=== PATIENT | female | born 1940 | race Caucasian/White ===

== ENCOUNTER 2018-10-26 23:47 | Inpatient (IN) ==
[2018-10-27] MEDS ORDERED: 0.9 % SODIUM CHLORIDE 1,000 ML IV ONE (00:08)
[2018-10-27] MEDS ORDERED: ONDANSETRON 4 MG/2 ML VIAL IV ONE (00:08)
--- NOTE | 2018-10-27 00:21 | Emergency Department Note ---
General Adult HPI - General Chief complaint: Fall Stated complaint: fall, cough, fever Time Seen by Provider: 10/27/18 00:07 Source: patient, EMS Mode of arrival: ambulatory Limitations: no limitations - History of Present Illness HPI Narrative: This 78-year-old female lives alone in her duplex. She fell down sometime this evening a couple of hours ago and was not able to get back up. She tried calling her friend who eventually called 911 for her and they were able to break into her house. She was generally weak but not able to stand on her legs and was brought in. There were no focal deficits. She had a temperature of 102 tympanic. She seemed a little confused as to the last 48 hours but other than that seem to remember things well. Here she seems to be able to answer questions fairly well. She describes some dizziness and li ghtheadedness earlier. She describes having dry lips every night. She has had a wet cough/cold for a few days. She has had a worsening asthma in the past 5 or 6 days. She does not use oxygen at home except at night. REVIEW OF SYSTEMS: Has had fevers, chills and sweats. Some sore throat and runny nose but no nasal congestion. No chest pain Has been coughing. Not short of breath. No wheezing or phlegm. No abdominal pain, nausea, diarrhea. Has had a little constipation. No dysuria but has had some difficulty emptying her bladder. Has some chronic back pain for which she has spinal cord stimulator and epidural infusion pump. Some headaches. No specific weakness although was found to be quite weak of her legs as paramedics try to help her.. Some dizziness No anxiety or depression she says but generalized anxiety disorder is in her old records. - Related Data Home Medications Medication Instructions Recorded Confirmed Albuterol Sulfate [Proair Hfa] 8.5 gm IH Q4H 06/01/15 06/01/15 Aspirin [Lite Coat Aspirin] 325 mg PO DAILY 06/01/15 06/01/15 Bisacodyl [Dulcolax] 10 mg PO HS 06/01/15 06/01/15 Bisoprolol Fumarate [Zebeta] 5 mg PO DAILY 06/01/15 06/01/15 Budesonide [Pulmicort] 0.5 mg IH BID 06/01/15 06/01/15 Diclofenac Sodium [Voltaren] 100 gm TP QIDP PRN 10/05/15 10/05/15 Esomeprazole Magnesium [Nexium] 40 mg PO DAILY 06/01/15 06/01/15 Estrogens, Conjugated [Premarin] 0.5 appful VAG Q48H 06/01/15 06/01/15 Gabapentin [Neurontin] 600 mg PO TID 06/01/15 06/01/15 HYDROcodone/APAP 10/325MG [[place] 1 - 2 tab PO Q4-6HP PRN 06/01/15 06/01/15 10/325Mg] Levothyroxine Sodium [Synthroid] 50 mcg PO DAILY 06/01/15 06/01/15 Menthol/Herbal Drugs [Cough Drops] 1 each MM PRN PRN 06/01/15 06/01/15 Montelukast [Singular] 10 mg PO DAILY 06/01/15 06/01/15 Nitroglycerin [Nitrostat] 0.4 mg SL Q5M PRN 06/01/15 06/01/15 Polyethylene Glycol 3350 [Miralax] 17 gm PO DAILY 06/01/15 06/01/15 Propylene Glycol/Peg 400 [Systane 1 - 2 drops OP PRN PRN 06/01/15 06/01/15 Gel Eye Drops] Psyllium Seed (with Sugar) 1,368 gm PO DAILY 06/01/15 06/01/15 [Metamucil Powder] busPIRone [Buspar] 7.5 mg PO DAILY 06/01/15 06/01/15 guaiFENesin [Mucinex] 600 mg PO PRN PRN 06/01/15 06/01/15 metFORMIN HCL [Glucophage] 500 mg PO DAILY 06/01/15 06/01/15 morphine SULFATE IN 0.9 % NACL 30 mg IV .COMPLEX 06/01/15 06/01/15 [Morphine-Ns 30 mg/30 ml] predniSONE [Prednisone] 1 mg PO Q48 06/01/15 06/01/15 predniSONE [Prednisone] 5 mg PO Q48H 06/01/15 06/01/15 valACYclovir [Valtrex] 1,000 mg PO DAILY 06/01/15 06/01/15 Allergies Allergy/AdvReac Type Severity Reaction Status Date / Time niacin Allergy Severe Rash Verified 06/01/15 15:10 oxycodone [From OxyContin] AdvReac Severe Unknown Verified 06/05/15 07:51 bacitracin AdvReac Unknown Verified 06/05/15 07:51 [From Neosporin ([id number])] Neomycin AdvReac Unknown Verified 06/05/15 07:51 [From Neosporin ([id number])] polymyxin B AdvReac Unknown Verified 06/05/15 07:51 [From Neosporin ([id number])] pravastatin [From Pravachol] AdvReac Unknown Verified 06/05/15 07:51 Sulfa (Sulfonamide AdvReac Unknown Verified 06/05/15 07:51 Antibiotics) sulfamethoxazole AdvReac Unknown Verified 06/05/15 07:51 [From Bactrim] trimethoprim [From Bactrim] AdvReac Unknown Verified 06/05/15 07:51 Past Medical History - Past Medical History [facility] Narrative: Medical History (Last Updated 10/27/18 @ 01:17 by Benji Martinez DO) Diabetes mellitus type 2, uncontrolled (Chronic) Hypertension, essential (Chronic) Chronic, continuous use of opioids (Chronic) Obesity (BMI 30-39.9) (Chronic) Chronic use of steroids (Chronic) Osteoarthritis (Chronic) GERD (gastroesophageal reflux disease) (Chronic) Hypothyroidism, acquired (Chronic) COPD (chronic obstructive pulmonary disease) (Chronic) Asthma, chronic (Chronic) Post herpetic neuralgia (Chronic) Osteoporosis (Chronic) Back Pain (Chronic) DDD (degenerative disc disease) (Chronic) Chronic constipation (Chronic) Anxiety, generalized (Chronic) DNR per patient request/conversation on admit; was lucid and appropriate. Source: old records reviewed Psychiatric history: Reports: anxiety. Denies: depression - Social History smoking status: Never smoker Alcohol use: Reports: None Drug use: Reports: none. Denies: marijuana Physical Exam Limitations: physical limitation General appearance: lethargic (Bedbound), malaise, sleepy Head: atraumatic, normocephalic Eye: Present: PERRL, EOMI (although at times appearance of "lazy eye" slightly), scleral icterus (trace), conjunctival injection (moderate-severe) ENT: mucous membranes dry, nasal congestion, hoarse voice Neck: Present: trachea midline. Absent: lymphadenopathy, thyromegaly Chest: Present: symmetric chest wall rise Respiratory: Present: normal lung sounds bilaterally. Absent: respiratory distress, wheezes, stridor, accessory muscle use, prolonged expiratory phase Cardiovascular: Present: regular rate, normal rhythm. Absent: systolic murmur, diastolic murmur Abdominal: Present: soft. Absent: distention, tenderness, guarding, rebound, rigidity, organomegaly, mass Extremities: Absent: pedal edema, pretibial edema, calf tenderness Back: Absent: CVA tenderness (R), CVA tenderness (L) Neurological: Present: oriented X3, CN II-XII intact, other (Quickly and easily seems to fall asleep.) Psychiatric: Present: flat affect, serious Skin: Present: warm, dry Course Vital Signs Temperature 100.0 F H 10/26/18 23:49 Pulse Rate 71 10/26/18 23:49 Respiratory Rate 20 10/26/18 23:49 Blood Pressure 149/53 10/26/18 23:49 Pulse Oximetry (%) 90 10/26/18 23:49 Temperature 100.0 F H 10/26/18 23:49 Pulse Rate 93 H 10/27/18 02:00 Respiratory Rate 16 10/27/18 02:00 Blood Pressure 150/56 10/27/18 02:00 Pulse Oximetry (%) 93 10/27/18 02:00 Medical Decision Making - [facility] Narrative Medical decision making narrative: 11:54 PM Fall for uncertain exact reason. We will do multitude of test. Has URI symptoms for the past 4 days. Will include influenza and chest x-ray and EKG. - Medical Records Medical records reviewed: Yes I reviewed the patient's medical records. - Lab Data Lab results reviewed: Yes I reviewed the patient's lab results. Result diagrams: 10/27/18 00:15 10/27/18 00:15 Lab Results 10/27/18 10/27/18 10/27/18 Range/Units 00:15 00:15 00:15 WBC 6.4 (4.5-11.0) K/mcL RBC 4.04 (4.00-5.20) M/mcL Hgb 11.6 L (12.0-15.0) g/dL Hct 35.6 L (36.0-48.0) % MCV 88.0 (80.0-100.0) fL MCH 28.6 (26.0-34.0) pg MCHC 32.5 (31.0-36.0) g/dL RDW 14.7 H (11.5-14.5) % Plt Count 135 L (140-440) K/mcL MPV 10.4 (7.4-10.4) fL Gran % 59.6 (38.0-78.0) % Lymph % (Auto) 24.8 (15.5-49.0) % [place] % (Auto) 14.6 H (1.0-12.0) % Eos % (Auto) 0.5 (0.0-7.0) % Baso % (Auto) 0.5 (0.0-2.0) % Gran # 3.8 (1.8-8.0) K/mcL Lymph # (Auto) 1.6 (1.5-4.8) K/mcL [place] # (Auto) 0.9 (0.1-0.9) K/mcL Eos # (Auto) 0 (0.0-0.7) K/mcL Baso # (Auto) 0 (0.0-0.3) K/mcL VBG Lactic Acid (0.5-2.0) mmol/L Sodium 136 (133-145) mmol/L Potassium 4.4 (3.3-5.1) mmol/L Chloride 96 (96-108) mmol/L Carbon Dioxide 29 (22-30) mmol/L Anion Gap 11.0 (8-16) BUN 21 (8-23) mg/dl Creatinine 1.0 (0.6-1.1) mg/dl GFR Calculation 53 Glucose 126 H (70-105) mg/dL Calcium 9.4 (8.6-10.4) mg/dl Total Bilirubin 0.5 (0.0-1.0) mg/dL AST 19 (0-37) U/l ALT 10 (0-40) U/l Alkaline Phosphatase 52 (39-117) U/L Troponin T (0-0.03) ng/ml Total Protein 7.4 (5.9-8.4) gm/dL Albumin 4.5 (3.2-5.2) gm/dL Globulin 2.9 (2.2-3.7) gm/dL Albumin/Globulin Ratio 1.6 (1.0-2.3) Procalcitonin (<0.10) ng/mL Urine Color Yellow Urine Appearance Clear Urine pH 5.5 (5.0-9.0) Ur Specific [place] 1.015 (1.003-1.030) Urine Protein Neg (NEG) mg/dL Urine Glucose (UA) Norm (NEG) mg/dL Urine Ketones Neg (NEG) mg/dL Urine Occult Blood Trace (<0.03) mg/dL Urine Nitrate Pos A (NEG) Urine Bilirubin Neg (NEG) mg/dL Urine Urobilinogen Norm (NEG) mg/dL Ur Leukocyte Esterase 1+ (small) (NEG) /uL Urine RBC 1 (0-1) /hpf Urine WBC 26 H (0-4) /hpf Ur Squamous Epith Cells < 1 (0-4) /hpf Urine Bacteria Few A (0) /hpf Urine Mucus Few (0) /hpf Ur Culture Indicated? Yes Ethyl Alcohol (<0.010) gm/dl 10/27/18 10/27/18 10/27/18 Range/Units 00:15 00:15 00:15 WBC (4.5-11.0) K/mcL RBC (4.00-5.20) M/mcL Hgb (12.0-15.0) g/dL Hct (36.0-48.0) % MCV (80.0-100.0) fL MCH (26.0-34.0) pg MCHC (31.0-36.0) g/dL RDW (11.5-14.5) % Plt Count (140-440) K/mcL MPV (7.4-10.4) fL Gran % (38.0-78.0) % Lymph % (Auto) (15.5-49.0) % [place] % (Auto) (1.0-12.0) % Eos % (Auto) (0.0-7.0) % Baso % (Auto) (0.0-2.0) % Gran # (1.8-8.0) K/mcL Lymph # (Auto) (1.5-4.8) K/mcL [place] # (Auto) (0.1-0.9) K/mcL Eos # (Auto) (0.0-0.7) K/mcL Baso # (Auto) (0.0-0.3) K/mcL VBG Lactic Acid 1.5 (0.5-2.0) mmol/L Sodium (133-145) mmol/L Potassium (3.3-5.1) mmol/L Chloride (96-108) mmol/L Carbon Dioxide (22-30) mmol/L Anion Gap (8-16) BUN (8-23) mg/dl Creatinine (0.6-1.1) mg/dl GFR Calculation Glucose (70-105) mg/dL Calcium (8.6-10.4) mg/dl Total Bilirubin (0.0-1.0) mg/dL AST (0-37) U/l ALT (0-40) U/l Alkaline Phosphatase (39-117) U/L Troponin T (0-0.03) ng/ml Total Protein (5.9-8.4) gm/dL Albumin (3.2-5.2) gm/dL Globulin (2.2-3.7) gm/dL Albumin/Globulin Ratio (1.0-2.3) Procalcitonin 0.52 (<0.10) ng/mL Urine Color Urine Appearance Urine pH (5.0-9.0) Ur Specific [place] (1.003-1.030) Urine Protein (NEG) mg/dL Urine Glucose (UA) (NEG) mg/dL Urine Ketones (NEG) mg/dL Urine Occult Blood (<0.03) mg/dL Urine Nitrate (NEG) Urine Bilirubin (NEG) mg/dL Urine Urobilinogen (NEG) mg/dL Ur Leukocyte Esterase (NEG) /uL Urine RBC (0-1) /hpf Urine WBC (0-4) /hpf Ur Squamous Epith Cells (0-4) /hpf Urine Bacteria (0) /hpf Urine Mucus (0) /hpf Ur Culture Indicated? Ethyl Alcohol < 0.010 (<0.010) gm/dl 10/27/18 Range/Units 00:15 WBC (4.5-11.0) K/mcL RBC (4.00-5.20) M/mcL Hgb (12.0-15.0) g/dL Hct (36.0-48.0) % MCV (80.0-100.0) fL MCH (26.0-34.0) pg MCHC (31.0-36.0) g/dL RDW (11.5-14.5) % Plt Count (140-440) K/mcL MPV (7.4-10.4) fL Gran % (38.0-78.0) % Lymph % (Auto) (15.5-49.0) % [place] % (Auto) (1.0-12.0) % Eos % (Auto) (0.0-7.0) % Baso % (Auto) (0.0-2.0) % Gran # (1.8-8.0) K/mcL Lymph # (Auto) (1.5-4.8) K/mcL [place] # (Auto) (0.1-0.9) K/mcL Eos # (Auto) (0.0-0.7) K/mcL Baso # (Auto) (0.0-0.3) K/mcL VBG Lactic Acid (0.5-2.0) mmol/L Sodium (133-145) mmol/L Potassium (3.3-5.1) mmol/L Chloride (96-108) mmol/L Carbon Dioxide (22-30) mmol/L Anion Gap (8-16) BUN (8-23) mg/dl Creatinine (0.6-1.1) mg/dl GFR Calculation Glucose (70-105) mg/dL Calcium (8.6-10.4) mg/dl Total Bilirubin (0.0-1.0) mg/dL AST (0-37) U/l ALT (0-40) U/l Alkaline Phosphatase (39-117) U/L Troponin T < 0.01 (0-0.03) ng/ml Total Protein (5.9-8.4) gm/dL Albumin (3.2-5.2) gm/dL Globulin (2.2-3.7) gm/dL Albumin/Globulin Ratio (1.0-2.3) Procalcitonin (<0.10) ng/mL Urine Color Urine Appearance Urine pH (5.0-9.0) Ur Specific [place] (1.003-1.030) Urine Protein (NEG) mg/dL Urine Glucose (UA) (NEG) mg/dL Urine Ketones (NEG) mg/dL Urine Occult Blood (<0.03) mg/dL Urine Nitrate (NEG) Urine Bilirubin (NEG) mg/dL Urine Urobilinogen (NEG) mg/dL Ur Leukocyte Esterase (NEG) /uL Urine RBC (0-1) /hpf Urine WBC (0-4) /hpf Ur Squamous Epith Cells (0-4) /hpf Urine Bacteria (0) /hpf Urine Mucus (0) /hpf Ur Culture Indicated? Ethyl Alcohol (<0.010) gm/dl - Radiology Data Radiology results reviewed: Yes I reviewed the patient's radiology results. - EKG Data EKG #1 EKG results narrative: No acute coronary syndrome findings. This ECG will be read by a final finisher forging dies. 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 Of note also is that she was found to have soiled clothing as far as stooling and urine and so there was a significant self-care deficit for hygiene. Her weakness did not allow her to get up after falling and so she is not able to return home and care for herself. Influenza A was positive. Oseltamivir was ordered for twice daily. She is not needing extra oxygen compared to her usual 2 L at night. Her chest x-ray demonstrates a lot of scarring but no specific new infiltrate that I iden tified. Sandhu catheter was placed and 400 cc of urine were immediately drained indicating at least some degree of urinary retention. Urine was positive for nitrates and WBCs. Antibiotic was not initiated at this point. Fever hovered around 101.0 several times. Acetaminophen was given. Even though her lips were markedly dry and cracked and mouth a bit dry, she did not appear to be that badly dehydrated with a BUN of 21 and creatinine of 1.1. 2:12 AM I spoke with Dr. Cary, hospitalist, who kindly accepts this patient for additional observation, treatment, and possible arrangements for her future care due to her self-care deficit. Disposition: Xfer As Outpt/Obs ([facility]) Referrals: Hans Arias MD [Primary Care Provider] -
[2018-10-27 01:10] LABS: Basophils # (Auto) 0 K/mcL (0.0-0.3); Basophils % (Auto) 0.5 % (0.0-2.0); Eosinophils # (Auto) 0 K/mcL (0.0-0.7); Eosinophils % (Auto) 0.5 % (0.0-7.0); Granulocytes % (Auto) 59.6 % (38.0-78.0); Lymphocytes # (Auto) 1.6 K/mcL (1.5-4.8); Lymphocytes % (Auto) 24.8 % (15.5-49.0); Mean Corpuscular HGB Conc 32.5 g/dL (31.0-36.0); Monocytes # (Auto) 0.9 K/mcL (0.1-0.9); Monocytes % (Auto) 14.6 % (1.0-12.0); Platelet Count 135 K/mcL (140-440); RBC 4.04 M/mcL (4.00-5.20); Red Cell Distribution Width 14.7 % (11.5-14.5)
[2018-10-27 01:27] LABS: ALT/SGPT 10 U/l (0-40); Albumin 4.5 gm/dL (3.2-5.2); Albumin/Globulin Ratio 1.6 (1.0-2.3); Alkaline Phosphatase 52 U/L (39-117); Blood Urea Nitrogen 21 mg/dl (8-23)
[2018-10-27 01:28] LABS: Appearance,Urine CLEAR; Bacteria,Urine FEW /hpf (0); Bilirubin,Urine NEG (NEG); Color,Urine YELLOW; Glucose,Urine (UA) NORM (NEG); Leukocyte Esterase,Urine 1+ (SMALL) /uL (NEG); Mucus,Urine FEW /hpf (0); PH,Urine 5.5 (5.0-9.0); Protein,Urine NEG (NEG); Specific Gravity,Urine 1.015 (1.003-1.030); Urine Blood TRACE mg/dL (<0.03); Urine RBC 1 /hpf (0-1); Urine Squamous Epithelial Cell < 1 /hpf (0-4); Urine WBC 26 /hpf (0-4); Urobilinogen,Urine NORM (NEG)
[2018-10-27] MEDS ORDERED: ACETAMINOPHEN 325 MG TABLET PO ONE (01:59)
[2018-10-27] MEDS ORDERED: PROCHLORPERAZINE 10 MG/2 ML VIAL IV ONE (01:59)
[2018-10-27] MEDS ORDERED: NALOXONE HCL 0.4 MG/ML VIAL IV PRN (02:04)
[2018-10-27] MEDS ORDERED: PROMETHAZINE 25 MG/ML VIAL IM PRN (02:04)
--- NOTE | 2018-10-27 04:05 | Cat Scan Report ---
CLINICAL INFORMATION: Confusion COMPARISON: None. TECHNIQUE: 2.5 mm helical slices were obtained in the skull base to vertex. Following reconstruction, axial reformatted images were reviewed at bone and parenchymal windows. The exam was performed using radiation dose optimization techniques including, but not limited to, automated exposure control, adjustment of the mA and/or kV according to patient size and use of iterative reconstruction technique. FINDINGS: The ventricles, sulci, fissures, and cisterns are symmetrically enlarged compatible with moderate age-related atrophy - no extra-axial fluid collection or mass appreciated. Mild patchy chronic ischemic change in the deep periventricular white matter is expected for age. A few remote lacunar infarcts noted in the basal ganglia and deep cerebral white matter. There is no intracerebral hemorrhage, mass effect, or edema. Bone windows show no significant osseous abnormality. There are small air-fluid levels in both maxillary sinuses and moderate mucosal thickening in the ethmoid sinuses. 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 No hemorrhage, edema or other acute intracerebral finding. Mild bilateral maxillary and ethmoid sinusitis. Interpreted and Authenticated by: Joshua Melissa 10/27/18
--- NOTE | 2018-10-27 04:06 | XRay Report ---
CLINICAL INFORMATION: FALL COMPARISON: 10/22/2009 FINDINGS: Film taken a suboptimal inspiratory result accentuates the cardiomediastinal silhouette. The heart is mildly enlarged, but unchanged. Mediastinum and pulmonary vessels are normal. The interstitial markings throughout both lungs are more prominent than expected likely a result of poor inspiration and slight film underpenetration. Right diaphragm mildly elevated as before. No effusions IMPRESSION: Mild stable cardiomegaly. Suboptimal inspiratory result. If there is strong suspicion of acute cardiopulmonary disease, suggest PA and lateral upright chest x-ray Interpreted and Authenticated by: Joshua Melissa 10/27/18
[2018-10-27] MEDS: ACETAMINOPHEN 325 MG TABLET PO PRN ×2 (07:42→16:28)
[2018-10-27] MEDS ORDERED: MAGNESIUM SULFATE 2 GM/50 ML BAG IV PRN (08:46)
[2018-10-27] MEDS ORDERED: ACETAMINOPHEN 650 MG/65 ML BOTTLE IV PRN (08:46)
[2018-10-27] MEDS: OSELTAMIVIR PHOSPHATE 75 MG CAPSULE PO SCH ×2 (09:30→20:22)
--- NOTE | 2018-10-27 11:51 | Internal Med History&Physical ---
Medical - H&P: HPI Patient information: Note initiated : 10/27/18 at 11:47 am Service Date, if different from initiated Date: [] Patient: Anne Rosado a 78 y/o F admitted on 10/27/18 for fall, cough, fever. Chief Complaint: [] Chief complaint: cough, weakness, fever History of present illness: Ms. Rosado is a 78 year old F was fairly independent at baseline and presents to the ER with progressive weakness over the last 3 days to the point patient could barely function. She endorses to fever, loss of appetite and due to profound weakness fell last evening unable to get back up on her feet. In desperation she called 911 and was brought into the ER for evaluation. Initial workup was consistent with influenza A, pyuria on UA patient was started on Tamiflu/crystalloids. Hospitalist service was requested for admission. At the time of evaluation patient is extremely lethargic. Unable to answer any questions or provide a meaningful history. She however denies headache, diarrhea, dysuria but endorses to weakness fatigue and loss of appetite. Review of systems A 10 point review of system was performed and is negative except for ones discussed above Medical - H&P: PMH Medical history: Diabetes mellitus type 2, uncontrolled (Chronic) Hypertension, essential (Chronic) Chronic, continuous use of opioids (Chronic) Obesity (BMI 30-39.9) (Chronic) Chronic use of steroids (Chronic) Osteoarthritis (Chronic) GERD (gastroesophageal reflux disease) (Chronic) Hypothyroidism, acquired (Chronic) COPD (chronic obstructive pulmonary disease) (Chronic) Asthma, chronic (Chronic) Post herpetic neuralgia (Chronic) Osteoporosis (Chronic) Back Pain (Chronic) DDD (degenerative disc disease) (Chronic) Chronic constipation (Chronic) Anxiety, generalized (Chronic) DNR per patient request/conversation on admit; was lucid and appropriate. Psychiatric history: Reports: anxiety. Denies: depression - Social History smoking status: Never smoker Alcohol use: Reports: None Drug use: Reports: none. Denies: marijuana Medical - H&P: Meds Home Medications Medication Instructions Recorded Confirmed Type Albuterol Sulfate [Proair Hfa] 8.5 gm IH Q4H 06/01/15 06/01/15 History Aspirin [Lite Coat Aspirin] 325 mg PO DAILY 06/01/15 06/01/15 History Bisacodyl [Dulcolax] 10 mg PO HS 06/01/15 06/01/15 History Bisoprolol Fumarate [Zebeta] 5 mg PO DAILY 06/01/15 06/01/15 History Budesonide [Pulmicort] 0.5 mg IH BID 06/01/15 06/01/15 History Diclofenac Sodium [Voltaren] 100 gm TP QIDP PRN 06/01/15 06/01/15 History Esomeprazole Magnesium [Nexium] 40 mg PO DAILY 06/01/15 06/01/15 History Estrogens, Conjugated [Premarin] 0.5 appful VAG Q48H 06/01/15 06/01/15 History Gabapentin [Neurontin] 600 mg PO TID 06/01/15 06/01/15 History HYDROcodone/APAP 10/325MG [[place] 1 - 2 tab PO Q4-6HP PRN 06/01/15 06/01/15 History 10/325Mg] Levothyroxine Sodium [Synthroid] 50 mcg PO DAILY 06/01/15 06/01/15 History Menthol/Herbal Drugs [Cough Drops] 1 each MM PRN PRN 06/01/15 06/01/15 History Montelukast [Singular] 10 mg PO DAILY 06/01/15 06/01/15 History Nitroglycerin [Nitrostat] 0.4 mg SL Q5M PRN 06/01/15 06/01/15 History Polyethylene Glycol 3350 [Miralax] 17 gm PO DAILY 06/01/15 06/01/15 History Propylene Glycol/Peg 400 [Systane 1 - 2 drops OP PRN PRN 06/01/15 06/01/15 History Gel Eye Drops] Psyllium Seed (with Sugar) 1,368 gm PO DAILY 06/01/15 06/01/15 History [Metamucil Powder] busPIRone [Buspar] 7.5 mg PO DAILY 06/01/15 06/01/15 History guaiFENesin [Mucinex] 600 mg PO PRN PRN 06/01/15 06/01/15 History metFORMIN HCL [Glucophage] 500 mg PO DAILY 06/01/15 06/01/15 History morphine SULFATE IN 0.9 % NACL 30 mg IV .COMPLEX 06/01/15 06/01/15 History [Morphine-Ns 30 mg/30 ml] predniSONE [Prednisone] 1 mg PO Q48 06/01/15 06/01/15 History predniSONE [Prednisone] 5 mg PO Q48H 06/01/15 06/01/15 History valACYclovir [Valtrex] 1,000 mg PO DAILY 06/01/15 06/01/15 History Allergies Allergy/AdvReac Type Severity Reaction Status Date / Time niacin Allergy Severe Rash Verified 06/01/15 15:10 oxycodone [From OxyContin] AdvReac Severe Unknown Verified 06/05/15 07:51 bacitracin AdvReac Unknown Verified 06/05/15 07:51 [From Neosporin ([id number])] Neomycin AdvReac Unknown Verified 06/05/15 07:51 [From Neosporin ([id number])] polymyxin B AdvReac Unknown Verified 06/05/15 07:51 [From Neosporin ([id number])] pravastatin [From Pravachol] AdvReac Unknown Verified 06/05/15 07:51 Sulfa (Sulfonamide AdvReac Unknown Verified 06/05/15 07:51 Antibiotics) sulfamethoxazole AdvReac Unknown Verified 06/05/15 07:51 [From Bactrim] trimethoprim [From Bactrim] AdvReac Unknown Verified 06/05/15 07:51 Medical - H&P: Exam - Constitutional Vitals: Temp Pulse Resp BP Pulse Ox 99 F 81 22 102/64 90 10/27/18 11:00 10/27/18 08:00 10/27/18 11:00 10/27/18 11:00 10/27/18 11:00 General appearance: moderate distress (lethargic and anxious) Exam: Eye movements symmetrical Oral cavity dry No ear nose discharge head normocephalic neck no lymphadenopathy S1-S2 regular rhythm Diminished breath sounds bases Lower extremity no cyanosis clubbing Abdomen soft Skin no suspicious lesion Site lethargic fatigue but no hallucination and agitation Neuro fatigued and lethargic however symmetrical strength Medical - H&P: Reslt - Labs CBC & Chem 7: 10/27/18 00:15 10/27/18 00:15 Labs: Short CBC 10/27/18 Range/Units 00:15 WBC 6.4 (4.5-11.0) K/mcL Hgb 11.6 L (12.0-15.0) g/dL Hct 35.6 L (36.0-48.0) % Plt Count 135 L (140-440) K/mcL BMP 10/27/18 00:15 Sodium 136 Potassium 4.4 Chloride 96 Carbon Dioxide 29 BUN 21 Creatinine 1.0 Glucose 126 H Calcium 9.4 Cardiac Enzymes 10/27/18 Range/Units 00:15 Troponin T < 0.01 (0-0.03) ng/ml Liver Function 10/27/18 Range/Units 00:15 Total Bilirubin 0.5 (0.0-1.0) mg/dL AST 19 (0-37) U/l ALT 10 (0-40) U/l Alkaline Phosphatase 52 (39-117) U/L Albumin 4.5 (3.2-5.2) gm/dL Urine 10/27/18 Range/Units 00:15 Urine Color Yellow Urine Appearance Clear Urine pH 5.5 (5.0-9.0) Ur Specific [place] 1.015 (1.003-1.030) Urine Protein Neg (NEG) mg/dL Urine Glucose (UA) Norm (NEG) mg/dL Medical - H&P: A/P (1) Influenza A Current visit: Yes Status: Acute * Acute viral syndrome with fever or weakness secondary to influenza A. Continue Tamiflu. Nose hypoxia or chest infiltrates. Continue supportive management including crystalloid/antipyretics/physical therapy * Uncomplicated UTI- no indication for antibiotics at this time * History of COPD on 2 L home oxygen/bronchodilators * DM type II-continue metformin/CC diet * Chronic pain on hydrocodonne * Anxiety disorder on BuSpar * Hypothyroidism on thyroxine * GERD on PPI hypertension on bisoprolol * Full code * Prophylaxis heparin Plan * Continue supportive management on antipyretics and crystalloids * Nutrition support/physical therapy * Pre-existing medical condition management as above * Observation admit Medical - H&P: Qual - VTE Deep Vein Thrombosis/Pulmonary Embolism Present on Admission: No
[2018-10-27] MEDS: HYDROcodone/APAP 5/325MG TABLET PO PRN (22:19)
[2018-10-28] MEDS ORDERED: DEXTROSE 31 GM ORAL.SUSP PO PRN ×2 (00:48→10:28)
[2018-10-28] MEDS ORDERED: DEXTROSE 50% 50 ML VIAL IV PRN ×2 (00:48→10:28)
[2018-10-28] MEDS: HYDROcodone/APAP 5/325MG TABLET PO PRN ×2 (01:46→10:04)
[2018-10-28 05:11] LABS: Mean Corpuscular HGB Conc 32.9 g/dL (31.0-36.0); Platelet Count 104 K/mcL (140-440); RBC 3.76 M/mcL (4.00-5.20); Red Cell Distribution Width 14.8 % (11.5-14.5)
[2018-10-28 05:30] LABS: ALT/SGPT 16 U/l (0-40); Albumin 3.8 gm/dL (3.2-5.2); Albumin/Globulin Ratio 1.3 (1.0-2.3); Alkaline Phosphatase 45 U/L (39-117); Bilirubin,Direct 0.2 mg/dL (0.0-0.3); Blood Urea Nitrogen 13 mg/dl (8-23); Gamma Glutamyl Transpeptidase 89 U/L (5-36); Uric Acid 7.7 mg/dL (2.5-8.0)
[2018-10-28 05:55] LABS: Band Neutrophils % 18 % (0-10); Lymphocytes % 19 % (15-49); Monocytes % (Manual) 9 % (1-12); Platelet Estimate DECREASED (NORMAL); RBC Morphology NORMAL (NORMAL); Segmented Neutrophils % 54 % (38-78)
[2018-10-28] MEDS ORDERED: INSULIN LISPRO 1 UNIT/0.01 ML UNIT SQ SCH (07:30)
[2018-10-28] MEDS ORDERED: predniSONE 20 MG TABLET PO SCH (08:00)
--- NOTE | 2018-10-28 09:47 | Internal Med Progress Note ---
Medical - PN: Subj Patient information: Note initiated : 10/28/18 at 9:44 am Service Date, if different from initiated Date: [] Patient: Anne Rosado a 78 y/o F admitted on 10/27/18 for fall, cough, fever. Chief Complaint: [] Interval history: Ms. Rosado is a 78 year old F was fairly independent at baseline and presents to the ER with progressive weakness over the last 3 days to the point patient could barely function. She endorses to fever, loss of appetite and due to profound weakness fell last evening unable to get back up on her feet. In desperation she called 911 and was brought into the ER for evaluation. Initial workup was consistent with influenza A, pyuria on UA patient was started on Tamiflu/crystalloids. Hospitalist service was requested for admission. At the time of evaluation patient is extremely lethargic. Unable to answer any questions or provide a meaningful history. She however denies headache, diarrhea, dysuria but endorses to weakness fatigue and loss of appetite. 3/3-patient very lethargic and fatigued and short of breath. Continuing bronchodilators/treatments. Start NG tube feeding for nutrition due to high risk aspiration and weakness. Foleys draining clear urine. MAXIMUM TEMPERATURE 102. Gram-negative bacilli in urine. - Constitutional Vitals: Vital Signs Temp Pulse Resp BP Pulse Ox 99.8 F H 88 20 142/62 96 10/28/18 07:29 10/28/18 07:29 10/28/18 07:29 10/28/18 07:29 10/28/18 07:29 Period Temp Pulse Resp BP Sys/Lee Pulse Ox Last 24 Hr 98.5 F-102.0 F 81-94 16-22 102-165/53-68 90-100 Intake and Output 10/27/18 10/28/18 10/28/18 21:59 05:59 13:59 Intake Total 380 Output Total 700 200 Balance -320 -200 Weight 210 lb Intake & Output: Intake & Output 10/27/18 10/28/18 10/28/18 21:59 05:59 13:59 Intake Total 380 Output Total 700 200 Balance -320 -200 Weight 210 lb Intake: Oral 380 Output: Urine Catheter Amount 700 200 Other: Urine Appearance Clear Clear Sediment Sediment Uretheral (Sandhu) Clear Clear Sediment Urine Color Bright Yellow Dark Yellow Uretheral (Sandhu) Bright Yellow Dark Yellow Urine Odor Uretheral (Sandhu) Normal Stool Size Small Stool Color Brown Stool Consistency Soft General appearance: moderate distress (shortness of breath), morbidly obese Exam: Fatigued and lethargic and very weak Labored breathing Frequent coughing No lymphedema Nondistended abdomen Medical - PN: Obj Da - Labs CBC & Chem 7: 10/28/18 04:07 10/28/18 04:07 Labs: Abnormal Lab Results 10/28/18 10/28/18 10/27/18 04:07 04:07 00:15 RBC 3.76 L Hgb 11.0 L Hct 33.4 L RDW 14.8 H Plt Count 104 L [place] % (Auto) Band Neutrophils % 18 H Glucose 113 H 126 H GGT 89 H AST 41 H Lactate Dehydrogenase 270 H Triglycerides 162 H Urine Nitrate Urine WBC Urine Bacteria 10/27/18 10/27/18 00:15 00:15 RBC Hgb 11.6 L Hct 35.6 L RDW 14.7 H Plt Count 135 L [place] % (Auto) 14.6 H Band Neutrophils % Glucose GGT AST Lactate Dehydrogenase Triglycerides Urine Nitrate Pos A Urine WBC 26 H Urine Bacteria Few A Meds: Medications Acetaminophen (Tylenol) 650 mg PO Q6HP PRN PRN Reason: PAIN/FEVER > 101 Last Admin: 10/27/18 16:28 Dose: 650 mg Documented by: Hydrocodone Bitart/Acetaminophen ([place] 5/325mg) 1 tab PO Q4HP PRN PRN Reason: PAIN LEVEL 3-6 Last Admin: 10/27/18 22:19 Dose: 1 tab Documented by: Dextrose (Dextrose 50%) 0 ml IV UD PRN PRN Reason: Hypoglycemia Diagnostic Test (Pha) (Accu-Chek) 1 each FS [facility] Last Admin: 10/28/18 07:42 Dose: 1 each Documented by: Glucose (Insta-Glucose) 15 gm PO PRN PRN PRN Reason: Hypoglycemia Magnesium Sulfate (Magnesium Sulfate) 2 gm in 50 mls @ 50 mls/hr IV UD PRN PRN Reason: Mag < or = 1.7 Acetaminophen (Ofirmev) 650 mg in 65 mls @ 130 mls/hr IV Q6HP PRN PRN Reason: PAIN/FEVER > 101 Insulin Human Lispro (Humalog) 0 unit SQ [facility]; Protocol Last Admin: 10/28/18 07:42 Dose: Not Given Documented by: Naloxone HCl (Narcan) 0.1 mg IV Q2MIN PRN PRN Reason: Opiate Reversal Oseltamivir Phosphate (Tamiflu) 75 mg PO BID [facility] Last Admin: 10/27/18 20:22 Dose: 75 mg Documented by: Promethazine HCl (Phenergan) 12.5 mg IM Q6HP PRN PRN Reason: Nausea And Vomiting Last Admin: 10/28/18 02:00 Dose: 12.5 mg Documented by: Medical - PN: A/P - Time Spent With Patient Total time spent is greater than 50% in coordination of care (as documented) at patient's floor/unit and/or counseling patient: 25 - 35 minutes (1) Influenza A Status: Acute Assessment and plan: * Acute viral syndrome with fever or weakness secondary to influenza A. Continue Tamiflu. Nose hypoxia or chest infiltrates. Continue supportive management including crystalloid/antipyretics/physical therapy * Complicated GNR UTI-in light of mental status change, fever start antibiotics * History of COPD on 2 L home oxygen/bronchodilators * DM type II-continue metformin/CC diet * Chronic pain on hydrocodonne * Anxiety disorder on BuSpar * Hypothyroidism on thyroxine * GERD on PPI hypertension on bisoprolol * Full code * Prophylaxis heparin Plan * Start Rocephin * Bronchodilators/oral steroid * NG tube nutrition * Continue supportive management on antipyretics and crystalloids * Physical therapy * Pre-existing medical condition management as above * Transition to inpatient status Current Visit: Yes Medical - PN: Qual - VTE Deep Vein Thrombosis/Pulmonary Embolism Present on Admission: No
[2018-10-28] MEDS ORDERED: cefTRIAXone 2 GM in DEXTROSE 5% IN WATER 50 ML IV SCH (10:00)
[2018-10-28] MEDS: OSELTAMIVIR PHOSPHATE 75 MG CAPSULE PO SCH ×2 (10:04→20:12)
[2018-10-28] MEDS ORDERED: NALOXONE HCL 0.4 MG/ML VIAL IV PRN (10:28)
[2018-10-28] MEDS ORDERED: MAGNESIUM SULFATE 2 GM/50 ML BAG IV PRN (10:28)
[2018-10-28] MEDS ORDERED: ACETAMINOPHEN 650 MG/65 ML BOTTLE IV PRN (10:28)
[2018-10-28] MEDS ORDERED: HYDROcodone/APAP 5/325MG TABLET PO PRN (10:28)
[2018-10-28] MEDS ORDERED: PROMETHAZINE 25 MG/ML VIAL IM PRN (10:28)
[2018-10-28] MEDS ORDERED: ACETAMINOPHEN 325 MG TABLET PO PRN (10:28)
[2018-10-28] MEDS: IPRATROPIUM/ALBUTEROL 3 ML AMPUL.NEB NEB SCH ×4 (10:55→22:55)
[2018-10-28] MEDS ORDERED: IPRATROPIUM/ALBUTEROL 3 ML AMPUL.NEB NEB SCH (11:00)
[2018-10-28] MEDS: INSULIN LISPRO 1 UNIT/0.01 ML UNIT SQ SCH ×2 (11:28→16:29)
[2018-10-28] MEDS ORDERED: MORPHINE SULFATE IV SCH (12:15)
[2018-10-28] MEDS ORDERED: [UNRECOGNIZED DRUG - OTHER] IV SCH (12:15)
[2018-10-28] MEDS ORDERED: NACL 0.9% IV SCH (12:15)
--- NOTE | 2018-10-28 13:34 | XRay Report ---
CLINICAL INFORMATION: Verification of correct NG placement COMPARISON: None. FINDINGS: NG tube overlies the proximal gastric body. Stool gas pattern is normal. No free air, soft tissue mass or organomegaly. Spinal stimulator, electrodes and lead wires are in expected location overlying the central canal with electrodes at the T9 level IMPRESSION: No acute disease. NG tube in the proximal gastric body Interpreted and Authenticated by: Joshua Melissa 10/28/18
[2018-10-28] MEDS: GABAPENTIN 300 MG CAPSULE PO SCH ×2 (16:17→20:11)
[2018-10-28] MEDS: ATORVASTATIN 20 MG TABLET PO SCH (20:12)
[2018-10-29] MEDS: INSULIN LISPRO 1 UNIT/0.01 ML UNIT SQ SCH ×5 (00:35→21:27)
[2018-10-29] MEDS: IPRATROPIUM/ALBUTEROL 3 ML AMPUL.NEB NEB SCH ×6 (04:01→22:36)
[2018-10-29 05:07] LABS: Mean Cell Volume 88.7 fL (80.0-100.0); Mean Corpuscular HGB Conc 32.9 g/dL (31.0-36.0); Platelet Count 108 K/mcL (140-440); RBC 3.67 M/mcL (4.00-5.20); Red Cell Distribution Width 14.6 % (11.5-14.5)
[2018-10-29 05:56] LABS: ALT/SGPT 15 U/l (0-40); Albumin 3.5 gm/dL (3.2-5.2); Albumin/Globulin Ratio 1.2 (1.0-2.3); Alkaline Phosphatase 44 U/L (39-117); Bilirubin,Direct < 0.2 mg/dL (0.0-0.3); Blood Urea Nitrogen 20 mg/dl (8-23); Gamma Glutamyl Transpeptidase 88 U/L (5-36); Uric Acid 9.2 mg/dL (2.5-8.0)
[2018-10-29 06:29] LABS: Band Neutrophils % 6 % (0-10); Lymphocytes % 10 % (15-49); Monocytes % (Manual) 2 % (1-12); Platelet Estimate DECREASED (NORMAL); RBC Morphology NORMAL (NORMAL); Segmented Neutrophils % 82 % (38-78)
--- NOTE | 2018-10-29 07:51 | XRay Report ---
HISTORY: Fever, cough and recent fall FINDINGS: Patient has developed a small consolidating infiltrate in the right lower lobe. There are air bronchograms. There may be a superimposed small pleural effusion. The diaphragm appears mildly elevated. There are interstitial infiltrates in the left lung with the greatest involvement behind left heart border and left hilum. These infiltrates have become worse since 10/27/18. The Right heart border is obscured but the heart does not appear to be abnormally enlarged. The pulmonary vessels are partially obscured by the interstitial infiltrates. Nasogastric tube has been inserted into the stomach. There are electrodes in the spinal canal at the T8 level. IMPRESSION: Worsening bilateral pulmonary infiltrates with the greatest involvement in the right lower lobe Interpreted and Authenticated by: Pee Bender 10/29/18
[2018-10-29] MEDS ORDERED: predniSONE 20 MG TABLET PO SCH (08:00)
[2018-10-29] MEDS: MONTELUKAST 10 MG TABLET PO SCH (08:10)
[2018-10-29] MEDS: BISOPROLOL 5 MG TABLET PO SCH (08:10)
[2018-10-29] MEDS: GABAPENTIN 300 MG CAPSULE PO SCH ×3 (08:10→20:51)
[2018-10-29] MEDS: OSELTAMIVIR PHOSPHATE 75 MG CAPSULE PO SCH ×2 (08:10→20:51)
[2018-10-29] MEDS: LISINOPRIL 5 MG TABLET PO SCH (08:10)
[2018-10-29] MEDS: predniSONE 1 MG TABLET PO SCH (08:11)
[2018-10-29] MEDS: metFORMIN 500 MG TABLET PO SCH (08:11)
[2018-10-29] MEDS: cefTRIAXone 2 GM in DEXTROSE 5% IN WATER 50 ML IV SCH (08:58)
--- NOTE | 2018-10-29 09:03 | Internal Med Progress Note ---
Medical - PN: Subj Patient information: Note initiated : 10/29/18 at 9:00 am Service Date, if different from initiated Date: [] Patient: Anne Rosado a 78 y/o F admitted on 10/28/18 for fall, cough, fever. Chief Complaint: [] Interval history: Ms. Rosado is a 78 year old F was fairly independent at baseline and presents to the ER with progressive weakness over the last 3 days to the point patient could barely function. She endorses to fever, loss of appetite and due to profound weakness fell last evening unable to get back up on her feet. In desperation she called 911 and was brought into the ER for evaluation. Initial workup was consistent with influenza A, pyuria on UA patient was started on Tamiflu/crystalloids. Hospitalist service was requested for admission. At the time of evaluation patient is extremely lethargic. Unable to answer any questions or provide a meaningful history. She however denies headache, diarrhea, dysuria but endorses to weakness fatigue and loss of appetite. 3/-patient very lethargic and fatigued and short of breath. Continuing bronchodilators/treatments. Start NG tube feeding for nutrition due to high risk aspiration and weakness. Foleys draining clear urine. MAXIMUM TEMPERATURE 102. Gram-negative bacilli in urine. 3/-patient doing remarkably better. Ongoing tube feeds, speech ST eval today. Afebrile. More lucid and alert and sitting on chair. Able to converse. Continue physical therapy. Continue supportive treatment. May discontinue tube feeds if able to swallow - Constitutional Vitals: Vital Signs Temp Pulse Resp BP Pulse Ox 98.7 F 91 H 18 110/58 99 10/29/18 07:46 10/29/18 07:38 10/29/18 07:46 10/29/18 07:46 10/29/18 07:46 Period Temp Pulse Resp BP Sys/Lee Pulse Ox Last 24 Hr 98.4 F-101.0 F 79-105 15-28 99-150/49-62 93-99 Intake and Output 10/28/18 10/29/18 10/29/18 21:59 05:59 13:59 Intake Total 427 691 0332 Output Total 750 600 Balance -290 -405 1720 Intake & Output: Intake & Output 10/28/18 10/29/18 10/29/18 21:59 05:59 13:59 Intake Total 295 325 0079 Output Total 750 600 Balance -290 -405 1720 Intake: Oral 800 Tube Feeding 130 120 920 GI Tube Flush 330 75 Output: Urine Catheter Amount 750 600 Other: Urine Appearance Clear Cloudy Uretheral (Sandhu) Clear Urine Color Dark Yellow Dark Yellow Uretheral (Sandhu) Dark Yellow Dark Yellow Urine Odor Normal Strong Uretheral (Sandhu) Normal General appearance: no acute distress Exam: Alert oriented Nonlabored breathing No anxiety Nondistended abdomen Medical - PN: Obj Da - Labs CBC & Chem 7: 10/29/18 03:49 10/29/18 03:49 Labs: Abnormal Lab Results 10/29/18 10/29/18 10/28/18 03:49 03:49 04:07 WBC 4.4 L RBC 3.67 L Hgb 10.7 L Hct 32.6 L RDW 14.6 H Plt Count 108 L [place] % (Auto) Seg Neutrophils % 82 H Band Neutrophils % Lymphocytes % 10 L Glucose 290 H 113 H Uric Acid 9.2 H GGT 88 H 89 H AST 41 H Lactate Dehydrogenase 270 H Triglycerides 162 H Urine Nitrate Urine WBC Urine Bacteria 10/28/18 10/27/18 10/27/18 04:07 00:15 00:15 WBC RBC 3.76 L Hgb 11.0 L Hct 33.4 L RDW 14.8 H Plt Count 104 L [place] % (Auto) Seg Neutrophils % Band Neutrophils % 18 H Lymphocytes % Glucose 126 H Uric Acid GGT AST Lactate Dehydrogenase Triglycerides Urine Nitrate Pos A Urine WBC 26 H Urine Bacteria Few A 10/27/18 00:15 WBC RBC Hgb 11.6 L Hct 35.6 L RDW 14.7 H Plt Count 135 L [place] % (Auto) 14.6 H Seg Neutrophils % Band Neutrophils % Lymphocytes % Glucose Uric Acid GGT AST Lactate Dehydrogenase Triglycerides Urine Nitrate Urine WBC Urine Bacteria Meds: Medications Acetaminophen (Tylenol) 650 mg PO Q6HP PRN PRN Reason: PAIN/FEVER > 101 Hydrocodone Bitart/Acetaminophen ([place] 5/325mg) 1 tab PO Q4HP PRN PRN Reason: PAIN LEVEL 3-6 Albuterol/Ipratropium (Duoneb) 3 ml NEB Q4HRT [facility] Last Admin: 10/29/18 07:36 Dose: 3 ml Documented by: Atorvastatin Calcium (Lipitor) 40 mg PO HS [facility] Last Admin: 10/28/18 20:12 Dose: 40 mg Documented by: Bisoprolol Fumarate (Zebeta) 5 mg PO DAILY [facility] Last Admin: 10/29/18 08:10 Dose: 5 mg Documented by: Dextrose (Dextrose 50%) 0 ml IV UD PRN PRN Reason: Hypoglycemia Diagnostic Test (Pha) (Accu-Chek) 1 each FS Q6 [facility] Last Admin: 10/29/18 05:58 Dose: 1 each Documented by: Gabapentin (Neurontin) 600 mg PO TID [facility] Last Admin: 10/29/18 08:10 Dose: 600 mg Documented by: Glucose (Insta-Glucose) 15 gm PO PRN PRN PRN Reason: Hypoglycemia Ceftriaxone Sodium 2 gm/ (Dextrose) 50 mls @ 100 mls/hr IV Q24H [facility] Last Admin: 10/29/18 08:58 Dose: 100 mls/hr Documented by: Magnesium Sulfate (Magnesium Sulfate) 2 gm in 50 mls @ 50 mls/hr IV UD PRN PRN Reason: Mag < or = 1.7 Acetaminophen (Ofirmev) 650 mg in 65 mls @ 130 mls/hr IV Q6HP PRN PRN Reason: PAIN/FEVER > 101 Last Admin: 10/28/18 11:31 Dose: 130 mls/hr Documented by: Insulin Human Lispro (Humalog) 0 unit SQ Q6 [facility]; Protocol Last Admin: 10/29/18 06:03 Dose: 8 units Documented by: Lisinopril (Zestril) 5 mg PO DAILY [facility] Last Admin: 10/29/18 08:10 Dose: 5 mg Documented by: Metformin HCl (Glucophage) 1,000 mg PO [facility] Last Admin: 10/29/18 08:11 Dose: 1,000 mg Documented by: Montelukast Sodium (Singular) 10 mg PO DAILY [facility] Last Admin: 10/29/18 08:10 Dose: 10 mg Documented by: Naloxone HCl (Narcan) 0.1 mg IV Q2MIN PRN PRN Reason: Opiate Reversal Oseltamivir Phosphate (Tamiflu) 75 mg PO BID [facility] Last Admin: 10/29/18 08:10 Dose: 75 mg Documented by: Prednisone (Prednisone) 4.5 mg PO [facility] Last Admin: 10/29/18 08:11 Dose: 4.5 mg Documented by: Promethazine HCl (Phenergan) 12.5 mg IM Q6HP PRN PRN Reason: Nausea And Vomiting Medical - PN: A/P - Time Spent With Patient Total time spent is greater than 50% in coordination of care (as documented) at patient's floor/unit and/or counseling patient: 25 - 35 minutes (1) Influenza A Status: Acute Assessment and plan: * Acute viral syndrome with fever or weakness secondary to influenza A. Continue Tamiflu. Nose hypoxia or chest infiltrates. Continue supportive management including crystalloid/antipyretics/physical therapy * Acute General status secondary to acute viral syndrome-clinically improving. * Complicated GNR UTI- continue empiric antibiotic coverage and de-escalate based on sensitivities. * History of COPD on 2 L home oxygen/bronchodilators * DM type II-continue metformin/CC diet * Chronic pain on hydrocodonne * Anxiety disorder on BuSpar * Hypothyroidism on thyroxine * GERD on PPI hypertension on bisoprolol * Full code * Prophylaxis heparin Plan * Continue antibiotic coverage and de-escalate based on sensitivities * ST eval/nutrition support * Bronchodilators/oral steroid * Continue supportive management on antipyretics and crystalloids * Daily Physical therapy * Pre-existing medical condition management as above Current Visit: Yes Medical - PN: Qual - VTE Deep Vein Thrombosis/Pulmonary Embolism Present on Admission: No
[2018-10-29] MEDS ORDERED: ALBUTEROL SULFATE 1 PUFF INHALER IH PRN (14:18)
[2018-10-29] MEDS ORDERED: HYDROcodone/APAP 10/325MG TABLET PO PRN (14:18)
[2018-10-29] MEDS ORDERED: Systane 0.3-0.4% Eye Drops OP PRN (14:18)
[2018-10-29] MEDS ORDERED: ALBUTEROL SULFATE 2.5 MG/3 ML NEBULIZER NEB PRN (14:18)
--- NOTE | 2018-10-29 18:35 | General Surgery Consult Note ---
History of Present Illness Patient information: Note initiated : 10/29/18 at 6:29 pm Service Date, if different from initiated Date: [] Patient: Anne Rosado 78 y/o F admitted on 10/28/18 for fall, cough, fever. Chief Complaint: [] Consult date: 10/29/18 Requesting physician: Nimesh Yi (Skin lesion lump / back) History of present illness: I saw this patient in room 112 with Nursing staff. 78/F admitted via ER with severe generalized weakness, lethargy, fever and UTI. Reportedly, she was active and independent before being admitted. She was noted to have acute viral syndrome and influenza. Her comorbid medical conditions are COPD, DM2, Hypothyroid and GERD. During her assessment for pressure points skin compromise, she was noted to have a large sebaceous cyst on her back. Medications and Allergies Home Medications Medication Instructions Recorded Confirmed Type Albuterol Sulfate [Proair Hfa] 1 - 2 puff IH Q4HP PRN 06/01/15 10/29/18 History Bisacodyl [Dulcolax] 10 mg PO HS 06/01/15 10/29/18 History Bisoprolol Fumarate [Zebeta] 5 mg PO DAILY 06/01/15 10/28/18 History Budesonide [Pulmicort] 0.5 mg IH BID 06/01/15 10/29/18 History Esomeprazole Magnesium [Nexium] 40 mg PO DAILY 06/01/15 10/29/18 History Gabapentin [Neurontin] 600 mg PO TID 06/01/15 10/28/18 History HYDROcodone/APAP 10/325MG [[place] 1 tab PO QIDP PRN 06/01/15 10/29/18 History 10/325Mg] Levothyroxine Sodium [Synthroid] 50 mcg PO DAILY 06/01/15 10/29/18 History Montelukast [Singular] 10 mg PO DAILY 06/01/15 10/28/18 History Polyethylene Glycol 3350 [Miralax] 17 gm PO DAILY 06/01/15 10/29/18 History metFORMIN HCL [Glucophage] 1,000 mg PO DAILY 06/01/15 10/28/18 History morphine SULFATE IN 0.9 % NACL 30 mg IV .COMPLEX 06/01/15 10/28/18 History [Morphine-Ns 30 mg/30 ml] predniSONE [Prednisone] 4.5 mg PO DAILY 06/01/15 10/28/18 History Atorvastatin [Lipitor] 40 mg PO HS 10/28/18 10/28/18 History Lisinopril [Zestril] 5 mg PO DAILY 10/28/18 10/28/18 History Albuterol Sulfate [Ventolin] 2.5 mg NEB TIDP PRN 10/29/18 10/29/18 History Erythromycin Ophth Oint [Ilotycin 1 ribbon OD HS 10/29/18 10/29/18 History Ophth Oint] Fluconazole [Diflucan] 200 mg PO DAILY 10/29/18 10/29/18 History Furosemide [Lasix] 80 mg PO DAILY 10/29/18 10/29/18 History Lactobacillus Acidophilus 0.5 mg PO DAILY 10/29/18 10/29/18 History [Acidophilus Probiotic] Propylene Glycol/Peg 400 [Systane 1 gtt OP PRN PRN 10/29/18 10/29/18 History 0.3-0.4% Eye Drops] Allergies Allergy/AdvReac Type Severity Reaction Status Date / Time niacin Allergy Severe Rash Verified 06/01/15 15:10 bacitracin AdvReac Unknown Unknown Verified 10/28/18 11:22 [From Neosporin ([id number])] Neomycin AdvReac Unknown Unknown Verified 10/28/18 11:22 [From Neosporin ([id number])] oxycodone [From OxyContin] AdvReac Unknown Unknown Verified 10/28/18 11:22 polymyxin B AdvReac Unknown Unknown Verified 10/28/18 11:22 [From Neosporin ([id number])] pravastatin [From Pravachol] AdvReac Unknown Unknown Verified 10/28/18 11:22 Sulfa (Sulfonamide AdvReac Unknown Unknown Verified 10/28/18 11:22 Antibiotics) Exam Temp Pulse Resp BP Pulse Ox 98.4 F 74 18 103/60 98 10/29/18 16:00 10/29/18 15:30 10/29/18 16:00 10/29/18 16:00 10/29/18 16:00 - General physical appearance well developed, well nourished, moderate distress, other (Improved since admission and now more lucid and coherent and cooperative.) - Integumentary Present: other (FOCUSED skin examination: A NON COMPLICATED large sebaceous cyst mid back thoracic area. Punctum. NO eveidence of acute infection. ) Results - Labs 10/29/18 03:49 10/29/18 03:49 Abnormal lab results 10/29/18 10/29/18 Range/Units 03:49 03:49 WBC 4.4 L (4.5-11.0) K/mcL RBC 3.67 L (4.00-5.20) M/mcL Hgb 10.7 L (12.0-15.0) g/dL Hct 32.6 L (36.0-48.0) % RDW 14.6 H (11.5-14.5) % Plt Count 108 L (140-440) K/mcL Seg Neutrophils % 82 H (38-78) % Lymphocytes % 10 L (15-49) % Glucose 290 H (70-105) mg/dL Uric Acid 9.2 H (2.5-8.0) mg/dL GGT 88 H (5-36) U/L Diabetes panel 10/29/18 Range/Units 03:49 Sodium 143 (133-145) mmol/L Potassium 4.3 (3.3-5.1) mmol/L Chloride 105 (96-108) mmol/L Carbon Dioxide 25 (22-30) mmol/L BUN 20 (8-23) mg/dl Creatinine 0.9 (0.6-1.1) mg/dl Glucose 290 H (70-105) mg/dL Calcium 8.7 (8.6-10.4) mg/dl AST 31 (0-37) U/l ALT 15 (0-40) U/l Alkaline Phosphatase 44 (39-117) U/L Total Protein 6.5 (5.9-8.4) gm/dL Albumin 3.5 (3.2-5.2) gm/dL Triglycerides 131 (<150) mg/dl Calcium panel 10/29/18 Range/Units 03:49 Calcium 8.7 (8.6-10.4) mg/dl Phosphorus 3.4 (2.7-4.5) mg/dL Albumin 3.5 (3.2-5.2) gm/dL Pituitary panel 10/29/18 Range/Units 03:49 Sodium 143 (133-145) mmol/L Potassium 4.3 (3.3-5.1) mmol/L Chloride 105 (96-108) mmol/L Carbon Dioxide 25 (22-30) mmol/L BUN 20 (8-23) mg/dl Creatinine 0.9 (0.6-1.1) mg/dl Glucose 290 H (70-105) mg/dL Calcium 8.7 (8.6-10.4) mg/dl Adrenal panel 10/29/18 Range/Units 03:49 Sodium 143 (133-145) mmol/L Potassium 4.3 (3.3-5.1) mmol/L Chloride 105 (96-108) mmol/L Carbon Dioxide 25 (22-30) mmol/L BUN 20 (8-23) mg/dl Creatinine 0.9 (0.6-1.1) mg/dl Glucose 290 H (70-105) mg/dL Calcium 8.7 (8.6-10.4) mg/dl Total Bilirubin 0.2 (0.0-1.0) mg/dL AST 31 (0-37) U/l ALT 15 (0-40) U/l Alkaline Phosphatase 44 (39-117) U/L Total Protein 6.5 (5.9-8.4) gm/dL Albumin 3.5 (3.2-5.2) gm/dL All other labs normal. Assessment and Plan (1) Sebaceous cyst Status: Chronic Priority: Low Comment: This was an incidental finding. Will follow clinically. Agree with treatment of immediate medical condition. WIll see her PRN after fully recovered or sooner if any acute inflammation or infection noted. Discussed with nursing staff.
[2018-10-29] MEDS: BISACODYL 5 MG TABLET PO SCH (20:52)
[2018-10-29] MEDS: ATORVASTATIN 20 MG TABLET PO SCH (20:52)
[2018-10-29] MEDS: ERYTHROMYCIN OPHTH OINT 3.5GM TUBE OD SCH (21:33)
[2018-10-29] MEDS: BUDESONIDE 1 PUFF INHALER INH SCH (21:34)
[2018-10-30] MEDS: IPRATROPIUM/ALBUTEROL 3 ML AMPUL.NEB NEB SCH ×6 (03:01→23:12)
[2018-10-30 06:53] LABS: Mean Cell Volume 89.2 fL (80.0-100.0); Mean Corpuscular HGB Conc 32.1 g/dL (31.0-36.0); Platelet Count 133 K/mcL (140-440); RBC 3.56 M/mcL (4.00-5.20); Red Cell Distribution Width 15.1 % (11.5-14.5)
[2018-10-30 07:02] LABS: ALT/SGPT 14 U/l (0-40); Albumin 3.7 gm/dL (3.2-5.2); Albumin/Globulin Ratio 1.3 (1.0-2.3); Alkaline Phosphatase 44 U/L (39-117); Bilirubin,Direct < 0.2 mg/dL (0.0-0.3); Blood Urea Nitrogen 39 mg/dl (8-23); Gamma Glutamyl Transpeptidase 77 U/L (5-36); Uric Acid 9.5 mg/dL (2.5-8.0)
[2018-10-30 08:10] LABS: Anisocytosis FEW (NONE SEEN); Basophils % (Manual) 1 % (0-2); Lymphocytes % 19 % (15-49); Monocytes % (Manual) 8 % (1-12); Ovalocytes FEW (NONE SEEN); Platelet Estimate DECREASED (NORMAL); RBC Morphology ABNORM (NORMAL); Segmented Neutrophils % 72 % (38-78)
--- NOTE | 2018-10-30 08:12 | XRay Report ---
HISTORY: Fever, cough pulmonary infiltrates and recent fall FINDINGS: Lung volumes are small. There are bilateral infiltrates with the greatest consolidation in the lower lobes. There is been no significant change in the right lung. The left lung volume is smaller today than it was yesterday and there is increasing opacification developing in the region of the lingula. There is relative sparing of the upper lobes. The heart is partially obscured by the elevated diaphragm but does not appear to be enlarged. The nasogastric tube has been removed since yesterday. IMPRESSION: Bilateral infiltrates, becoming worse in the left lung and remaining stable on the right side. This may be a combination of pneumonia and atelectasis. Interpreted and Authenticated by: Pee Bender 10/30/18
[2018-10-30] MEDS: LEVOTHYROXINE 50 MCG TABLET PO SCH (08:29)
[2018-10-30] MEDS: INSULIN LISPRO 1 UNIT/0.01 ML UNIT SQ SCH ×4 (08:29→20:59)
[2018-10-30] MEDS: PANTOPRAZOLE 40 MG TABLET PO SCH (08:29)
[2018-10-30] MEDS: BISOPROLOL 5 MG TABLET PO SCH (08:31)
[2018-10-30] MEDS: predniSONE 1 MG TABLET PO SCH (08:31)
[2018-10-30] MEDS: metFORMIN 500 MG TABLET PO SCH (08:32)
[2018-10-30] MEDS: FLUCONAZOLE 100 MG TABLET PO SCH (08:51)
[2018-10-30] MEDS: cefTRIAXone 2 GM in DEXTROSE 5% IN WATER 50 ML IV SCH (08:52)
[2018-10-30] MEDS ORDERED: ESOMEPRAZOLE MAGNESIUM 40 MG PO SCH (09:00)
--- NOTE | 2018-10-30 09:28 | Internal Med Progress Note ---
Medical - PN: Subj Patient information: Note initiated : 10/30/18 at 9:25 am Service Date, if different from initiated Date: [] Patient: Anne Rosado a 78 y/o F admitted on 10/28/18 for fall, cough, fever. Chief Complaint: [] Interval history: Ms. Rosado is a 78 year old F was fairly independent at baseline and presents to the ER with progressive weakness over the last 3 days to the point patient could barely function. She endorses to fever, loss of appetite and due to profound weakness fell last evening unable to get back up on her feet. In desperation she called 911 and was brought into the ER for evaluation. Initial workup was consistent with influenza A, pyuria on UA patient was started on Tamiflu/crystalloids. Hospitalist service was requested for admission. At the time of evaluation patient is extremely lethargic. Unable to answer any questions or provide a meaningful history. She however denies headache, diarrhea, dysuria but endorses to weakness fatigue and loss of appetite. 3/3-patient very lethargic and fatigued and short of breath. Continuing bronchodilators/treatments. Start NG tube feeding for nutrition due to high risk aspiration and weakness. Foleys draining clear urine. MAXIMUM TEMPERATURE 102. Gram-negative bacilli in urine. 3/4-patient doing remarkably better. Ongoing tube feeds, speech ST eval today. Afebrile. More lucid and alert and sitting on chair. Able to converse. Continue physical therapy. Continue supportive treatment. May discontinue tube feeds if able to swallow 3/5-patient more alert and awake, NG discontinued, tolerating diet, to person assist physical therapy. Anticipate SNF transfer. Continue Tamiflu. Continue supportive management - Constitutional Vitals: Vital Signs Temp Pulse Resp BP Pulse Ox 98.6 F 88 18 104/58 92 10/30/18 08:00 10/30/18 08:00 10/30/18 08:00 10/30/18 08:00 10/30/18 08:00 Period Temp Pulse Resp BP Sys/Lee Pulse Ox Last 24 Hr 98.4 F-99.7 F 73-92 16-20 92-104/42-60 90-98 Intake and Output 10/29/18 10/30/18 10/30/18 21:59 05:59 13:59 Intake Total 1157 0 Output Total 475 Balance 682 0 Weight 209 lb 1.6 oz Intake & Output: Intake & Output 10/29/18 10/30/18 10/30/18 21:59 05:59 13:59 Intake Total 1157 0 Output Total 475 Balance 682 0 Weight 209 lb 1.6 oz Intake: Oral 840 0 Tube Feeding 287 GI Tube Flush 30 Output: Urine Catheter Amount 75 Void Amount 400 Other: Meal Dinner Percent of Meal Consumed 100% Urine Appearance Clear Mucous Threads Urine Color Dark Yellow Urine Odor Strong General appearance: no acute distress Exam: Alert oriented Fatigued nonlabored breathing No anxiety Nondistended abdomen Medical - PN: Obj Da - Labs CBC & Chem 7: 10/30/18 03:50 10/30/18 03:50 Labs: Abnormal Lab Results 10/30/18 10/30/18 10/29/18 03:50 03:50 03:49 WBC RBC 3.56 L Hgb 10.2 L Hct 31.8 L RDW 15.1 H Plt Count 133 L Seg Neutrophils % Band Neutrophils % Lymphocytes % RBC Morphology Abnorm A Polychromasia Few A Anisocytosis Few A Ovalocytes Few A BUN 39 H Creatinine 1.5 H Glucose 113 H 290 H Uric Acid 9.5 H 9.2 H Calcium 8.5 L GGT 77 H 88 H AST Lactate Dehydrogenase Triglycerides 10/29/18 10/28/18 10/28/18 03:49 04:07 04:07 WBC 4.4 L RBC 3.67 L 3.76 L Hgb 10.7 L 11.0 L Hct 32.6 L 33.4 L RDW 14.6 H 14.8 H Plt Count 108 L 104 L Seg Neutrophils % 82 H Band Neutrophils % 18 H Lymphocytes % 10 L RBC Morphology Polychromasia Anisocytosis Ovalocytes BUN Creatinine Glucose 113 H Uric Acid Calcium GGT 89 H AST 41 H Lactate Dehydrogenase 270 H Triglycerides 162 H Meds: Medications Acetaminophen (Tylenol) 650 mg PO Q6HP PRN PRN Reason: PAIN/FEVER > 101 Last Admin: 10/29/18 20:51 Dose: 650 mg Documented by: Hydrocodone Bitart/Acetaminophen ([place] 5/325mg) 1 tab PO Q4HP PRN PRN Reason: PAIN LEVEL 3-6 Hydrocodone Bitart/Acetaminophen ([place] 10/325mg) 1 tab PO QIDP PRN PRN Reason: Pain Albuterol Sulfate (Ventolin) 1 - 2 puff IH Q4HP PRN PRN Reason: Shortness Of Breath Albuterol Sulfate (Ventolin) 2.5 mg NEB TIDP PRN PRN Reason: Shortness Of Breath Last Admin: 10/30/18 05:01 Dose: 2.5 mg Documented by: Albuterol/Ipratropium (Duoneb) 3 ml NEB Q4HRT [facility] Last Admin: 10/30/18 07:44 Dose: 3 ml Documented by: Atorvastatin Calcium (Lipitor) 40 mg PO HS [facility] Last Admin: 10/29/18 20:52 Dose: 40 mg Documented by: Bisacodyl (Dulcolax) 10 mg PO HS [facility] Last Admin: 10/29/18 20:52 Dose: 10 mg Documented by: Bisoprolol Fumarate (Zebeta) 5 mg PO DAILY [facility] Last Admin: 10/30/18 08:31 Dose: 5 mg Documented by: Budesonide (Pulmicort) 2 puff INH BID [facility] Last Admin: 10/29/18 21:34 Dose: Not Given Documented by: Dextrose (Dextrose 50%) 0 ml IV UD PRN PRN Reason: Hypoglycemia Diagnostic Test (Pha) (Accu-Chek) 1 each FS ACHS [facility] Last Admin: 10/30/18 08:29 Dose: 1 each Documented by: Erythromycin (Ilotycin Ophth Oint) 1 ribbon OD [facility] Last Admin: 10/29/18 21:33 Dose: Not Given Documented by: Fluconazole (Diflucan) 200 mg PO DAILY [facility] Last Admin: 10/30/18 08:51 Dose: 200 mg Documented by: Furosemide (Lasix) 80 mg PO DAILY [facility] Gabapentin (Neurontin) 600 mg PO TID [facility] Last Admin: 10/29/18 20:51 Dose: 600 mg Documented by: Glucose (Insta-Glucose) 15 gm PO PRN PRN PRN Reason: Hypoglycemia Ceftriaxone Sodium 2 gm/ (Dextrose) 50 mls @ 100 mls/hr IV Q24H [facility] Last Admin: 10/30/18 08:52 Dose: 100 mls/hr Documented by: Magnesium Sulfate (Magnesium Sulfate) 2 gm in 50 mls @ 50 mls/hr IV UD PRN PRN Reason: Mag < or = 1.7 Acetaminophen (Ofirmev) 650 mg in 65 mls @ 130 mls/hr IV Q6HP PRN PRN Reason: PAIN/FEVER > 101 Last Admin: 10/28/18 11:31 Dose: 130 mls/hr Documented by: Insulin Human Lispro (Humalog) 0 unit SQ [facility]; Protocol Last Admin: 10/30/18 08:29 Dose: Not Given Documented by: Lactobacillus Rhamnosus (Culturelle) 1 cap PO DAILY [facility] Levothyroxine Sodium (Synthroid) 50 mcg PO [facility] Last Admin: 10/30/18 08:29 Dose: 50 mcg Documented by: Lisinopril (Zestril) 5 mg PO DAILY [facility] Last Admin: 10/29/18 08:10 Dose: 5 mg Documented by: Metformin HCl (Glucophage) 1,000 mg PO [facility] Last Admin: 10/30/18 08:32 Dose: 1,000 mg Documented by: Montelukast Sodium (Singular) 10 mg PO DAILY [facility] Last Admin: 10/29/18 08:10 Dose: 10 mg Documented by: Naloxone HCl (Narcan) 0.1 mg IV Q2MIN PRN PRN Reason: Opiate Reversal Oseltamivir Phosphate (Tamiflu) 75 mg PO BID [facility] Last Admin: 10/29/18 20:51 Dose: 75 mg Documented by: Pantoprazole Sodium (Protonix) 40 mg PO [facility] Last Admin: 10/30/18 08:29 Dose: 40 mg Documented by: Systane 0.3-0.4% Eye (Drops) 1 dose OP PRN PRN PRN Reason: Dry Eye(s) Polyethylene Glycol (Miralax) 17 gm PO DAILY [facility] Prednisone (Prednisone) 4.5 mg PO [facility] Last Admin: 10/30/18 08:31 Dose: 4.5 mg Documented by: Promethazine HCl (Phenergan) 12.5 mg IM Q6HP PRN PRN Reason: Nausea And Vomiting Medical - PN: A/P - Time Spent With Patient Total time spent is greater than 50% in coordination of care (as documented) at patient's floor/unit and/or counseling patient: 15 - 24 minutes (1) Influenza A Status: Acute Assessment and plan: * Acute viral syndrome with fever or weakness secondary to influenza A. Continue Tamiflu. * Generalized weakness secondary to acute viral syndrome-clinically improving. Continue PT OT * Complicated Escherichia coli UTI- pansensitive. Transition to oral antibiotics and discharge * History of COPD on 2 L home oxygen/bronchodilators * DM type II-continue metformin/CC diet * Chronic pain on hydrocodonne * Anxiety disorder on BuSpar * Hypothyroidism on thyroxine * GERD on PPI hypertension on bisoprolol * Full code * Prophylaxis heparin Plan * Transition to oral antibiotics and discharge * PT OT/nutrition support * Bronchodilators/oral steroid * Case management to arrange SNF transfer * Pre-existing medical condition management as above Current Visit: Yes Medical - PN: Qual - VTE Deep Vein Thrombosis/Pulmonary Embolism Present on Admission: No
[2018-10-30] MEDS ORDERED: VANCOMYCIN PER PHARMACY IV SCH (09:30)
--- NOTE | 2018-10-30 10:43 | Ultrasound Report ---
History: Acute renal failure FINDINGS: Right kidney measures 5.3 x 5.7 x 10.7 cm left measures 4.3 x 5.3 x 10.3 cm. There is thinning of the renal cortex bilaterally. The parenchyma is mildly echogenic. In the upper pole the right kidney there is a 1.7 x 1.7 cm cyst. The midportion left kidney there is a 1.3 x 1.7 cm cyst. There is no calculus or hydronephrosis. No solid mass is seen in either kidney. Doppler shows limited flow urine through both ureters into the bladder. The bladder contains 339 cc of urine. She had just gotten off of the toilet prior to the ultrasound study, which indicates that she has a very large post void residual. The bladder wall is 3.9 mm in thickness and no mass is seen within the bladder. 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 Diminished urine output bilaterally but without evidence of ureteral obstruction Large postvoid residual in the bladder Interpreted and Authenticated by: Pee Bender 10/30/18
[2018-10-30] MEDS: POLYETHYLENE GLYCOL 3350 17 GM PACKET PO SCH (10:54)
[2018-10-30] MEDS: MONTELUKAST 10 MG TABLET PO SCH (10:55)
[2018-10-30] MEDS: FUROSEMIDE 80 MG TABLET PO SCH (10:55)
[2018-10-30] MEDS: LACTOBACILLUS 1 CAPSULE PO SCH (10:55)
[2018-10-30] MEDS: OSELTAMIVIR PHOSPHATE 75 MG CAPSULE PO SCH ×2 (10:55→21:01)
[2018-10-30] MEDS: GABAPENTIN 300 MG CAPSULE PO SCH ×3 (10:55→21:00)
[2018-10-30] MEDS: VANCOMYCIN 1,500 MG in 0.9 % SODIUM CHLORIDE 500 ML IV SCH (12:17)
[2018-10-30] MEDS: 0.9 % SODIUM CHLORIDE 1,000 ML IV SCH (12:17)
[2018-10-30] MEDS: LISINOPRIL 5 MG TABLET PO SCH (12:21)
[2018-10-30] MEDS: BUDESONIDE 1 PUFF INHALER INH SCH ×2 (13:22→21:01)
[2018-10-30 18:07] LABS: Appearance,Urine CLEAR; Bacteria,Urine 0 /hpf (0); Bilirubin,Urine NEG (NEG); Color,Urine YELLOW; Glucose,Urine (UA) NEGATIVE (NEG); Leukocyte Esterase,Urine 25 /uL (NEG); Mucus,Urine FEW /hpf (0); Protein,Urine NEG (NEG); Specific Gravity,Urine 1.015 (1.000-1.035); Urine Blood NEG mg/dL (<0.03); Urine Hyaline Cast 1 /lpf (0-2); Urine RBC 3 /hpf (0-1); Urine Squamous Epithelial Cell 4 /hpf (0-4); Urine WBC 14 /hpf (0-4); Urobilinogen,Urine NEG (NEG)
[2018-10-30 19:13] LABS: Blood Urea Nitrogen 36 mg/dl (8-23)
[2018-10-30] MEDS: ERYTHROMYCIN OPHTH OINT 3.5GM TUBE OD SCH (21:00)
[2018-10-30] MEDS: ATORVASTATIN 20 MG TABLET PO SCH (21:00)
[2018-10-30] MEDS: BISACODYL 5 MG TABLET PO SCH (21:01)
[2018-10-31] MEDS: IPRATROPIUM/ALBUTEROL 3 ML AMPUL.NEB NEB SCH ×4 (03:19→19:43)
[2018-10-31 06:53] LABS: Mean Cell Volume 88.1 fL (80.0-100.0); Mean Corpuscular HGB Conc 32.9 g/dL (31.0-36.0); Platelet Count 116 K/mcL (140-440); Red Cell Distribution Width 15.2 % (11.5-14.5)
[2018-10-31] MEDS: LEVOTHYROXINE 50 MCG TABLET PO SCH (07:25)
[2018-10-31] MEDS: PANTOPRAZOLE 40 MG TABLET PO SCH (07:25)
[2018-10-31 07:34] LABS: ALT/SGPT 14 U/l (0-40); Albumin 3.3 gm/dL (3.2-5.2); Albumin/Globulin Ratio 1.1 (1.0-2.3); Alkaline Phosphatase 41 U/L (39-117); Bilirubin,Direct < 0.2 mg/dL (0.0-0.3); Blood Urea Nitrogen 29 mg/dl (8-23); Gamma Glutamyl Transpeptidase 70 U/L (5-36); Uric Acid 8.5 mg/dL (2.5-8.0)
[2018-10-31] MEDS ORDERED: FUROSEMIDE 20 MG/2 ML VIAL IV ONE (07:37)
--- NOTE | 2018-10-31 07:41 | Internal Med Progress Note ---
Medical - PN: Subj Patient information: Note initiated : 10/31/18 at 7:39 am Service Date, if different from initiated Date: [] Patient: Anne Rosado a 78 y/o F admitted on 10/28/18 for fall, cough, fever. Chief Complaint: [] Interval history: Ms. Rosado is a 78 year old F was fairly independent at baseline and presents to the ER with progressive weakness over the last 3 days to the point patient could barely function. She endorses to fever, loss of appetite and due to profound weakness fell last evening unable to get back up on her feet. In desperation she called 911 and was brought into the ER for evaluation. Initial workup was consistent with influenza A, pyuria on UA patient was started on Tamiflu/crystalloids. Hospitalist service was requested for admission. At the time of evaluation patient is extremely lethargic. Unable to answer any questions or provide a meaningful history. She however denies headache, diarrhea, dysuria but endorses to weakness fatigue and loss of appetite. 3/3-patient very lethargic and fatigued and short of breath. Continuing bronchodilators/treatments. Start NG tube feeding for nutrition due to high risk aspiration and weakness. Foleys draining clear urine. MAXIMUM TEMPERATURE 102. Gram-negative bacilli in urine. 3/4-patient doing remarkably better. Ongoing tube feeds, speech ST eval today. Afebrile. More lucid and alert and sitting on chair. Able to converse. Continue physical therapy. Continue supportive treatment. May discontinue tube feeds if able to swallow 3/5-patient more alert and awake, NG discontinued, tolerating diet, to person assist physical therapy. Anticipate SNF transfer. Continue Tamiflu. Continue supportive management 3/6- bilateral chest infiltrates on imaging. On broad antibiotic coverage. De- escalate to include gram negatives/nosocomial pathogen. Continue Zosyn and vancomycin. Continue nutrition and physical therapy. Echocardiogram to rule out underlying CHF. Continue pulmonary toilet/aspiration precautions. On diet per ST recommendations - Constitutional Vitals: Vital Signs Temp Pulse Resp BP Pulse Ox 97.7 F 81 20 131/82 93 10/31/18 06:57 10/31/18 06:57 10/31/18 07:23 10/31/18 06:57 10/31/18 06:57 Period Temp Pulse Resp BP Sys/Ele Pulse Ox Last 24 Hr 97.7 F-98.6 F 70-88 16-22 98-131/46-82 91-96 Intake and Output 10/30/18 10/31/18 10/31/18 21:59 05:59 13:59 Intake Total 1600 Output Total 1700 325 Balance -100 -325 Weight 211 lb 4.8 oz Intake & Output: Intake & Output 10/30/18 10/31/18 10/31/18 21:59 05:59 13:59 Intake Total 1600 Output Total 1700 325 Balance -100 -325 Weight 211 lb 4.8 oz Intake: Oral 1600 Output: Urine Catheter Amount 850 Straight 850 Void Amount 850 325 Other: Meal Lunch Percent of Meal Consumed 25% Urine Appearance Straight Clear Urine Color Straight Dark Yellow General appearance: no acute distress Exam: Bilateral crackles Labored breathing Diminished breath sounds Anxious but alert and oriented No lymphedema Medical - PN: Obj Da - Labs CBC & Chem 7: 10/31/18 04:29 10/31/18 04:29 Labs: Abnormal Lab Results 10/31/18 10/31/18 10/30/18 04:29 04:29 Unknown WBC 4.3 L RBC 3.30 L Hgb 9.6 L Hct 29.1 L RDW 15.2 H Plt Count 116 L Seg Neutrophils % Lymphocytes % RBC Morphology Polychromasia Anisocytosis Ovalocytes Chloride BUN 29 H Creatinine Glucose 115 H Uric Acid 8.5 H Calcium 8.5 L GGT 70 H Ur Leukocyte Esterase 25 A Urine RBC 3 H Urine WBC 14 H 10/30/18 10/30/18 10/30/18 18:26 03:50 03:50 WBC RBC 3.56 L Hgb 10.2 L Hct 31.8 L RDW 15.1 H Plt Count 133 L Seg Neutrophils % Lymphocytes % RBC Morphology Abnorm A Polychromasia Few A Anisocytosis Few A Ovalocytes Few A Chloride 95 L BUN 36 H 39 H Creatinine 1.5 H Glucose 271 H 113 H Uric Acid 9.5 H Calcium 8.5 L 8.5 L GGT 77 H Ur Leukocyte Esterase Urine RBC Urine WBC 10/29/18 10/29/18 03:49 03:49 WBC 4.4 L RBC 3.67 L Hgb 10.7 L Hct 32.6 L RDW 14.6 H Plt Count 108 L Seg Neutrophils % 82 H Lymphocytes % 10 L RBC Morphology Polychromasia Anisocytosis Ovalocytes Chloride BUN Creatinine Glucose 290 H Uric Acid 9.2 H Calcium GGT 88 H Ur Leukocyte Esterase Urine RBC Urine WBC Meds: Medications Acetaminophen (Tylenol) 650 mg PO Q6HP PRN PRN Reason: PAIN/FEVER > 101 Last Admin: 10/29/18 20:51 Dose: 650 mg Documented by: Hydrocodone Bitart/Acetaminophen ([place] 5/325mg) 1 tab PO Q4HP PRN PRN Reason: PAIN LEVEL 3-6 Hydrocodone Bitart/Acetaminophen ([place] 10/325mg) 1 tab PO QIDP PRN PRN Reason: Pain Albuterol Sulfate (Ventolin) 1 - 2 puff IH Q4HP PRN PRN Reason: Shortness Of Breath Albuterol Sulfate (Ventolin) 2.5 mg NEB TIDP PRN PRN Reason: Shortness Of Breath Last Admin: 10/30/18 05:01 Dose: 2.5 mg Documented by: Albuterol/Ipratropium (Duoneb) 3 ml NEB Q4HRT [facility] Last Admin: 10/31/18 07:22 Dose: Not Given Documented by: Atorvastatin Calcium (Lipitor) 40 mg PO [facility] Last Admin: 10/30/18 21:00 Dose: 40 mg Documented by: Bisacodyl (Dulcolax) 10 mg PO HS [facility] Last Admin: 10/30/18 21:01 Dose: 10 mg Documented by: Bisoprolol Fumarate (Zebeta) 5 mg PO DAILY [facility] Last Admin: 10/30/18 08:31 Dose: 5 mg Documented by: Budesonide (Pulmicort) 2 puff INH BID [facility] Last Admin: 10/30/18 21:01 Dose: Not Given Documented by: Dextrose (Dextrose 50%) 0 ml IV UD PRN PRN Reason: Hypoglycemia Diagnostic Test (Pha) (Accu-Chek) 1 each FS ACHS [facility] Last Admin: 10/31/18 07:30 Dose: 1 each Documented by: Erythromycin (Ilotycin Ophth Oint) 1 ribbon OD [facility] Last Admin: 10/30/18 21:00 Dose: Not Given Documented by: Fluconazole (Diflucan) 200 mg PO DAILY [facility] Last Admin: 10/30/18 08:51 Dose: 200 mg Documented by: Furosemide (Lasix) 80 mg PO DAILY [facility] Last Admin: 10/30/18 10:55 Dose: 80 mg Documented by: Furosemide (Lasix) 20 mg IV ONCE ONE Stop: 10/31/18 07:38 Gabapentin (Neurontin) 600 mg PO TID [facility] Last Admin: 10/30/18 21:00 Dose: 600 mg Documented by: Glucose (Insta-Glucose) 15 gm PO PRN PRN PRN Reason: Hypoglycemia Ceftriaxone Sodium 2 gm/ (Dextrose) 50 mls @ 100 mls/hr IV Q24H [facility] Last Admin: 10/30/18 08:52 Dose: 100 mls/hr Documented by: Magnesium Sulfate (Magnesium Sulfate) 2 gm in 50 mls @ 50 mls/hr IV UD PRN PRN Reason: Mag < or = 1.7 Acetaminophen (Ofirmev) 650 mg in 65 mls @ 130 mls/hr IV Q6HP PRN PRN Reason: PAIN/FEVER > 101 Last Admin: 10/28/18 11:31 Dose: 130 mls/hr Documented by: Vancomycin HCl 1,500 mg/ (Sodium Chloride) 500 mls @ 333.3 mls/hr IV Q24H [facility] Last Admin: 10/30/18 12:17 Dose: 333.3 mls/hr Documented by: Insulin Human Lispro (Humalog) 0 unit SQ ACHS [facility]; Protocol Last Admin: 10/30/18 20:59 Dose: 4 units Documented by: Lactobacillus Rhamnosus (Culturelle) 1 cap PO DAILY [facility] Last Admin: 10/30/18 10:55 Dose: 1 cap Documented by: Levothyroxine Sodium (Synthroid) 50 mcg PO [facility] Last Admin: 10/31/18 07:25 Dose: 50 mcg Documented by: Lisinopril (Zestril) 5 mg PO DAILY [facility] Last Admin: 10/30/18 12:21 Dose: Not Given Documented by: Metformin HCl (Glucophage) 1,000 mg PO [facility] Last Admin: 10/30/18 08:32 Dose: 1,000 mg Documented by: Montelukast Sodium (Singular) 10 mg PO DAILY [facility] Last Admin: 10/30/18 10:55 Dose: 10 mg Documented by: Naloxone HCl (Narcan) 0.1 mg IV Q2MIN PRN PRN Reason: Opiate Reversal Oseltamivir Phosphate (Tamiflu) 75 mg PO BID [facility] Last Admin: 10/30/18 21:01 Dose: 75 mg Documented by: Pantoprazole Sodium (Protonix) 40 [facility] PO [facility] Last Admin: 10/31/18 07:25 Dose: 40 mg Documented by: Systane 0.3-0.4% Eye (Drops) 1 dose OP PRN PRN PRN Reason: Dry Eye(s) Polyethylene Glycol (Miralax) 17 gm PO DAILY [facility] Last Admin: 10/30/18 10:54 Dose: 17 gm Documented by: Prednisone (Prednisone) 4.5 mg PO [facility] Last Admin: 10/30/18 08:31 Dose: 4.5 mg Documented by: Promethazine HCl (Phenergan) 12.5 mg IM Q6HP PRN PRN Reason: Nausea And Vomiting Vancomycin HCl (Vancomycin Per Pharmacy) 1 order IV [facility] Medical - PN: A/P - Time Spent With Patient Total time spent is greater than 50% in coordination of care (as documented) at patient's floor/unit and/or counseling patient: 25 - 35 minutes (1) Influenza A Status: Acute Assessment and plan: * Bilateral pneumonia nosocomial versus aspiration versus post-influenza pneumonia. Continue empiric coverage for staph/enteric pathogen. Continue ST eval/aspiration precautions. Await echocardiogram to rule out underlying cardiac etiology * Hypoxic respiratory failure secondary to bilateral pneumonia-continue several oxygen * Influenza A with bilateral pneumonia continue Tamiflu. * Generalized weakness secondary to acute viral syndrome-clinically improving. Continue PT OT * Complicated Escherichia coli UTI- pansensitive. On antibiotic coverage * Acute kidney injury clinically improving. Creatinine down from 1.5-1. Negative renal ultrasound * History of COPD on 2 L home oxygen/bronchodilators * DM type II-continue metformin/CC diet * Chronic pain on hydrocodonne * Anxiety disorder on BuSpar * Hypothyroidism on thyroxine * GERD on PPI hypertension on bisoprolol * Full code * Prophylaxis heparin Plan * Broad antibiotic to include nosocomial/staph coverage * PT OT/nutrition support * Bronchodilators/oral steroid * Continue diuresis * Case management to arrange SNF transfer * Pre-existing medical condition management as above Current Visit: Yes Medical - PN: Qual - VTE Deep Vein Thrombosis/Pulmonary Embolism Present on Admission: No
[2018-10-31] MEDS: BUDESONIDE 1 PUFF INHALER INH SCH ×2 (07:52→20:14)
[2018-10-31 08:44] LABS: Band Neutrophils % 3 % (0-10); Eosinophils % (Manual) 1 % (0-7); Lymphocytes % 32 % (15-49); Monocytes % (Manual) 8 % (1-12); Platelet Estimate DECREASED (NORMAL); RBC Morphology NORMAL (NORMAL); Segmented Neutrophils % 56 % (38-78)
[2018-10-31] MEDS: FLUCONAZOLE 100 MG TABLET PO SCH (09:32)
[2018-10-31] MEDS: LACTOBACILLUS 1 CAPSULE PO SCH (09:33)
[2018-10-31] MEDS: predniSONE 1 MG TABLET PO SCH (09:34)
[2018-10-31] MEDS: GABAPENTIN 300 MG CAPSULE PO SCH ×3 (09:35→20:14)
[2018-10-31] MEDS: MONTELUKAST 10 MG TABLET PO SCH (09:36)
[2018-10-31] MEDS: FUROSEMIDE 80 MG TABLET PO SCH (09:36)
[2018-10-31] MEDS: BISOPROLOL 5 MG TABLET PO SCH (09:36)
[2018-10-31] MEDS: OSELTAMIVIR PHOSPHATE 75 MG CAPSULE PO SCH ×2 (09:37→20:14)
[2018-10-31] MEDS: metFORMIN 500 MG TABLET PO SCH (09:37)
[2018-10-31] MEDS: INSULIN LISPRO 1 UNIT/0.01 ML UNIT SQ SCH ×4 (09:38→20:13)
[2018-10-31] MEDS: POLYETHYLENE GLYCOL 3350 17 GM PACKET PO SCH (09:44)
[2018-10-31] MEDS: PIPERACILLIN SODIUM/TAZOBACTAM 3.375 GM in DEXTROSE 5% IN WATER 50 ML IV SCH ×3 (09:44→20:13)
[2018-10-31] MEDS: LISINOPRIL 5 MG TABLET PO SCH (09:46)
[2018-10-31] MEDS: VANCOMYCIN 1,500 MG in 0.9 % SODIUM CHLORIDE 500 ML IV SCH (10:20)
[2018-10-31] MEDS: ERYTHROMYCIN OPHTH OINT 3.5GM TUBE OD SCH (20:14)
[2018-10-31] MEDS: ATORVASTATIN 20 MG TABLET PO SCH (20:14)
[2018-10-31] MEDS: BISACODYL 5 MG TABLET PO SCH (20:14)
[2018-10-31] MEDS: 0.9 % SODIUM CHLORIDE 1,000 ML IV SCH (20:50)
[2018-11-01] MEDS: PIPERACILLIN SODIUM/TAZOBACTAM 3.375 GM in DEXTROSE 5% IN WATER 50 ML IV SCH ×4 (00:39→17:53)
[2018-11-01] MEDS: IPRATROPIUM/ALBUTEROL 3 ML AMPUL.NEB NEB SCH ×4 (00:42→18:35)
[2018-11-01 06:42] LABS: Basophils # (Auto) 0 K/mcL (0.0-0.3); Basophils % (Auto) 0.3 % (0.0-2.0); Eosinophils # (Auto) 0.1 K/mcL (0.0-0.7); Eosinophils % (Auto) 1.9 % (0.0-7.0); Granulocytes % (Auto) 52.1 % (38.0-78.0); Lymphocytes # (Auto) 1.3 K/mcL (1.5-4.8); Lymphocytes % (Auto) 32.7 % (15.5-49.0); Mean Corpuscular HGB Conc 32.5 g/dL (31.0-36.0); Monocytes # (Auto) 0.5 K/mcL (0.1-0.9); Platelet Count 133 K/mcL (140-440); RBC 3.52 M/mcL (4.00-5.20); Red Cell Distribution Width 14.7 % (11.5-14.5)
[2018-11-01 06:52] LABS: ALT/SGPT 15 U/l (0-40); Albumin 3.8 gm/dL (3.2-5.2); Albumin/Globulin Ratio 1.3 (1.0-2.3); Alkaline Phosphatase 44 U/L (39-117); Bilirubin,Direct < 0.2 mg/dL (0.0-0.3); Blood Urea Nitrogen 25 mg/dl (8-23); Gamma Glutamyl Transpeptidase 67 U/L (5-36); Uric Acid 6.5 mg/dL (2.5-8.0)
[2018-11-01] MEDS: predniSONE 1 MG TABLET PO SCH (07:57)
[2018-11-01] MEDS: metFORMIN 500 MG TABLET PO SCH (07:57)
[2018-11-01] MEDS: PANTOPRAZOLE 40 MG TABLET PO SCH (07:57)
[2018-11-01] MEDS: LEVOTHYROXINE 50 MCG TABLET PO SCH (07:57)
[2018-11-01] MEDS: INSULIN LISPRO 1 UNIT/0.01 ML UNIT SQ SCH ×4 (08:12→22:17)
[2018-11-01] MEDS: POLYETHYLENE GLYCOL 3350 17 GM PACKET PO SCH (10:25)
[2018-11-01] MEDS: FLUCONAZOLE 100 MG TABLET PO SCH (10:25)
[2018-11-01] MEDS: MONTELUKAST 10 MG TABLET PO SCH (10:26)
[2018-11-01] MEDS: LACTOBACILLUS 1 CAPSULE PO SCH (10:26)
[2018-11-01] MEDS: OSELTAMIVIR PHOSPHATE 75 MG CAPSULE PO SCH ×2 (10:26→22:16)
[2018-11-01] MEDS: GABAPENTIN 300 MG CAPSULE PO SCH ×3 (10:26→22:15)
[2018-11-01] MEDS: LISINOPRIL 5 MG TABLET PO SCH (10:26)
[2018-11-01] MEDS: FUROSEMIDE 80 MG TABLET PO SCH (10:27)
[2018-11-01] MEDS: BISOPROLOL 5 MG TABLET PO SCH (10:27)
[2018-11-01] MEDS: BUDESONIDE 1 PUFF INHALER INH SCH ×2 (10:27→21:48)
[2018-11-01] MEDS: VANCOMYCIN 1,500 MG in 0.9 % SODIUM CHLORIDE 500 ML IV SCH (10:35)
--- NOTE | 2018-11-01 10:56 | XRay Report ---
HISTORY: Pneumonia, fever and cough FINDINGS: Right diaphragm is moderately elevated. There is a thick horizontally oriented band of discoid atelectasis in the right lower lobe adjacent to the elevated diaphragm. There is improving aeration in both lower lobes since 10/30/18. The left lower lobe infiltrate has nearly but not completely resolved. The upper lung thibodeaux are clear. The heart size is normal. No pleural effusion is detected. IMPRESSION: Improving bibasilar pneumonia/atelectasis Interpreted and Authenticated by: Pee Bender 11/01/18
--- NOTE | 2018-11-01 15:42 | Internal Med Progress Note ---
Medical - PN: Subj Patient information: Note initiated : 11/01/18 at 3:38 pm Service Date, if different from initiated Date: [] Patient: Anne Rosado a 78 y/o F admitted on 10/28/18 for fall, cough, fever. Chief Complaint: [] Interval history: Ms. Rosado is a 78 year old F was fairly independent at baseline and presents to the ER with progressive weakness over the last 3 days to the point patient could barely function. She endorses to fever, loss of appetite and due to profound weakness fell last evening unable to get back up on her feet. In desperation she called 911 and was brought into the ER for evaluation. Initial workup was consistent with influenza A, pyuria on UA patient was started on Tamiflu/crystalloids. Hospitalist service was requested for admission. At the time of evaluation patient is extremely lethargic. Unable to answer any questions or provide a meaningful history. She however denies headache, diarrhea, dysuria but endorses to weakness fatigue and loss of appetite. 3/-patient very lethargic and fatigued and short of breath. Continuing bronchodilators/treatments. Start NG tube feeding for nutrition due to high risk aspiration and weakness. Foleys draining clear urine. MAXIMUM TEMPERATURE 102. Gram-negative bacilli in urine. 3/-patient doing remarkably better. Ongoing tube feeds, speech ST eval today. Afebrile. More lucid and alert and sitting on chair. Able to converse. Continue physical therapy. Continue supportive treatment. May discontinue tube feeds if able to swallow /5-patient more alert and awake, NG discontinued, tolerating diet, to person assist physical therapy. Anticipate SNF transfer. Continue Tamiflu. Continue supportive management 10/31- bilateral chest infiltrates on imaging. On broad antibiotic coverage. De- escalate to include gram negatives/nosocomial pathogen. Continue Zosyn and vancomycin. Continue nutrition and physical therapy. Echocardiogram to rule out underlying CHF. Continue pulmonary toilet/aspiration precautions. On diet per ST recommendations 11/01 Patient seen and examined, sitting comfortably in chair, no complaints no acute concerns. She notes that she does not feel hungry and has dry mouth. Chest x-ray done today shows improved infiltrates The patient is on baseline oxygen needs 2 L Echocardiogram shows moderate pulmonary hypertension, normal left ventricular function, atrial septal defect secundum Pertinent ROS: Denies headache, dizziness Denies chest pain, palpitations Denies cough or shortness of breath Denies abdominal pain, nausea or vomiting. - Constitutional Vitals: Vital Signs Temp Pulse Resp BP Pulse Ox 98.3 F 72 16 145/65 94 11/01/18 11:17 11/01/18 13:42 11/01/18 13:42 11/01/18 11:17 11/01/18 11:17 Period Temp Pulse Resp BP Sys/Lee Pulse Ox Last 24 Hr 97.1 F-98.5 F 67-85 14-20 106-145/50-78 91-96 Intake and Output 11/01/18 11/01/18 11/01/18 05:59 13:59 21:59 Intake Total 150 50 Output Total 701 425 Balance -551 -375 Intake & Output: Intake & Output 11/01/18 11/01/18 11/01/18 05:59 13:59 21:59 Intake Total 150 50 Output Total 701 425 Balance -551 -375 Intake: IV 50 50 Zosyn 3.375 gm In Dextrose 5% 50 50 in Water 50 ml @ 100 mls/hr IV Q6H [facility] Rx#:[id number] Oral 100 Output: Void Amount 700 425 # of times incontinent of urine 1 Exam: Constitutional; Afebrile, cooperative, alert, not in distress. Respiratory system: Air Entry equal on both sides, bibasilar crackles, No wheezing, no rhonchi. CVS- Rate rhythm regular, S1,S2 heard, no gallop, no rub. 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 Medical - PN: Obj Da - Labs CBC & Chem 7: 11/01/18 03:55 11/01/18 03:55 Labs: Abnormal Lab Results 11/01/18 11/01/18 10/31/18 03:55 03:55 04:29 WBC 4.1 L RBC 3.52 L Hgb 10.2 L Hct 31.3 L RDW 14.7 H Plt Count 133 L [place] % (Auto) 13.0 H Lymph # (Auto) 1.3 L RBC Morphology Polychromasia Anisocytosis Ovalocytes Chloride Carbon Dioxide 32 H BUN 25 H 29 H Creatinine Glucose 117 H 115 H Uric Acid 8.5 H Calcium 8.5 L GGT 67 H 70 H Triglycerides 196 H Ur Leukocyte Esterase Urine RBC Urine WBC 10/31/18 10/30/18 10/30/18 04:29 Unknown 18:26 WBC 4.3 L RBC 3.30 L Hgb 9.6 L Hct 29.1 L RDW 15.2 H Plt Count 116 L [place] % (Auto) Lymph # (Auto) RBC Morphology Polychromasia Anisocytosis Ovalocytes Chloride 95 L Carbon Dioxide BUN 36 H Creatinine Glucose 271 H Uric Acid Calcium 8.5 L GGT Triglycerides Ur Leukocyte Esterase 25 A Urine RBC 3 H Urine WBC 14 H 10/30/18 10/30/18 03:50 03:50 WBC RBC 3.56 L Hgb 10.2 L Hct 31.8 L RDW 15.1 H Plt Count 133 L [place] % (Auto) Lymph # (Auto) RBC Morphology Abnorm A Polychromasia Few A Anisocytosis Few A Ovalocytes Few A Chloride Carbon Dioxide BUN 39 H Creatinine 1.5 H Glucose 113 H Uric Acid 9.5 H Calcium 8.5 L GGT 77 H Triglycerides Ur Leukocyte Esterase Urine RBC Urine WBC Meds: Medications Acetaminophen (Tylenol) 650 mg PO Q6HP PRN PRN Reason: PAIN/FEVER > 101 Last Admin: 10/29/18 20:51 Dose: 650 mg Documented by: Hydrocodone Bitart/Acetaminophen ([place] 5/325mg) 1 tab PO Q4HP PRN PRN Reason: PAIN LEVEL 3-6 Last Admin: 10/31/18 09:44 Dose: 1 tab Documented by: Hydrocodone Bitart/Acetaminophen ([place] 10/325mg) 1 tab PO QIDP PRN PRN Reason: Pain Albuterol Sulfate (Ventolin) 1 - 2 puff IH Q4HP PRN PRN Reason: Shortness Of Breath Albuterol Sulfate (Ventolin) 2.5 mg NEB TIDP PRN PRN Reason: Shortness Of Breath Last Admin: 10/30/18 05:01 Dose: 2.5 mg Documented by: Albuterol/Ipratropium (Duoneb) 3 ml NEB Q6HRT [facility] Last Admin: 11/01/18 13:10 Dose: 3 ml Documented by: Atorvastatin Calcium (Lipitor) 40 mg PO HS [facility] Last Admin: 10/31/18 20:14 Dose: 40 mg Documented by: Bisacodyl (Dulcolax) 10 mg PO HS [facility] Last Admin: 10/31/18 20:14 Dose: 10 mg Documented by: Bisoprolol Fumarate (Zebeta) 5 mg PO DAILY [facility] Last Admin: 11/01/18 10:27 Dose: 5 mg Documented by: Budesonide (Pulmicort) 2 puff INH BID [facility] Last Admin: 11/01/18 10:27 Dose: Not Given Documented by: Dextrose (Dextrose 50%) 0 ml IV UD PRN PRN Reason: Hypoglycemia Diagnostic Test (Pha) (Accu-Chek) 1 each FS [facility] Last Admin: 11/01/18 12:59 Dose: 1 each Documented by: Erythromycin (Ilotycin Ophth Oint) 1 ribbon OD [facility] Last Admin: 10/31/18 20:14 Dose: Not Given Documented by: Fluconazole (Diflucan) 200 mg PO DAILY [facility] Last Admin: 11/01/18 10:25 Dose: 200 mg Documented by: Furosemide (Lasix) 80 mg PO DAILY [facility] Last Admin: 11/01/18 10:27 Dose: 80 mg Documented by: Gabapentin (Neurontin) 600 mg PO TID [facility] Last Admin: 11/01/18 10:26 Dose: 600 mg Documented by: Glucose (Insta-Glucose) 15 gm PO PRN PRN PRN Reason: Hypoglycemia Magnesium Sulfate (Magnesium Sulfate) 2 gm in 50 mls @ 50 mls/hr IV UD PRN PRN Reason: Mag < or = 1.7 Acetaminophen (Ofirmev) 650 mg in 65 mls @ 130 mls/hr IV Q6HP PRN PRN Reason: PAIN/FEVER > 101 Last Admin: 10/28/18 11:31 Dose: 130 mls/hr Documented by: Vancomycin HCl 1,500 mg/ (Sodium Chloride) 500 mls @ 333.3 mls/hr IV Q24H [facility] Last Admin: 11/01/18 10:35 Dose: 333.3 mls/hr Documented by: Piperacillin Sod/Tazobactam (Sod 3.375 gm/ Dextrose) 50 mls @ 100 mls/hr IV Q6H [facility] Last Admin: 11/01/18 13:00 Dose: 100 mls/hr Documented by: Insulin Human Lispro (Humalog) 0 unit SQ [facility]; Protocol Last Admin: 11/01/18 15:08 Dose: Not Given Documented by: Lactobacillus Rhamnosus (Culturelle) 1 cap PO DAILY [facility] Last Admin: 11/01/18 10:26 Dose: 1 cap Documented by: Levothyroxine Sodium (Synthroid) 50 mcg PO [facility] Last Admin: 11/01/18 07:57 Dose: 50 mcg Documented by: Lisinopril (Zestril) 5 mg PO DAILY [facility] Last Admin: 11/01/18 10:26 Dose: 5 mg Documented by: Metformin HCl (Glucophage) 1,000 mg PO [facility] Last Admin: 11/01/18 07:57 Dose: 1,000 mg Documented by: Montelukast Sodium (Singular) 10 mg PO DAILY [facility] Last Admin: 11/01/18 10:26 Dose: 10 mg Documented by: Naloxone HCl (Narcan) 0.1 mg IV Q2MIN PRN PRN Reason: Opiate Reversal Oseltamivir Phosphate (Tamiflu) 75 mg PO BID [facility] Last Admin: 11/01/18 10:26 Dose: 75 mg Documented by: Pantoprazole Sodium (Protonix) 40 mg PO [facility] Last Admin: 11/01/18 07:57 Dose: 40 mg Documented by: Systane 0.3-0.4% Eye (Drops) 1 dose OP PRN PRN PRN Reason: Dry Eye(s) Polyethylene Glycol (Miralax) 17 gm PO DAILY [facility] Last Admin: 11/01/18 10:25 Dose: 17 gm Documented by: Prednisone (Prednisone) 4.5 mg PO [facility] Last Admin: 11/01/18 07:57 Dose: 4.5 mg Documented by: Promethazine HCl (Phenergan) 12.5 mg IM Q6HP PRN PRN Reason: Nausea And Vomiting Vancomycin HCl (Vancomycin Per Pharmacy) 1 order IV [place] Medical - PN: A/P - Time Spent With Patient Total time spent is greater than 50% in coordination of care (as documented) at patient's floor/unit and/or counseling patient: - Narrative A/P Narrative: * Bilateral pneumonia nosocomial versus aspiration versus post-influenza pneumonia. Continue empiric coverage for staph/enteric pathogen. Continue ST eval/aspiration precautions. * Atrial septum defect, * Pulmonary hypertension, moderate * Hypoxic respiratory failure secondary to bilateral pneumonia-continue several oxygen * Influenza A with bilateral pneumonia continue Tamiflu. * Generalized weakness secondary to acute viral syndrome-clinically improving. Continue PT OT * Complicated Escherichia coli UTI- pansensitive. On antibiotic coverage * Acute kidney injury clinically improving. Creatinine down from 1.5-1. Negative renal ultrasound * History of COPD on 2 L home oxygen/bronchodilators * DM type II-continue metformin/CC diet * Chronic pain on hydrocodonne * Anxiety disorder on BuSpar * Hypothyroidism on thyroxine * GERD on PPI hypertension on bisoprolol * Full code * Prophylaxis heparin Plan * Broad antibiotic to include nosocomial/staph coverage * PT OT/nutrition support * Bronchodilators/oral steroid * Continue diuresis, Outpatient cardiology follow up. * Case management to arrange SNF transfer * Pre-existing medical condition management as above * anticpate d/c to SNF in AM Medical - PN: Qual - VTE Deep Vein Thrombosis/Pulmonary Embolism Present on Admission: No
[2018-11-01] MEDS: ERYTHROMYCIN OPHTH OINT 3.5GM TUBE OD SCH (21:48)
[2018-11-01] MEDS: ATORVASTATIN 20 MG TABLET PO SCH (22:16)
[2018-11-01] MEDS: BISACODYL 5 MG TABLET PO SCH (22:16)
[2018-11-02] MEDS: PIPERACILLIN SODIUM/TAZOBACTAM 3.375 GM in DEXTROSE 5% IN WATER 50 ML IV SCH ×3 (00:47→12:49)
[2018-11-02] MEDS: IPRATROPIUM/ALBUTEROL 3 ML AMPUL.NEB NEB SCH ×2 (01:43→08:25)
[2018-11-02 07:26] LABS: Basophils # (Auto) 0 K/mcL (0.0-0.3); Basophils % (Auto) 0.5 % (0.0-2.0); Eosinophils # (Auto) 0.2 K/mcL (0.0-0.7); Eosinophils % (Auto) 2.7 % (0.0-7.0); Granulocytes % (Auto) 54.6 % (38.0-78.0); Lymphocytes # (Auto) 1.8 K/mcL (1.5-4.8); Lymphocytes % (Auto) 31.7 % (15.5-49.0); Mean Cell Volume 88.1 fL (80.0-100.0); Monocytes # (Auto) 0.6 K/mcL (0.1-0.9); Monocytes % (Auto) 10.5 % (1.0-12.0); Platelet Count 175 K/mcL (140-440); RBC 3.73 M/mcL (4.00-5.20); Red Cell Distribution Width 14.9 % (11.5-14.5)
[2018-11-02] MEDS: INSULIN LISPRO 1 UNIT/0.01 ML UNIT SQ SCH ×2 (07:27→12:49)
[2018-11-02] MEDS: predniSONE 1 MG TABLET PO SCH (07:32)
[2018-11-02] MEDS: metFORMIN 500 MG TABLET PO SCH (07:33)
[2018-11-02] MEDS: LEVOTHYROXINE 50 MCG TABLET PO SCH (07:33)
[2018-11-02] MEDS: PANTOPRAZOLE 40 MG TABLET PO SCH (07:33)
[2018-11-02 07:47] LABS: ALT/SGPT 15 U/l (0-40); Albumin 3.8 gm/dL (3.2-5.2); Albumin/Globulin Ratio 1.2 (1.0-2.3); Alkaline Phosphatase 47 U/L (39-117); Bilirubin,Direct < 0.2 mg/dL (0.0-0.3); Blood Urea Nitrogen 28 mg/dl (8-23); Gamma Glutamyl Transpeptidase 68 U/L (5-36); Uric Acid 6.2 mg/dL (2.5-8.0)
[2018-11-02] MEDS: OSELTAMIVIR PHOSPHATE 75 MG CAPSULE PO SCH (10:28)
[2018-11-02] MEDS: FLUCONAZOLE 100 MG TABLET PO SCH (10:28)
[2018-11-02] MEDS: GABAPENTIN 300 MG CAPSULE PO SCH (10:28)
[2018-11-02] MEDS: LISINOPRIL 5 MG TABLET PO SCH (10:28)
[2018-11-02] MEDS: LACTOBACILLUS 1 CAPSULE PO SCH (10:28)
[2018-11-02] MEDS: MONTELUKAST 10 MG TABLET PO SCH (10:28)
[2018-11-02] MEDS: VANCOMYCIN 1,500 MG in 0.9 % SODIUM CHLORIDE 500 ML IV SCH (10:29)
[2018-11-02] MEDS: FUROSEMIDE 80 MG TABLET PO SCH (10:29)
[2018-11-02] MEDS: POLYETHYLENE GLYCOL 3350 17 GM PACKET PO SCH (10:29)
[2018-11-02] MEDS: BISOPROLOL 5 MG TABLET PO SCH (10:29)
[2018-11-02] MEDS: BUDESONIDE 1 PUFF INHALER INH SCH (11:18)
--- NOTE | 2018-11-02 11:38 | Discharge Summary ---
Medical - DS: Prov Patient information: Note initiated : 11/02/18 at 11:29 am Service Date, if different from initiated Date: [] Patient: Anne Rosado 78 y/o F admitted on 10/28/18 for fall, cough, fever. Chief Complaint: [] Date of admission: 10/28/18 09:49 Discharge date: 11/02/18 Primary care physician: Hans Arias Consults: 10/27/18 Consult to Physician [CONS] Stat Comment: Consulting Provider: Nimesh Yi Reason For Exam: Physician to Consult 10/29/18 07:56 Consult to Physician [CONS] Routine Comment: Consulting Provider: Jai Lugo Reason For Exam: Physician to Consult Discharging clinician: Ramses Sosa Medical - DS: Meds - Discharge Medications Prescriptions: HYDROcodone/APAP 10/325MG [[place] 10-325Mg] 1 tab PO QIDP PRN #30 tab PRN Reason: Pain Levofloxacin [Levaquin] 750 mg PO DAILY #5 tab metroNIDAZOLE [Metronidazole] 500 mg PO TID #15 tab Oseltamivir Phosphate [Tamiflu] 75 mg PO BID #4 cap Active and Home Medications: Home Medications Albuterol Sulfate [Proair Hfa] 1 - 2 puff IH Q4HP PRN 06/01/15 [History Confirmed 10/29/18 Last Taken 06/04/15] Bisacodyl [Dulcolax] 10 mg PO HS 06/01/15 [History Confirmed 10/29/18 Last Taken 06/04/15] Bisoprolol Fumarate [Zebeta] 5 mg PO DAILY 06/01/15 [History Confirmed 10/28/18 Last Taken 06/04/15] Budesonide [Pulmicort] 0.5 mg IH BID 06/01/15 [History Confirmed 10/29/18 Last Taken 06/04/15] Esomeprazole Magnesium [Nexium] 40 mg PO DAILY 06/01/15 [History Confirmed 10/29/18 Last Taken 06/04/15] Gabapentin [Neurontin] 600 mg PO TID 06/01/15 [History Confirmed 10/28/18 Last Taken 06/04/15] HYDROcodone/APAP 10/325MG [[place] 10/325Mg] 1 tab PO QIDP PRN 06/01/15 [History Confirmed 10/29/18 Last Taken 06/04/15] Levothyroxine Sodium [Synthroid] 50 mcg PO DAILY 06/01/15 [History Confirmed 10/29/18 Last Taken 06/04/15] Montelukast [Singular] 10 mg PO DAILY 06/01/15 [History Confirmed 10/28/18 Last Taken 06/04/15] Polyethylene Glycol 3350 [Miralax] 17 gm PO DAILY 06/01/15 [History Confirmed 10/29/18 Last Taken 06/04/15] metFORMIN HCL [Glucophage] 1,000 mg PO DAILY 06/01/15 [History Confirmed 10/28/18 Last Taken 06/04/15] morphine SULFATE IN 0.9 % NACL [Morphine-Ns 30 mg/30 ml] 30 mg IV .COMPLEX 06/01/15 [History Confirmed 10/28/18 Last Taken 06/04/15] predniSONE [Prednisone] 4.5 mg PO DAILY 06/01/15 [History Confirmed 10/28/18 Last Taken 06/04/15] Atorvastatin [Lipitor] 40 mg PO HS 10/28/18 [History Confirmed 10/28/18 Last Taken Unknown] Lisinopril [Zestril] 5 mg PO DAILY 10/28/18 [History Confirmed 10/28/18 Last Taken Unknown] Albuterol Sulfate [Ventolin] 2.5 mg NEB TIDP PRN 10/29/18 [History Confirmed 10/29/18 Last Taken Unknown] Erythromycin Ophth Oint [Ilotycin Ophth Oint] 1 ribbon OD HS 10/29/18 [History Confirmed 10/29/18 Last Taken Unknown] Fluconazole [Diflucan] 200 mg PO DAILY 10/29/18 [History Confirmed 10/29/18 Last Taken Unknown] Furosemide [Lasix] 80 mg PO DAILY 10/29/18 [History Confirmed 10/29/18 Last Taken Unknown] Lactobacillus Acidophilus [Acidophilus Probiotic] 0.5 mg PO DAILY 10/29/18 [History Confirmed 10/29/18 Last Taken Unknown] Propylene Glycol/Peg 400 [Systane 0.3-0.4% Eye Drops] 1 gtt OP PRN PRN 10/29/18 [History Confirmed 10/29/18 Last Taken Unknown] Medical - DS: Hosp Hospital course: Ms. Rosado is a 78 year old F was fairly independent at baseline and presents to the ER with progressive weakness over the last 3 days to the point patient could barely function. She endorses to fever, loss of appetite and due to pro found weakness fell last evening unable to get back up on her feet. In desperation she called 911 and was brought into the ER for evaluation. Initial workup was consistent with influenza A, pyuria on UA patient was started on Tamiflu/crystalloids. Hospitalist service was requested for admission. At the time of evaluation patient is extremely lethargic. Unable to answer any questions or provide a meaningful history. She however denies headache, diarrhea, dysuria but endorses to weakness fatigue and loss of appetite. 10/28-patient very lethargic and fatigued and short of breath. Continuing bronchodilators/treatments. Start NG tube feeding for nutrition due to high risk aspiration and weakness. Foleys draining clear urine. MAXIMUM TEMPERATURE 102. Gram-negative bacilli in urine. 10/29-patient doing remarkably better. Ongoing tube feeds, speech ST eval today. Afebrile. More lucid and alert and sitting on chair. Able to converse. Continue physical therapy. Continue supportive treatment. May discontinue tube feeds if able to swallow 10/30-patient more alert and awake, NG discontinued, tolerating diet, to person assist physical therapy. Anticipate SNF transfer. Continue Tamiflu. Continue supportive management 10/31- bilateral chest infiltrates on imaging. On broad antibiotic coverage. De- escalate to include gram negatives/nosocomial pathogen. Continue Zosyn and va ncomycin. Continue nutrition and physical therapy. Echocardiogram to rule out underlying CHF. Continue pulmonary toilet/aspiration precautions. On diet per ST recommendations 11/01 Patient seen and examined, sitting comfortably in chair, no complaints no acute concerns. She notes that she does not feel hungry and has dry mouth. Chest x-ray done today shows improved infiltrates The patient is on baseline oxygen needs 2 L Echocardiogram shows moderate pulmonary hypertension, normal left ventricular function, atrial septal defect secundum 11/02 Patient seen examined, no acute events, still tried and weak, but labs are stable, clinically improving stable for discharge In Summary patient admitted to the hospital for weakness, diagnosed with influenzae A, UTI, She late developed aspiration pneumonia. She was treated with antibiotics with good response. She was weak after her hospitailzation course, she will be dischargfed to SNF She will take levofloxacin 750 mg for another 5 days, metronidazole 500 mg 3 times a day for another 5 days. She will take Tamiflu for another 2 days 75 mg twice a day. Echocardiogram that was done during this hospital stay showed that the patient has pulmonary hypertension, and atrial septal defect will make a referral to see a garage door service technician at discharge The patient also had some urinary retention on ultrasound, outpatient referral for urologist will be made Discharge diagnosis: Influenzae Pneumonia, UTI, - Time Spent with Patient Total time spent providing and/or coordinating discharge services: Greater than 30 minutes Medical - DS: Exam - Constitutional Vitals: Vital Signs Temp Pulse Pulse Resp BP BP Pulse Ox 11/02/18 07:08 97.7 F 20 120/56 92 11/02/18 04:00 98.1 F 76 20 114/63 92 11/01/18 23:33 99 F 74 20 107/63 92 11/01/18 20:00 98.1 F 84 20 110/60 92 11/01/18 18:58 70 16 94 11/01/18 18:52 77 16 11/01/18 16:00 98.0 F 72 18 105/61 92 11/01/18 13:42 72 16 Intake and Output 11/01/18 11/02/18 11/02/18 21:59 05:59 13:59 Intake Total 250 850 Output Total 1800 Balance 250 -950 Intake: IV 50 50 Zosyn 3.375 gm In Dextrose 5% 50 50 in Water 50 ml @ 100 mls/hr IV Q6H [facility] Rx#:[id number] Oral 200 800 Output: Void Amount 1800 Other: Weight 210 lb 1.6 oz 210 lb 1.6 oz Patient Weight 11/03/18 05:59 Weight 210 lb 1.6 oz Additional comments: Constitutional; Afebrile, cooperative, alert, not in distress. Respiratory system: Air Entry equal on both sides, No crackles or wheezing, no rhonchi. CVS- Rate rhythm regular, S1,S2 heard, no gallop, no rub. 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 Medical - DS: Data Labs on day of discharge: Labs from last 24 hours 11/02/18 11/02/18 10/30/18 04:00 04:00 Unknown WBC 5.8 RBC 3.73 L Hgb 10.9 L Hct 32.9 L MCV 88.1 MCH 29.0 MCHC 33.0 RDW 14.9 H Plt Count 175 MPV 9.5 Gran % 54.6 Lymph % (Auto) 31.7 [place] % (Auto) 10.5 Eos % (Auto) 2.7 Baso % (Auto) 0.5 Gran # 3.2 Lymph # (Auto) 1.8 [place] # (Auto) 0.6 Eos # (Auto) 0.2 Baso # (Auto) 0 Sodium 137 Potassium 4.4 Chloride 94 L Carbon Dioxide 29 Anion Gap 14.0 BUN 28 H Creatinine 1.1 GFR Calculation 47 Glucose 94 Uric Acid 6.2 Calcium 9.8 Phosphorus 4.4 Magnesium 1.9 Total Bilirubin 0.5 Direct Bilirubin < 0.2 GGT 68 H AST 17 ALT 15 Alkaline Phosphatase 47 Lactate Dehydrogenase 204 Total Protein 7.1 Albumin 3.8 Globulin 3.3 Albumin/Globulin Ratio 1.2 Triglycerides 207 H Ur Culture Indicated? Yes Preliminary micro results at discharge 11/01/18 19:09 Urine Culture - Preliminary Urine - Clean Void [facility] - DS: A/P - Patient/Caregiver Discharge Instructions Activity: increase activity as tolerated Diet: Dysphagia Mech Alter Additional Instructions: Patient will take levofloxacin and metronidazole for another 5 days. The patient will take Tamiflu for another 2 days Follow-up with cardiology as an outpatient in 2-4 weeks, Dr See. Follow-up with urology as an outpatient in 1-2 weeks, Dr Nur Follow-up with PCP in 1-2 weeks, Dr Arias Go to the emergency room if worsening condition chest pain fever shortness of breath or any other acute concerns The patient has home medication listed as morphine IV, this is a medication I believe used in the patient's pain pump and not given intravenously Prescriptions: HYDROcodone/APAP 10/325MG [[place] 10-325Mg] 1 tab PO QIDP PRN #30 tab PRN Reason: Pain Levofloxacin [Levaquin] 750 mg PO DAILY #5 tab metroNIDAZOLE [Metronidazole] 500 mg PO TID #15 tab Oseltamivir Phosphate [Tamiflu] 75 mg PO BID #4 cap - Follow up Plan Follow up with: Hans Arias MD [Primary Care Provider] - Disposition: Xfer [facility] Prognosis: Fair Rehab Potential: Fair I certify that the patient requires SNF services: Yes Overall status at discharge: patient is progressing back to baseline Medical - DS: Qual - VTE Deep Vein Thrombosis/Pulmonary Embolism Present on Admission: No
== END 2018-11-02 13:47 | DRG 193 ==
LOC: MEDSUR 23:47 → ED 23:47 → MEDSUR 10-27 02:36
PROVIDERS: ADMIT Internal Medicine; ATTEND Internal Medicine

== ENCOUNTER 2018-11-12 11:25 | Inpatient (IN) ==
--- NOTE | 2018-11-12 12:41 | Emergency Department Note ---
Weakness HPI - General Chief complaint: Weakness Stated complaint: confusion, weakness Time Seen by Provider: 11/12/18 12:38 Source: patient Mode of arrival: ambulatory Limitations: no limitations - History of Present Illness HPI Narrative: Patient states she woke up this morning with increased weakness and also pain into the left knee and also the left thumb. She states that she was told to have a total knee replacement in the past but because of medical issues Dr. Martinez her primary care provider felt that she should not undergo the surgery. She is running a low-grade temperature of 101.3 at this time he states she was admitted 2-3 weeks ago for a UTI and pneumonia at [facility] and since that time she has had some diarrhea and she was transferred to [facility] specialty [facility] after her discharge she states the first part of October.Her temperature is 101.3 the pulse is 76 respiratory rate 20 blood pressure 159/57 pulse ox reading anywhere from 90-92% rates the pain in her knee is a 10/10 patient denies cough sore throat or nasal congestion she does not feel that she is been having a fever there is been no fever or chills. She has had no abdominal pain but has had the diarrhea for the past several weeks. States about one time a day. There is been no blood in the stool. Denies urgency frequency or dysuria on review of previous admission patient was diagnosed with influenza A, UTI, and aspiration pneumonia was treated with Levaquin and Flagyl - Related Data Home Medications Medication Instructions Recorded Confirmed Albuterol Sulfate [Proair Hfa] 1 - 2 puff IH Q4HP PRN 06/01/15 10/29/18 Bisacodyl [Dulcolax] 10 mg PO HS 06/01/15 10/29/18 Bisoprolol Fumarate [Zebeta] 5 mg PO DAILY 06/01/15 10/28/18 Budesonide [Pulmicort] 0.5 mg IH BID 06/01/15 10/29/18 Esomeprazole Magnesium [Nexium] 40 mg PO DAILY 06/01/15 10/29/18 Gabapentin [Neurontin] 600 mg PO TID 06/01/15 10/28/18 Levothyroxine Sodium [Synthroid] 50 mcg PO DAILY 06/01/15 10/29/18 Montelukast [Singular] 10 mg PO DAILY 06/01/15 10/28/18 Polyethylene Glycol 3350 [Miralax] 17 gm PO DAILY 06/01/15 10/29/18 metFORMIN HCL [Glucophage] 1,000 mg PO DAILY 06/01/15 10/28/18 morphine SULFATE IN 0.9 % NACL 30 mg IV .COMPLEX 06/01/15 10/28/18 [Morphine-Ns 30 mg/30 ml] predniSONE [Prednisone] 4.5 mg PO DAILY 06/01/15 10/28/18 Atorvastatin [Lipitor] 40 mg PO HS 10/28/18 10/28/18 Lisinopril [Zestril] 5 mg PO DAILY 10/28/18 10/28/18 Albuterol Sulfate [Ventolin] 2.5 mg NEB TIDP PRN 10/29/18 10/29/18 Erythromycin Ophth Oint [Ilotycin 1 ribbon OD HS 10/29/18 10/29/18 Ophth Oint] Furosemide [Lasix] 80 mg PO DAILY 10/29/18 10/29/18 Lactobacillus Acidophilus 0.5 mg PO DAILY 10/29/18 10/29/18 [Acidophilus Probiotic] Propylene Glycol/Peg 400 [Systane 1 gtt OP PRN PRN 10/29/18 10/29/18 0.3-0.4% Eye Drops] cephalexin 500 mg capsule 1,000 mg PO BID 11/06/18 11/06/18 conjugated estrogens 0.625 mg/gram VAGINAL g 11/06/18 11/06/18 vaginal cream diclofenac 1 % topical gel 2 g TOPICAL QID 11/06/18 11/06/18 potassium chloride ER 10 mEq 10 meq PO QDAY 11/06/18 11/06/18 capsule,extended release voriconazole 200 mg tablet 300 mg PO BID tab 11/06/18 11/06/18 Previous Rx's Medication Instructions Recorded HYDROcodone/APAP 10/325MG [[place] 1 tab PO QIDP PRN #30 tab 11/02/18 10-325Mg] Levofloxacin [Levaquin] 750 mg PO DAILY #5 tab 11/02/18 Oseltamivir Phosphate [Tamiflu] 75 mg PO BID #4 cap 11/02/18 metroNIDAZOLE [Metronidazole] 500 mg PO TID #15 tab 11/02/18 Allergies Allergy/AdvReac Type Severity Reaction Status Date / Time niacin Allergy Severe Rash Verified 11/12/18 11:29 bacitracin AdvReac Unknown Unknown Verified 11/12/18 11:29 [From Neosporin ([id number])] Neomycin AdvReac Unknown Unknown Verified 11/12/18 11:29 [From Neosporin ([id number])] oxycodone [From OxyContin] AdvReac Unknown Unknown Verified 11/12/18 11:29 polymyxin B AdvReac Unknown Unknown Verified 11/12/18 11:29 [From Neosporin ([id number])] pravastatin [From Pravachol] AdvReac Unknown Unknown Verified 11/12/18 11:29 Sulfa (Sulfonamide AdvReac Unknown Unknown Verified 11/12/18 11:29 Antibiotics) Past Medical History - Past Medical History Psychiatric history: Reports: anxiety. Denies: depression - Social History smoking status: Never smoker Alcohol use: Reports: None Drug use: Reports: none. Denies: marijuana Physical Exam Limitations: no limitations Course Vital Signs Temperature 97.5 F 11/12/18 11:26 Pulse Rate 76 11/12/18 11:26 Respiratory Rate 20 11/12/18 11:26 Blood Pressure 115/57 11/12/18 11:26 Pulse Oximetry (%) 90 11/12/18 11:26 Temperature 100.3 F H 11/12/18 14:57 Pulse Rate 69 11/12/18 14:57 Respiratory Rate 23 H 11/12/18 14:57 Blood Pressure 124/55 11/12/18 14:57 Pulse Oximetry (%) 90 11/12/18 14:57 Weakness - MDM Narrative Medical decision making narrative: Patient's x-rays reveal a moderate right infiltrate increasing. ABGs show that is running at 88% on room air. Urine test was negative sodium is 139 potassium 4.0 the BUN is 25 creatinine 1.1 C-reactive protein protein elevated lactic acid is 1.9 BBC is 9400 to hemoglobin 12.2 hematocrit 37.1 patient's blood cultures are being drawn and patient started on Rocephin and Zithromax Dr. Ortiz contacted and patient to be admitted - Lab Data Result diagrams: 11/12/18 12:37 11/12/18 12:36 Lab Results 11/12/18 11/12/18 11/12/18 Range/Units 12:36 12:36 12:37 WBC 9.4 (4.5-11.0) K/mcL RBC 4.26 (4.00-5.20) M/mcL Hgb 12.2 (12.0-15.0) g/dL Hct 37.1 (36.0-48.0) % MCV 87.0 (80.0-100.0) fL MCH 28.5 (26.0-34.0) pg MCHC 32.8 (31.0-36.0) g/dL RDW 15.5 H (11.5-14.5) % Plt Count 204 (140-440) K/mcL MPV 8.9 (7.4-10.4) fL Total Counted 100 Seg Neutrophils % 68 (38-78) % Band Neutrophils % 10 (0-10) % Lymphocytes % 13 L (15-49) % Monocytes % (Manual) 8 (1-12) % Eosinophils % (Manual) 1 (0-7) % Platelet Estimate Normal (NORMAL) RBC Morphology Abnorm A (NORMAL) Ovalocytes 1+ A (NONE SEEN) ESR (0-20) mm/hr VBG Lactic Acid 1.9 (0.5-2.0) mmol/L Sodium 139 (133-145) mmol/L Potassium 4.0 (3.3-5.1) mmol/L Chloride 94 L (96-108) mmol/L Carbon Dioxide 28 (22-30) mmol/L Anion Gap 17.0 H (8-16) BUN 25 H (8-23) mg/dl Creatinine 1.1 (0.6-1.1) mg/dl GFR Calculation 47 Glucose 199 H (70-105) mg/dL Calcium 9.5 (8.6-10.4) mg/dl Total Bilirubin 0.6 (0.0-1.0) mg/dL AST 19 (0-37) U/l ALT 13 (0-40) U/l Alkaline Phosphatase 60 (39-117) U/L Troponin T (0-0.03) ng/ml C-Reactive Protein (0.0-0.8) mg/dl Total Protein 7.7 (5.9-8.4) gm/dL Albumin 4.3 (3.2-5.2) gm/dL Globulin 3.4 (2.2-3.7) gm/dL Albumin/Globulin Ratio 1.3 (1.0-2.3) Urine Color Urine Appearance Urine pH (5.0-9.0) Ur Specific [place] (1.000-1.035) Urine Protein (<25) mg/dL Urine Glucose (UA) (NORM) mg/dL Urine Ketones (NEG) mg/dL Urine Occult Blood (<5) chip/mcL Urine Nitrate (NEG) Urine Bilirubin (NEG) mg/dL Urine Urobilinogen (NORM) mg/dL Ur Leukocyte Esterase (NEG) /mcL Urine RBC (0-1) /hpf Urine WBC (0-4) /hpf Ur Squamous Epith Cells (0-4) /hpf Ur Transition Epith Cell (0-2) /hpf Urine Bacteria (0) /hpf Ur Culture Indicated? 11/12/18 11/12/18 11/12/18 Range/Units 12:42 12:43 12:43 WBC (4.5-11.0) K/mcL RBC (4.00-5.20) M/mcL Hgb (12.0-15.0) g/dL Hct (36.0-48.0) % MCV (80.0-100.0) fL MCH (26.0-34.0) pg MCHC (31.0-36.0) g/dL RDW (11.5-14.5) % Plt Count (140-440) K/mcL MPV (7.4-10.4) fL Total Counted Seg Neutrophils % (38-78) % Band Neutrophils % (0-10) % Lymphocytes % (15-49) % Monocytes % (Manual) (1-12) % Eosinophils % (Manual) (0-7) % Platelet Estimate (NORMAL) RBC Morphology (NORMAL) Ovalocytes (NONE SEEN) ESR 54 H (0-20) mm/hr VBG Lactic Acid (0.5-2.0) mmol/L Sodium (133-145) mmol/L Potassium (3.3-5.1) mmol/L Chloride (96-108) mmol/L Carbon Dioxide (22-30) mmol/L Anion Gap (8-16) BUN (8-23) mg/dl Creatinine (0.6-1.1) mg/dl GFR Calculation Glucose (70-105) mg/dL Calcium (8.6-10.4) mg/dl Total Bilirubin (0.0-1.0) mg/dL AST (0-37) U/l ALT (0-40) U/l Alkaline Phosphatase (39-117) U/L Troponin T < 0.01 (0-0.03) ng/ml C-Reactive Protein 1.0 H (0.0-0.8) mg/dl Total Protein (5.9-8.4) gm/dL Albumin (3.2-5.2) gm/dL Globulin (2.2-3.7) gm/dL Albumin/Globulin Ratio (1.0-2.3) Urine Color Urine Appearance Urine pH (5.0-9.0) Ur Specific [place] (1.000-1.035) Urine Protein (<25) mg/dL Urine Glucose (UA) (NORM) mg/dL Urine Ketones (NEG) mg/dL Urine Occult Blood (<5) chip/mcL Urine Nitrate (NEG) Urine Bilirubin (NEG) mg/dL Urine Urobilinogen (NORM) mg/dL Ur Leukocyte Esterase (NEG) /mcL Urine RBC (0-1) /hpf Urine WBC (0-4) /hpf Ur Squamous Epith Cells (0-4) /hpf Ur Transition Epith Cell (0-2) /hpf Urine Bacteria (0) /hpf Ur Culture Indicated? 11/12/18 Range/Units 13:47 WBC (4.5-11.0) K/mcL RBC (4.00-5.20) M/mcL Hgb (12.0-15.0) g/dL Hct (36.0-48.0) % MCV (80.0-100.0) fL MCH (26.0-34.0) pg MCHC (31.0-36.0) g/dL RDW (11.5-14.5) % Plt Count (140-440) K/mcL MPV (7.4-10.4) fL Total Counted Seg Neutrophils % (38-78) % Band Neutrophils % (0-10) % Lymphocytes % (15-49) % Monocytes % (Manual) (1-12) % Eosinophils % (Manual) (0-7) % Platelet Estimate (NORMAL) RBC Morphology (NORMAL) Ovalocytes (NONE SEEN) ESR (0-20) mm/hr VBG Lactic Acid (0.5-2.0) mmol/L Sodium (133-145) mmol/L Potassium (3.3-5.1) mmol/L Chloride (96-108) mmol/L Carbon Dioxide (22-30) mmol/L Anion Gap (8-16) BUN (8-23) mg/dl Creatinine (0.6-1.1) mg/dl GFR Calculation Glucose (70-105) mg/dL Calcium (8.6-10.4) mg/dl Total Bilirubin (0.0-1.0) mg/dL AST (0-37) U/l ALT (0-40) U/l Alkaline Phosphatase (39-117) U/L Troponin T (0-0.03) ng/ml C-Reactive Protein (0.0-0.8) mg/dl Total Protein (5.9-8.4) gm/dL Albumin (3.2-5.2) gm/dL Globulin (2.2-3.7) gm/dL Albumin/Globulin Ratio (1.0-2.3) Urine Color Yellow Urine Appearance Clear Urine pH 6.0 (5.0-9.0) Ur Specific [place] 1.020 (1.000-1.035) Urine Protein Neg (<25) mg/dL Urine Glucose (UA) Negative (NORM) mg/dL Urine Ketones Neg (NEG) mg/dL Urine Occult Blood Neg (<5) chip/mcL Urine Nitrate Neg (NEG) Urine Bilirubin 0.2-1.0 (normal) (NEG) mg/dL Urine Urobilinogen Norm (NORM) mg/dL Ur Leukocyte Esterase Neg (NEG) /mcL Urine RBC 0 (0-1) /hpf Urine WBC 1 (0-4) /hpf Ur Squamous Epith Cells 1 (0-4) /hpf Ur Transition Epith Cell 0 (0-2) /hpf Urine Bacteria 0 (0) /hpf Ur Culture Indicated? No Disposition Pt seen by SENIOR [employer]OPLESO[employer] DEVELOPER/PA only: No Clinical Impression: Right lower lobe pneumonia Clinical Impression: (Ruled Out): Right middle lobe pneumonia Disposition: Xfer As Inpt ([facility]) Condition: Good Referrals: Hans Arias MD [Primary Care Provider] - Time of Disposition: 15:28
[2018-11-12 13:05] LABS: Mean Corpuscular HGB Conc 32.8 g/dL (31.0-36.0); Platelet Count 204 K/mcL (140-440); RBC 4.26 M/mcL (4.00-5.20); Red Cell Distribution Width 15.5 % (11.5-14.5)
--- NOTE | 2018-11-12 13:06 | XRay Report ---
CLINICAL INFORMATION: fever, weakness, unable to stand. COMPARISON: 11/01/2018 FINDINGS: Moderate cardiomegaly is unchanged. Mediastinum and pulmonary vessels are normal. Right diaphragm is mildly elevated and there is mild right basilar airspace disease - likely atelectasis IMPRESSION: Mild airspace disease right base - likely atelectasis. Chronic elevation right diaphragm Mild stable cardiomegaly with no evidence of CHF Interpreted and Authenticated by: Joshua Melissa 11/12/18
[2018-11-12 13:28] LABS: Band Neutrophils % 10 % (0-10); Eosinophils % (Manual) 1 % (0-7); Lymphocytes % 13 % (15-49); Monocytes % (Manual) 8 % (1-12); Ovalocytes 1+ (NONE SEEN); Platelet Estimate NORMAL (NORMAL); RBC Morphology ABNORM (NORMAL); Segmented Neutrophils % 68 % (38-78)
[2018-11-12 13:30] LABS: ALT/SGPT 13 U/l (0-40); Albumin 4.3 gm/dL (3.2-5.2); Albumin/Globulin Ratio 1.3 (1.0-2.3); Alkaline Phosphatase 60 U/L (39-117); Blood Urea Nitrogen 25 mg/dl (8-23)
--- NOTE | 2018-11-12 14:35 | XRay Report ---
CLINICAL INFORMATION: left knee swelling/pain COMPARISON: None. FINDINGS: Severe patellofemoral and medial tibiofemoral degenerative change noted. No osseous abnormality. There is moderate medial periarticular soft tissue swelling IMPRESSION: Severe patellofemoral and medial tibiofemoral degeneration Moderate medial periarticular soft tissue swelling Interpreted and Authenticated by: Joshua Melissa 11/12/18
--- NOTE | 2018-11-12 14:37 | XRay Report ---
CLINICAL INFORMATION: left thumb pain. COMPARISON: None. FINDINGS: Severe osteoarthritis of the first DIP and moderate degenerative changes of first CMC noted. The first MCP is normal. No other osseous abnormalities. Soft tissues normal. IMPRESSION: Severe first DIP erosive osteoarthritis and moderate first CMC degenerative change Interpreted and Authenticated by: Joshua Melissa 11/12/18
[2018-11-12 14:48] LABS: Appearance,Urine CLEAR; Bilirubin,Urine 0.2-1.0 (NORMAL) mg/dL (NEG); Color,Urine YELLOW; Glucose,Urine (UA) NEGATIVE (NORM); Leukocyte Esterase,Urine NEG /mcL (NEG); Protein,Urine NEG mg/dL (<25); Urine Blood NEG ery/mcL (<5); Urine RBC 0 /hpf (0-1); Urine Squamous Epithelial Cell 1 /hpf (0-4); Urine Transitional Epi Cells 0 /hpf (0-2); Urine WBC 1 /hpf (0-4); Urobilinogen,Urine NORM (NORM)
[2018-11-12 14:50] LABS: Bacteria,Urine 0 /hpf (0)
--- NOTE | 2018-11-12 17:19 | Internal Med History&Physical ---
Medical - H&P: HPI Patient information: Note initiated : 11/12/18 at 5:12 pm Service Date, if different from initiated Date: [] Patient: Anne Rosado a 78 y/o F admitted on for Confusion, Weakness. Chief Complaint: [] History of present illness: Ms. Rosado is a 78 year old F recently discharged from this hospital to [facility], presents to the ER today for evaluation of pain in the left knee and left thumb that started today According to the patient she was doing well until yesterday, she woke up today with severe pain in her left knee as well as the left thumb, she was unable to move or stand on that leg. She was very weak and it was hurting her significantly to even put minimal weight on the left leg. The patient also had significant pain and tenderness on the left thumb. She therefore came to the hospital for further evaluation. The patient was admitted to the hospital with a diagnosis of pneumonia, influenza A, and a UTI, she completed a course of treatment, and was doing well. The patient does not have a history of gout. The patient denies any cough chest pain shortness of breath nausea vomiting abdominal pain, she has chronic dry mouth, denies any urinary complaint, she has chronic swelling in her lower extremities, she has bilateral erythema venous stasis on both her extremities right more than the left. On presentation to the hospital patient had fever, highest temperature 101.3, heart rate 71 blood pressure 118/53 saturating 90%, labs show hemoglobin of 12.2, WBC 9.4 platelets 204, troponin less than 0.01, lactic acid 1.9 ESR 54 CRP 1, sodium 139 potassium 4.0 bicarbonate 21 creatinine 1.1 glucose 199 Blood cultures were done, Chest x-ray shows mild airspace disease on the right side, chronic right hemidiaphragm elevation, likely atelectasis. X-ray of the left knee shows severe degenerative joint disease, and moderate tissue swelling. X-ray of the left hand shows severe DJD. Given the significant weakness, inability to ambulate the patient will be admitted to the hospital. At the time of admission however it is not certain of the patient has septic arthritis or just a gout flareup. Patient is to get aspiration of the left knee status of the patient with her inpatient versus observation will be determined after we get results from the synovial fluid analysis The patient is fully aware that she has severe arthritis in her joints, it seems was advised replacement in the past All systems: reviewed and no additional remarkable complaints except as stated (as per HPI rest negative) Medical - H&P: [facility] Medical history: Medical History (Last Updated 11/06/18 @ 14:58 by Lakia Denton) Frequent falls (Chronic) Injury of musculoskeletal system (Chronic) History of fracture (Chronic) Carotid bruit (Chronic) Venous insufficiency of leg (Chronic) Ringworm (Chronic) Hypercalcemia (Chronic) Irritable bowel syndrome (Chronic) Incontinence (Chronic) Diarrhea (Chronic) Constipation (Chronic) Chest pain (Chronic) Uses nebulizer and inhaler at home (Chronic) Uses walker (Chronic) CPAP (continuous positive airway pressure) dependence (Chronic) Edema (Chronic) Lumbar spondylosis (Chronic) Skin lesion (Chronic) GERD without esophagitis (Chronic) Reactive airway disease (Chronic) Obstructive sleep apnea (Chronic) Anemia (Chronic) Hyperlipidemia (Chronic) Candidiasis of mouth (Chronic) Post-herpetic polyneuropathy (Chronic) Long-term current use of thyroid hormone replacement therapy (Chronic) DNR (do not resuscitate) (Chronic) Diabetes mellitus type 2, uncontrolled (Chronic) Hypertension, essential (Chronic) Chronic, continuous use of opioids (Chronic) Obesity (BMI 30-39.9) (Chronic) Chronic use of steroids (Chronic) Osteoarthritis (Chronic) GERD (gastroesophageal reflux disease) (Chronic) Hypothyroidism, acquired (Chronic) COPD (chronic obstructive pulmonary disease) (Chronic) Asthma, chronic (Chronic) Post herpetic neuralgia (Chronic) Osteoporosis (Chronic) Back Pain (Chronic) DDD (degenerative disc disease) (Chronic) Chronic constipation (Chronic) Anxiety, generalized (Chronic) 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) Surgical history: Past Surgical History (Last Updated 11/06/18 @ 14:08 by Lakia Denton) H/O total hysterectomy (Chronic) History of cataract surgery (Chronic) History of hip surgery (Chronic) History of total knee arthroplasty (Chronic) S/P cataract surgery (Chronic) S/P insertion of spinal cord stimulator (Chronic) Family history: reviewed and not pertinent Medical - H&P: Meds Home Medications Medication Instructions Recorded Confirmed Type Albuterol Sulfate [Proair Hfa] 1 - 2 puff IH Q4HP PRN 06/01/15 11/12/18 History Bisacodyl [Dulcolax] 10 mg PO HS 06/01/15 11/12/18 History Bisoprolol Fumarate [Zebeta] 5 mg PO DAILY 06/01/15 11/12/18 History Budesonide [Pulmicort] 0.5 mg IH BID 06/01/15 11/12/18 History Gabapentin [Neurontin] 600 mg PO TID 06/01/15 11/12/18 History Levothyroxine Sodium [Synthroid] 50 mcg PO DAILY 06/01/15 11/12/18 History Montelukast [Singular] 10 mg PO DAILY 06/01/15 11/12/18 History Polyethylene Glycol 3350 [Miralax] 17 gm PO DAILY 06/01/15 11/12/18 History metFORMIN HCL [Glucophage] 1,000 mg PO DAILY 06/01/15 11/12/18 History Atorvastatin [Lipitor] 40 mg PO HS 10/28/18 11/12/18 History Lisinopril [Zestril] 5 mg PO DAILY 10/28/18 11/12/18 History Albuterol Sulfate [Ventolin] 2.5 mg NEB TIDP PRN 10/29/18 11/12/18 History Erythromycin Ophth Oint [Ilotycin 1 ribbon OD HS 10/29/18 11/12/18 History Ophth Oint] Furosemide [Lasix] 80 mg PO DAILY 10/29/18 11/12/18 History Lactobacillus Acidophilus 0.5 mg PO DAILY 10/29/18 11/12/18 History [Acidophilus Probiotic] Propylene Glycol/Peg 400 [Systane 1 gtt OP PRN PRN 10/29/18 11/12/18 History 0.3-0.4% Eye Drops] HYDROcodone/APAP 10/325MG [[place] 1 tab PO QIDP PRN #30 tab 11/02/18 11/12/18 Rx 10-325Mg] conjugated estrogens 0.625 mg/gram 1 applic VAGINAL DAILY g 11/06/18 11/12/18 History vaginal cream diclofenac 1 % topical gel 2 g TOPICAL QID 11/06/18 11/12/18 History potassium chloride ER 10 mEq 10 meq PO QDAY 11/06/18 11/12/18 History capsule,extended release voriconazole 200 mg tablet 300 mg PO BID tab 11/06/18 11/12/18 History Esomeprazole Magnesium [Nexium] 40 mg PO DAILY 11/12/18 11/12/18 History Lactobacillus Acidophilus 1 each PO DAILY 11/12/18 11/12/18 History [Acidophilus] predniSONE [Prednisone Intensol] 4.5 mg PO DAILY 11/12/18 11/12/18 History Allergies Allergy/AdvReac Type Severity Reaction Status Date / Time niacin Allergy Severe Rash Verified 11/12/18 11:29 bacitracin AdvReac Unknown Unknown Verified 11/12/18 11:29 [From Neosporin ([id number])] Neomycin AdvReac Unknown Unknown Verified 11/12/18 11:29 [From Neosporin ([id number])] oxycodone [From OxyContin] AdvReac Unknown Unknown Verified 11/12/18 11:29 polymyxin B AdvReac Unknown Unknown Verified 11/12/18 11:29 [From Neosporin ([id number])] pravastatin [From Pravachol] AdvReac Unknown Unknown Verified 11/12/18 11:29 Sulfa (Sulfonamide AdvReac Unknown Unknown Verified 11/12/18 11:29 Antibiotics) Medical - H&P: Exam - Constitutional Vitals: Temp Pulse Resp BP Pulse Ox 100.3 F H 71 15 125/49 92 11/12/18 15:31 11/12/18 15:31 11/12/18 15:31 11/12/18 15:31 11/12/18 15:31 Exam: Constitutional; Afebrile, cooperative, alert, not in distress. Eyes- No icterus, , No periorbital swelling Ears- Ext ear normal, hearing normal to conversation. Neck- Midline trachea, supple Respiratory system: Air Entry equal on both sides, No crackles or wheezing, no rhonchi. CVS- Rate rhythm regular, S1,S2 heard, no gallop, no rub. Abdomen- Soft nontender abdomen, no organomegaly, no tenderness, no guarding or rigidity, WINDOW REPAIRER- AOOx3, moving all extremities, no gross focal deficit noted. Left knee swollen, tender to touch, effusion noted, no significant erythema, or increased warmth compared to other knee. BIlateral edema, present, left > right venous statisis noted. Left hand, 1st DIP joint tender to touch, no gross erythema noted. Medical - H&P: Reslt - Labs CBC & Chem 7: 03/18/19 12:37 11/12/18 12:36 Labs: Short CBC 11/12/18 Range/Units 12:37 WBC 9.4 (4.5-11.0) K/mcL Hgb 12.2 (12.0-15.0) g/dL Hct 37.1 (36.0-48.0) % Plt Count 204 (140-440) K/mcL BMP 11/12/18 12:36 Sodium 139 Potassium 4.0 Chloride 94 L Carbon Dioxide 28 BUN 25 H Creatinine 1.1 Glucose 199 H Calcium 9.5 Cardiac Enzymes 11/12/18 Range/Units 12:43 Troponin T < 0.01 (0-0.03) ng/ml Liver Function 11/12/18 Range/Units 12:36 Total Bilirubin 0.6 (0.0-1.0) mg/dL AST 19 (0-37) U/l ALT 13 (0-40) U/l Alkaline Phosphatase 60 (39-117) U/L Albumin 4.3 (3.2-5.2) gm/dL Urine 11/12/18 Range/Units 13:47 Urine Color Yellow Urine Appearance Clear Urine pH 6.0 (5.0-9.0) Ur Specific [place] 1.020 (1.000-1.035) Urine Protein Neg (<25) mg/dL Urine Glucose (UA) Negative (NORM) mg/dL Medical - H&P: A/P - Narrative A/P Narrative: A/P Acute Joint pain/ Left knee/ Left thumb first DIP. -LIkely gout, however infection cannot be ruled out, check procalcitonin, blood culturesent. will send left knee synovial fluid for analysis, check crystal,s cell count and cultures. Will give empheric ABX till results are back after knee is aspirated. Influenzae Pneuomnia -resolved, cxr shows atelectasis Fever -likely from gout, could be atelectasis, check procalcitonin, could be septic arthritis. If no obvious source will get [place] CT ASD -outpatient Cardiology follow up Weakness -Rehab, treat the underlying etiology Chr pain -resume home pain medication reginme DM -SSI for glucose control Anxiety -stable on buspar GERD -on ppi Hypothyroidism -stable on levothyroxine. DVT hep sq Social History - Social History household members: alone occupational status: unemployed - Tobacco smoking status: Never smoker - Alcohol alcohol intake frequency: does not drink
[2018-11-12] MEDS ORDERED: ALBUTEROL SULFATE 2.5 MG/3 ML NEBULIZER NEB PRN (18:22)
[2018-11-12] MEDS ORDERED: DEXTROSE 50% 50 ML VIAL IV PRN (18:22)
[2018-11-12] MEDS ORDERED: NALOXONE HCL 0.4 MG/ML VIAL IV PRN (18:22)
[2018-11-12] MEDS ORDERED: VANCOMYCIN PER PHARMACY IV SCH (18:22)
[2018-11-12] MEDS ORDERED: ONDANSETRON 4 MG/2 ML VIAL IV PRN (18:22)
[2018-11-12] MEDS ORDERED: DEXTROSE 31 GM ORAL.SUSP PO PRN (18:22)
[2018-11-12] MEDS ORDERED: ACETAMINOPHEN 325 MG TABLET PO PRN (18:22)
--- NOTE | 2018-11-12 19:07 | XRay Report ---
CLINICAL INFORMATION: Large tibiofemoral and patellofemoral effusions. Possibly septic arthritis TECHNIQUE: The procedure and risks including the possibility of bleeding and worsening infection were explained to the patient. She understood and wished to proceed. With the patient supine on the fluoroscopy table, the skin overlying the medial patellofemoral joint was fluoroscopically marked and the skin was prepped and locally anesthetized 1% lidocaine to the level of the central patellofemoral joint. An 18-gauge spinal needle was placed under fluoroscopic guidance in the subpatellar region and approximately 12 cc of normal appearing apurulent synovial fluid was aspirated and sent for requested studies. The patient tolerated the procedure relatively well without apparent complication. Total fluoroscopy time 30 seconds IMPRESSION: Successful fluoroscopic guided aspiration of the patellofemoral joint yielding 12 cc of normal-appearing synovial fluid. Fluid was sent to the lab for requested studies. No apparent complication Interpreted and Authenticated by: Joshua Melissa 11/12/18
[2018-11-12] MEDS ORDERED: VANCOMYCIN 1,500 MG in 0.9 % SODIUM CHLORIDE 500 ML IV ONE (19:39)
[2018-11-12] MEDS ORDERED: cefTRIAXone 2 GM VIAL ONE (19:47)
[2018-11-12] MEDS: cefTRIAXone 2 GM in DEXTROSE 5% IN WATER 50 ML IV SCH (19:49)
[2018-11-12] MEDS: 0.9 % SODIUM CHLORIDE 10 ML SYRINGE IV SCH ×2 (19:50→20:34)
[2018-11-12] MEDS: VORICONAZOLE PO SCH (19:55)
[2018-11-12] MEDS: INSULIN LISPRO 1 UNIT/0.01 ML UNIT SQ SCH (19:55)
[2018-11-12 20:14] LABS: Appearance,Synovial Fluid HAZY; Color,Synovial Fluid RED; Crystals,Body Fluid NONE SEEN (NONE SEEN); Lymphocytes,Synovial Fluid 1 %; Neutrophils,Synovial Fluid 95 % (0-25); Other Cells,Synovial Fluid 4 %
[2018-11-12] MEDS: ATORVASTATIN 20 MG TABLET PO SCH (20:33)
[2018-11-12] MEDS: HEPARIN 5,000 UNIT/ML VIAL SQ SCH (20:34)
[2018-11-12] MEDS: BISACODYL 5 MG TABLET PO SCH (20:34)
[2018-11-12] MEDS: VANCOMYCIN 1,000 MG in 0.9 % SODIUM CHLORIDE 250 ML IV SCH (20:34)
[2018-11-12] MEDS: GABAPENTIN 300 MG CAPSULE PO SCH (20:34)
[2018-11-12] MEDS: ALBUTEROL SULFATE 2.5 MG/3 ML NEBULIZER NEB SCH (21:15)
[2018-11-12] MEDS: COLCHICINE 0.6 MG TABLET PO SCH (22:51)
[2018-11-12] MEDS: HYDROcodone/APAP 10/325MG TABLET PO PRN (23:16)
[2018-11-13] MEDS: 0.9 % SODIUM CHLORIDE 10 ML SYRINGE IV SCH ×3 (05:36→20:22)
[2018-11-13 06:47] LABS: Basophils # (Auto) 0 K/mcL (0.0-0.3); Basophils % (Auto) 0.3 % (0.0-2.0); Eosinophils # (Auto) 0 K/mcL (0.0-0.7); Eosinophils % (Auto) 0.6 % (0.0-7.0); Granulocytes % (Auto) 68.4 % (38.0-78.0); Lymphocytes # (Auto) 1.3 K/mcL (1.5-4.8); Lymphocytes % (Auto) 18.8 % (15.5-49.0); Mean Cell Volume 88.3 fL (80.0-100.0); Mean Corpuscular HGB Conc 32.8 g/dL (31.0-36.0); Monocytes # (Auto) 0.8 K/mcL (0.1-0.9); Monocytes % (Auto) 11.9 % (1.0-12.0); Platelet Count 161 K/mcL (140-440); RBC 3.62 M/mcL (4.00-5.20); Red Cell Distribution Width 15.8 % (11.5-14.5)
[2018-11-13 07:06] LABS: ALT/SGPT 10 U/l (0-40); Albumin 3.5 gm/dL (3.2-5.2); Albumin/Globulin Ratio 1.1 (1.0-2.3); Alkaline Phosphatase 47 U/L (39-117); Bilirubin,Direct < 0.2 mg/dL (0.0-0.3); Blood Urea Nitrogen 20 mg/dl (8-23); Gamma Glutamyl Transpeptidase 37 U/L (5-36); Uric Acid 10.6 mg/dL (2.5-8.0)
[2018-11-13] MEDS: ALBUTEROL SULFATE 2.5 MG/3 ML NEBULIZER NEB SCH ×3 (07:25→21:53)
[2018-11-13] MEDS ORDERED: metFORMIN 500 MG TABLET PO SCH (08:00)
[2018-11-13] MEDS: LEVOTHYROXINE 50 MCG TABLET PO SCH (08:02)
[2018-11-13] MEDS: PANTOPRAZOLE 40 MG TABLET PO SCH (08:02)
[2018-11-13] MEDS: INSULIN LISPRO 1 UNIT/0.01 ML UNIT SQ SCH ×4 (08:02→20:29)
[2018-11-13] MEDS ORDERED: predniSONE 1 MG TABLET PO SCH (09:00)
[2018-11-13] MEDS ORDERED: ESOMEPRAZOLE MAGNESIUM 40 MG PO SCH (09:00)
[2018-11-13] MEDS: BISOPROLOL 5 MG TABLET PO SCH (09:13)
[2018-11-13] MEDS: LISINOPRIL 5 MG TABLET PO SCH (09:13)
[2018-11-13] MEDS: HEPARIN 5,000 UNIT/ML VIAL SQ SCH ×2 (09:13→20:21)
[2018-11-13] MEDS: FUROSEMIDE 80 MG TABLET PO SCH (09:13)
[2018-11-13] MEDS: GABAPENTIN 300 MG CAPSULE PO SCH ×3 (09:13→20:22)
[2018-11-13] MEDS: LACTOBACILLUS 1 CAPSULE PO SCH (09:13)
[2018-11-13] MEDS: MONTELUKAST 10 MG TABLET PO SCH (09:13)
[2018-11-13] MEDS: COLCHICINE 0.6 MG TABLET PO SCH (09:13)
[2018-11-13] MEDS: POTASSIUM CHLORIDE 10 MEQ TABLET PO SCH (09:13)
[2018-11-13] MEDS: POLYETHYLENE GLYCOL 3350 17 GM PACKET PO SCH (09:14)
[2018-11-13] MEDS: VORICONAZOLE PO SCH (09:14)
[2018-11-13] MEDS: VANCOMYCIN 1,000 MG in 0.9 % SODIUM CHLORIDE 250 ML IV SCH ×2 (10:25→21:27)
[2018-11-13] MEDS: cefTRIAXone 2 GM in DEXTROSE 5% IN WATER 50 ML IV SCH (12:09)
[2018-11-13] MEDS ORDERED: predniSONE 20 MG TABLET PO ONE (13:30)
--- NOTE | 2018-11-13 15:41 | Infectious Disease Consult ---
History of Present Illness Patient information: Note initiated : 11/13/18 at 3:38 pm Service Date, if different from initiated Date: [] Patient: Anne Rosado 78 y/o F admitted on 11/13/18 for Confusion, Weakness. Chief Complaint: [] Consult date: 11/13/18 Requesting Physician: Ramses Sosa Reason for Consult: left knee swelling, left thumb swelling Chief complaint: i am hurting in my left knee and left thumb History of present illness: HPI obtained from patient and partly from chart review as patient is confused 78-year-old lady with past medical history pertinent for: Chronic osteoarthritis Right total knee arthroplasty Type 2 diabetes -Gout Recent discharge from [facility] [03/30/19] after being admitted for influenza, aspiration pneumonia and possible E. coli UTI [treated with IV vancomycin and Zosyn as inpatient and then oral levofloxacin and metronidazole as outpatient] Patient was discharged to custodial. According to the patient, for last 2-3 days she noticed acute pain in her left thumb and left knee. Rated at 10 out of 10, associated with loss of function. Patient denied any trauma, redness, drainage. She endorsed fevers starting around the same time as pain, up to 102F . Patient denied any other symptoms such as cough, shortness of breath, bites, nausea, vomiting, diarrhea, belly pain. She endorses chronic back pain. At admission, patient is febrile [101.3F], HR 71, BP 118/53. O2 sats 90% on room air. Labs: WBC 9.4 platelets 204, lactic acid 1.9, ESR 54, CRP 1, creatinine 1.1, glucose 199. 2 sets of blood cultures were sent. Chest x-ray shows mild airspace disease on the right side, chronic right hemidiaphragm elevation, likely atelectasis. X-ray of the left knee shows severe degenerative joint disease, and moderate tissue swelling. X-ray of the left hand shows severe DJD. Patient underwent aspiration of the left knee joint with synovitis fluid: Hem orrhagic type with hazy appearance, 98.3 nucleated cells with 95% neutrophils, no crystals seen, Gram stain negative. Synovial fluid cultures are pending. Patient has been on IV vancomycin and IV ceftriaxone since admission At time of visit, she confirmed the above history. She had at that her pain in the left knee and left hand has not gotten better at all and is slightly worse. She has been afebrile today. She was quite slow and had word finding difficulty during the visit. She mentioned that before her recent illness [before past hospitalization], she was mobile and able to walk around now and now she cannot even get up and has difficulty moving in the bed. She denied any diarrhea, nauseavomiting and has been able to tolerate IV antibiotics without any side effects. Review of Systems All systems PM: reviewed and no additional remarkable complaints except as stated Past History Past family history: Not pertinent to current presentation Past social history: Resides at [facility] in [facility] Medications and Allergies Home Medications Medication Instructions Recorded Confirmed Type Albuterol Sulfate [Proair Hfa] 1 - 2 puff INH Q4HP PRN 06/01/15 11/13/18 History Bisacodyl [Dulcolax] 10 mg PO HSP PRN 06/01/15 11/13/18 History Bisoprolol Fumarate [Zebeta] 5 mg PO DAILY 06/01/15 11/12/18 History Budesonide [Pulmicort] 0.5 mg INH BID 06/01/15 11/13/18 History Gabapentin [Neurontin] 600 mg PO TID 06/01/15 11/12/18 History Levothyroxine Sodium [Synthroid] 50 mcg PO QAMAC 06/01/15 11/13/18 History Montelukast [Singular] 10 mg PO DAILY 06/01/15 11/12/18 History Polyethylene Glycol 3350 [Miralax] 17 gm PO DAILYP PRN 06/01/15 11/13/18 History metFORMIN HCL [Glucophage] 1,000 mg PO QAC 06/01/15 11/13/18 History Atorvastatin [Lipitor] 40 mg PO HS 10/28/18 11/12/18 History Lisinopril [Zestril] 5 mg PO DAILY 10/28/18 11/12/18 History Albuterol Sulfate [Ventolin] 2.5 mg NEB Q8HP PRN 10/29/18 11/13/18 History Erythromycin Ophth Oint [Ilotycin 1 ribbon OD HS 10/29/18 11/12/18 History Ophth Oint] Furosemide [Lasix] 80 mg PO DAILY 10/29/18 11/12/18 History Lactobacillus Acidophilus 1 cap PO DAILY 10/29/18 11/13/18 History [Acidophilus Probiotic] Propylene Glycol/Peg 400 [Systane 1 gtt OP PRN PRN 10/29/18 11/12/18 History 0.3-0.4% Eye Drops] conjugated estrogens 0.625 mg/gram 1 applic VAGINAL DAILY g 11/06/18 11/12/18 History vaginal cream Esomeprazole Magnesium [Nexium] 40 mg PO QAMAC 11/12/18 11/13/18 History predniSONE [Prednisone Intensol] 4.5 mg PO DAILY 11/12/18 11/12/18 History Bisacodyl [Dulcolax] 10 mg AR DAILYP PRN 11/13/18 11/13/18 History Clobetasol Propionate [Temovate 1 dose TOPICAL HS 11/13/18 11/13/18 History Cream 0.05%] Na Phos,M-B/Na Phos,Di-Ba [Fleets 1 dose AR DAILYP PRN 11/13/18 11/13/18 History Adult] Ondansetron HCl [Zofran] 4 mg PO Q6HP PRN 11/13/18 11/13/18 History Allergies Allergy/AdvReac Type Severity Reaction Status Date / Time niacin Allergy Severe Rash Verified 11/12/18 11:29 oxycodone [From OxyContin] AdvReac Mild Unknown Verified 11/12/18 19:10 pravastatin [From Pravachol] AdvReac Mild Unknown Verified 11/12/18 19:10 bacitracin AdvReac Unknown Unknown Verified 11/12/18 11:29 [From Neosporin ([id number])] Neomycin AdvReac Unknown Unknown Verified 11/12/18 11:29 [From Neosporin ([id number])] polymyxin B AdvReac Unknown Unknown Verified 11/12/18 11:29 [From Neosporin ([id number])] Sulfa (Sulfonamide AdvReac Unknown Unknown Verified 11/12/18 11:29 Antibiotics) Physical Examination Vital signs: Temp Pulse Resp BP Pulse Ox 36.9 C 77 18 98/46 92 11/13/18 15:02 11/13/18 15:17 11/13/18 15:17 11/13/18 15:02 11/13/18 15:02 Alert, awake, oriented to person and place but not time. Patient thought it was 193 No thrush Chest clear to auscultation but decreased breath sounds at bases S1-S2 normal, patient probably has 2 out of 6 ejection systolic murmur at right second intercostal space Bowel sounds present, nontender, distended, soft 1+ pitting edema in both lower extremities Left knee: Swollen compared to right side, exquisitely tender at certain areas, no redness, no drainage, has a Band-Aid over arthrocentesis site from yesterday, joint movements are extremely painful Right knee: Well-healed scar from previous TKA Both hands have Heberden's nodes Left hand: The thumb and thenar eminence are slightly swollen, exquisitely tender on superficial palpation and movement. No redness, no drainage observed Results - Laboratory Findings CBC and BMP: 11/13/18 04:00 11/13/18 04:00 Abnormal lab findings: Abnormal Labs 11/12/18 11/12/18 11/12/18 12:36 12:37 12:42 RBC Hgb Hct RDW 15.5 H Lymph # (Auto) Lymphocytes % 13 L RBC Morphology Abnorm A Ovalocytes 1+ A ESR Chloride 94 L Anion Gap 17.0 H BUN 25 H Glucose 199 H Uric Acid GGT C-Reactive Protein 1.0 H Synovial Neutrophils 11/12/18 11/12/18 11/13/18 12:43 18:08 04:00 RBC 3.62 L Hgb 10.5 L Hct 31.9 L RDW 15.8 H Lymph # (Auto) 1.3 L Lymphocytes % RBC Morphology Ovalocytes ESR 54 H Chloride Anion Gap BUN Glucose Uric Acid GGT C-Reactive Protein Synovial Neutrophils 95 H 11/13/18 04:00 RBC Hgb Hct RDW Lymph # (Auto) Lymphocytes % RBC Morphology Ovalocytes ESR Chloride Anion Gap BUN Glucose 142 H Uric Acid 10.6 H GGT 37 H C-Reactive Protein Synovial Neutrophils Microbiology: Microbiology 11/12/18 13:03 Blood Blood Culture - Preliminary 11/12/18 12:34 Blood Blood Culture - Preliminary 11/12/18 18:08 Synovial Fluid - Knee Gram Stain - Preliminary 11/12/18 18:08 Synovial Fluid - Knee Body Fluid Culture - Preliminary 11/12/18 18:31 Nose MRSA (PCR) - Final Assessment and Plan - Narrative A/P Narrative: Assessment: 1. Acute arthritis involving left knee and first DIP and CMC joints: Clinically, it is uncommon to have those 2 joints involved at the same time unless patient was bacteremic which does not seem so at this moment. Preliminary workup negative for septic arthritis [white cell count, Gram stain, imaging] - CT of left hand and left knee today suggestive of severe degenerative osteoarthritis with erosive changes inv multiple joints of left hand and no effusion, and basic degenerative changes and small effusion in left knee. No concerns for septic arthritis or osteomyelitis 2. 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 Mild delirium 4. Deconditioning Recommendations: Continue IV vancomycin per pharmacy assisted dosing and IV ceftriaxone 2 g every 24 for now Await synovial fluid cultures, blood cultures. If negative at 72 hours; will stop antibiotics will follow Steven Merino MD Infectious diseases
[2018-11-13] MEDS: KETOROLAC 15 MG/ML VIAL IV SCH ×3 (17:27→23:51)
--- NOTE | 2018-11-13 17:55 | Cat Scan Report ---
CLINICAL INFORMATION: Fever - evaluate for septic arthritis osteomyelitis COMPARISON: None. TECHNIQUE: 0.625 mm helical slices were obtained from the distal one third of the femur to the proximal third of the tibia and fibula, following reconstruction, 2.5 Reyes axial, sagittal reformatted images were processed and reviewed in bone and soft tissue windows.. FINDINGS: There is no radiographic evidence of osteomyelitis. Severe patellofemoral and tibiofemoral degenerative change between joint space narrowing with large marginal osteophytes, subchondral sclerosis and cyst formation appreciated. There is moderate chondrocalcinosis within the menisci. Scattered loose bodies noted in the tibiofemoral joint ranging up to 10 mm. Moderate effusion seen in both tibiofemoral and patellofemoral joints with only slight synovial thickening. Moderate atrophy present within the posterior compartment musculature of both the thigh and the calf. IMPRESSION: 1. No evidence of osteomyelitis 2. Moderate effusion in the patellofemoral tibiofemoral joints which could potentially represent infection 3. There are patellofemoral tibiofemoral degeneration with scattered loose bodies ranging up to 10 mm in the anterior tibiofemoral joint. Interpreted and Authenticated by: Joshua Melissa 11/13/18
--- NOTE | 2018-11-13 18:01 | Cat Scan Report ---
CLINICAL INFORMATION: arthritis evaluate for infection COMPARISON: None. TECHNIQUE: 0.625 mm helical slices were obtained through the left hand and wrist. Following reconstruction, 2.5 or axial, sagittal and coronal reformatted images were processed and reviewed in bone and soft tissue windows FINDINGS: The patient was unable to straighten hand for the examination and the digits are mildly flexed. There are no regions of osteolysis or other evidence for osteomyelitis. Classic moderate erosive osteoarthritic changes are seen in all interphalangeal joints. Moderate degenerative changes noted in the first CMC. This does not appear to be excess fluid in any joint or subchondral subarticular erosions to suggest septic arthritis. There is mild edema in the volar subcutaneous region of the wrist. Muscle and fascial planes are normal IMPRESSION: No CT evidence of osteomyelitis Severe erosive osteoarthritis of all interphalangeal joints. No evidence of septic arthritis Interpreted and Authenticated by: Joshua Melissa 11/13/18
[2018-11-13] MEDS: BISACODYL 5 MG TABLET PO SCH (20:21)
[2018-11-13] MEDS: ATORVASTATIN 20 MG TABLET PO SCH (20:22)
[2018-11-13] MEDS: HYDROcodone/APAP 10/325MG TABLET PO PRN (20:22)
[2018-11-14] MEDS: 0.9 % SODIUM CHLORIDE 10 ML SYRINGE IV SCH ×3 (05:50→21:11)
[2018-11-14] MEDS: KETOROLAC 15 MG/ML VIAL IV SCH (05:50)
[2018-11-14 06:43] LABS: Basophils # (Auto) 0.1 K/mcL (0.0-0.3); Basophils % (Auto) 0.8 % (0.0-2.0); Eosinophils # (Auto) 0.1 K/mcL (0.0-0.7); Granulocytes % (Auto) 78.6 % (38.0-78.0); Lymphocytes # (Auto) 0.7 K/mcL (1.5-4.8); Lymphocytes % (Auto) 10.4 % (15.5-49.0); Mean Cell Volume 87.7 fL (80.0-100.0); Mean Corpuscular HGB Conc 33.5 g/dL (31.0-36.0); Monocytes # (Auto) 0.6 K/mcL (0.1-0.9); Monocytes % (Auto) 9.2 % (1.0-12.0); Platelet Count 144 K/mcL (140-440); RBC 3.32 M/mcL (4.00-5.20); Red Cell Distribution Width 14.6 % (11.5-14.5)
[2018-11-14 07:09] LABS: ALT/SGPT 7 U/l (0-40); Albumin 3.3 gm/dL (3.2-5.2); Albumin/Globulin Ratio 1.1 (1.0-2.3); Alkaline Phosphatase 41 U/L (39-117); Bilirubin,Direct < 0.2 mg/dL (0.0-0.3); Blood Urea Nitrogen 27 mg/dl (8-23); Gamma Glutamyl Transpeptidase 34 U/L (5-36); Uric Acid 11.3 mg/dL (2.5-8.0)
[2018-11-14] MEDS: ALBUTEROL SULFATE 2.5 MG/3 ML NEBULIZER NEB SCH ×3 (07:25→20:57)
[2018-11-14] MEDS: PANTOPRAZOLE 40 MG TABLET PO SCH (08:10)
[2018-11-14] MEDS: LEVOTHYROXINE 50 MCG TABLET PO SCH (08:10)
[2018-11-14] MEDS: INSULIN LISPRO 1 UNIT/0.01 ML UNIT SQ SCH ×4 (08:11→21:10)
[2018-11-14] MEDS ORDERED: 0.9 % SODIUM CHLORIDE 1,000 ML IV SCH (08:30)
[2018-11-14] MEDS: BISOPROLOL 5 MG TABLET PO SCH (09:47)
[2018-11-14] MEDS: MONTELUKAST 10 MG TABLET PO SCH (09:47)
[2018-11-14] MEDS: GABAPENTIN 300 MG CAPSULE PO SCH ×3 (09:47→20:56)
[2018-11-14] MEDS: LACTOBACILLUS 1 CAPSULE PO SCH (09:47)
[2018-11-14] MEDS: LISINOPRIL 5 MG TABLET PO SCH (09:47)
[2018-11-14] MEDS: POTASSIUM CHLORIDE 10 MEQ TABLET PO SCH (09:47)
[2018-11-14] MEDS: predniSONE 20 MG TABLET PO SCH (09:47)
[2018-11-14] MEDS: HEPARIN 5,000 UNIT/ML VIAL SQ SCH ×2 (09:48→20:56)
[2018-11-14] MEDS: POLYETHYLENE GLYCOL 3350 17 GM PACKET PO SCH (09:48)
[2018-11-14] MEDS: FUROSEMIDE 80 MG TABLET PO SCH (10:53)
[2018-11-14] MEDS: VANCOMYCIN 1,000 MG in 0.9 % SODIUM CHLORIDE 250 ML IV SCH (11:30)
--- NOTE | 2018-11-14 14:11 | Internal Med Progress Note ---
Medical - PN: Subj Patient information: Note initiated : 11/14/18 at 2:02 pm Service Date, if different from initiated Date: [] Patient: Anne Rosado a 78 y/o F admitted on 11/12/18 for Confusion, Weakness. Chief Complaint: [] Interval history: Note for service on 11/13 Ms. Rosado is a 78 year old F recently discharged from this hospital to [facility], presents to the ER today for evaluation of pain in the left knee and left thumb that started today According to the patient she was doing well until yesterday, she woke up today with severe pain in her left knee as well as the left thumb, she was unable to move or stand on that leg. She was very weak and it was hurting her significantly to even put minimal weight on the left leg. The patient also had significant pain and tenderness on the left thumb. She therefore came to the hospital for further evaluation. The patient was admitted to the hospital with a diagnosis of pneumonia, influenza A, and a UTI, she completed a course of treatment, and was doing well. The patient does not have a history of gout. The patient denies any cough chest pain shortness of breath nausea vomiting abdominal pain, she has chronic dry mouth, denies any urinary complaint, she has chronic swelling in her lower extremities, she has bilateral erythema venous stasis on both her extremities right more than the left. On presentation to the hospital patient had fever, highest temperature 101.3, heart rate 71 blood pressure 118/53 saturating 90%, labs show hemoglobin of 12.2, WBC 9.4 platelets 204, troponin less than 0.01, lactic acid 1.9 ESR 54 CRP 1, sodium 139 potassium 4.0 bicarbonate 21 creatinine 1.1 glucose 199 Blood cultures were done, Chest x-ray shows mild airspace disease on the right side, chronic right hemidiaphragm elevation, likely atelectasis. X-ray of the left knee shows severe degenerative joint disease, and moderate tissue swelling. X-ray of the left hand shows severe DJD. Given the significant weakness, inability to ambulate the patient will be admitted to the hospital. At the time of admission however it is not certain of the patient has septic arthritis or just a gout flareup. Patient is to get aspiration of the left knee status of the patient with her inpatient versus observation will be determined after we get results from the synovial fluid analysis The patient is fully aware that she has severe arthritis in her joints, it seems was advised replacement in the past 3 Pt seen examined, no acute issues, pt still has pain in the left thumb and the left knee cultures neg ID consulted for further eval increase dose of prednisone to 20mg start on iv toradol for 4 doses Pertinent ROS: Denies headache, dizziness Denies chest pain, palpitations Denies cough or shortness of breath Denies abdominal pain, nausea or vomiting. - Constitutional Vitals: Vital Signs Temp Pulse Resp BP Pulse Ox 98.1 F 75 20 110/56 90 11/14/18 11:33 11/14/18 11:33 11/14/18 11:33 11/14/18 11:33 11/14/18 11:33 Period Temp Pulse Resp BP Sys/Lee Pulse Ox Last 24 Hr 97.8 F-99.1 F 73-79 16-24 94-110/46-56 84-92 Intake and Output 11/14/18 11/14/18 11/14/18 05:59 13:59 21:59 Intake Total 750 600 Output Total 275 Balance 475 600 Intake & Output: Intake & Output 11/14/18 11/14/18 11/14/18 05:59 13:59 21:59 Intake Total 750 600 Output Total 275 Balance 475 600 Intake: Oral 750 GI Tube Flush 600 Output: Void Amount 275 Other: Meal Breakfast Percent of Meal Consumed 10 Feeding Ability Independent Urine Appearance Clear Clear Urine Color Dark Yellow Light Eve Urine Odor Strong Exam: Constitutional; Afebrile, cooperative, alert, not in distress. Respiratory system: Air Entry equal on both sides, No crackles or wheezing, no rhonchi. CVS- Rate rhythm regular, S1,S2 heard, no gallop, no rub. Abdomen- Soft nontender abdomen, no organomegaly, no tenderness, no guarding or rigidity, [employer]- AOOx3, moving all extremities, no gross focal deficit noted. The knee and thumb are tender to touch, Medical - PN: Obj Da - Labs CBC & Chem 7: 11/14/18 04:30 11/14/18 04:30 Labs: Abnormal Lab Results 11/14/18 11/14/18 11/14/18 09:21 04:30 04:30 RBC 3.32 L Hgb 9.7 L Hct 29.1 L RDW 14.6 H Gran % 78.6 H Lymph % (Auto) 10.4 L Lymph # (Auto) 0.7 L Lymphocytes % RBC Morphology Ovalocytes ESR Chloride Anion Gap BUN 27 H Creatinine 1.4 H Glucose 161 H Uric Acid 11.3 H Calcium 8.4 L GGT C-Reactive Protein Synovial Neutrophils Vancomycin Trough 22.4 H* 11/13/18 11/13/18 11/12/18 04:00 04:00 18:08 RBC 3.62 L Hgb 10.5 L Hct 31.9 L RDW 15.8 H Gran % Lymph % (Auto) Lymph # (Auto) 1.3 L Lymphocytes % RBC Morphology Ovalocytes ESR Chloride Anion Gap BUN Creatinine Glucose 142 H Uric Acid 10.6 H Calcium GGT 37 H C-Reactive Protein Synovial Neutrophils 95 H Vancomycin Trough 11/12/18 11/12/18 11/12/18 12:43 12:42 12:37 RBC Hgb Hct RDW 15.5 H Gran % Lymph % (Auto) Lymph # (Auto) Lymphocytes % 13 L RBC Morphology Abnorm A Ovalocytes 1+ A ESR 54 H Chloride Anion Gap BUN Creatinine Glucose Uric Acid Calcium GGT C-Reactive Protein 1.0 H Synovial Neutrophils Vancomycin Trough 11/12/18 12:36 RBC Hgb Hct RDW Gran % Lymph % (Auto) Lymph # (Auto) Lymphocytes % RBC Morphology Ovalocytes ESR Chloride 94 L Anion Gap 17.0 H BUN 25 H Creatinine Glucose 199 H Uric Acid Calcium GGT C-Reactive Protein Synovial Neutrophils Vancomycin Trough Meds: Medications Acetaminophen (Tylenol) 650 mg PO Q6HP PRN PRN Reason: PAIN/FEVER > 101 Hydrocodone Bitart/Acetaminophen (Keyes 10/325mg) 1 tab PO QIDP PRN PRN Reason: Pain Last Admin: 11/13/18 20:22 Dose: 1 tab Documented by: Albuterol Sulfate (Ventolin) 2.5 mg NEB Q2HP PRN PRN Reason: Shortness Of Breath Albuterol Sulfate (Ventolin) 2.5 mg NEB TID [facility] Last Admin: 11/14/18 07:25 Dose: 2.5 mg Documented by: Atorvastatin Calcium (Lipitor) 40 mg PO [facility] Last Admin: 11/13/18 20:22 Dose: 40 mg Documented by: Bisacodyl (Dulcolax) 10 mg PO [facility] Last Admin: 11/13/18 20:21 Dose: 10 mg Documented by: Bisoprolol Fumarate (Zebeta) 5 mg PO DAILY [facility] Last Admin: 11/14/18 09:47 Dose: 5 mg Documented by: Dextrose (Dextrose 50%) 0 ml IV UD PRN PRN Reason: Hypoglycemia Diagnostic Test (Pha) (Accu-Chek) [address] [facility] Last Admin: 11/14/18 11:47 Dose: 1 each Documented by: Furosemide (Lasix) 80 mg PO DAILY [facility] Last Admin: 11/14/18 10:53 Dose: Not Given Documented by: Gabapentin (Neurontin) 600 mg PO TID [facility] Last Admin: 11/14/18 09:47 Dose: 600 mg Documented by: Glucose (Insta-Glucose) 15 gm PO PRN PRN PRN Reason: Hypoglycemia Heparin Sodium (Porcine) (Heparin) 5,000 unit SQ Q12 [facility] Last Admin: 11/14/18 09:48 Dose: 5,000 unit Documented by: Sodium Chloride (Sodium Chloride 0.9%) 1,000 mls @ 100 mls/hr IV .Q10H [facility] Stop: 11/14/18 18:29 Last Admin: 11/14/18 09:41 Dose: 100 mls/hr Documented by: Insulin Human Lispro (Humalog) [address] [facility]; Protocol Last Admin: 11/14/18 11:55 Dose: 2 unit Documented by: Lactobacillus Rhamnosus (Culturelle) 1 cap PO DAILY [facility] Last Admin: 11/14/18 09:47 Dose: 1 cap Documented by: Levothyroxine Sodium (Synthroid) 50 mcg PO [facility] Last Admin: 11/14/18 08:10 Dose: 50 mcg Documented by: Lisinopril (Zestril) 5 mg PO DAILY [facility] Last Admin: 11/14/18 09:47 Dose: 5 mg Documented by: Metformin HCl (Glucophage) 1,000 mg PO [facility] Montelukast Sodium (Singular) 10 mg PO DAILY [facility] Last Admin: 11/14/18 09:47 Dose: 10 mg Documented by: Naloxone HCl (Narcan) 0.1 mg IV Q2MIN PRN PRN Reason: Opiate Reversal Ondansetron HCl (Zofran) 4 mg IV Q6HP PRN PRN Reason: Nausea And Vomiting [facility]) [facility] Last Admin: 11/14/18 08:10 Dose: 40 mg Documented by: Polyethylene Glycol (Miralax) 17 gm PO DAILY [facility] Last Admin: 11/14/18 09:48 Dose: Not Given Documented by: Potassium Chloride (Kdur) 10 meq PO [facility] Last Admin: 11/14/18 09:47 Dose: 10 meq Documented by: Prednisone (Prednisone) 20 mg PO [facility] Last Admin: 11/14/18 09:47 Dose: 20 mg Documented by: Sodium Chloride (Saline Flush) 10 ml IV Q8 [facility] Last Admin: 11/14/18 14:01 Dose: Not Given Documented by: Vancomycin HCl (Vancomycin Per Pharmacy) 1 order IV UD [facility]; Protocol Medical - PN: A/P - Time Spent With Patient Total time spent is greater than 50% in coordination of care (as documented) at patient's floor/unit and/or counseling patient: - Narrative A/P Narrative: A/P Acute Joint pain/ Left knee/ Left thumb first DIP. -LIkely gout, however infection cannot be ruled out, procalcitonin neg, culture are negative. On IV vanco and rocephin, ID consulted. Influenzae Pneuomnia -resolved, cxr shows atelectasis Fever -likely from gout, could be atelectasis, could be septic arthritis. ASD -outpatient Cardiology follow up Weakness -Rehab, treat the underlying etiology Chr pain -resume home pain medication regime DM -SSI for glucose control Anxiety -stable on buspar GERD -on ppi Hypothyroidism -stable on levothyroxine. DVT hep sq Medical - PN: Qual - VTE Deep Vein Thrombosis/Pulmonary Embolism Present on Admission: No
--- NOTE | 2018-11-14 14:16 | Internal Med Progress Note ---
Medical - PN: Subj Patient information: Note initiated : 11/14/18 at 2:13 pm Service Date, if different from initiated Date: [] Patient: Anne Rosado a 78 y/o F admitted on 11/12/18 for Confusion, Weakness. Chief Complaint: [] Interval history: Note for service on 11/13 Ms. Rosado is a 78 year old F recently discharged from this hospital to SNF, presents to the ER today for evaluation of pain in the left knee and left thumb that started today According to the patient she was doing well until yesterday, she woke up today with severe pain in her left knee as well as the left thumb, she was unable to move or stand on that leg. She was very weak and it was hurting her significantly to even put minimal weight on the left leg. The patient also had significant pain and tenderness on the left thumb. She therefore came to the hospital for further evaluation. The patient was admitted to the hospital with a diagnosis of pneumonia, influenza A, and a UTI, she completed a course of treatment, and was doing well. The patient does not have a history of gout. The patient denies any cough chest pain shortness of breath nausea vomiting abdominal pain, she has chronic dry mouth, denies any urinary complaint, she has chronic swelling in her lower extremities, she has bilateral erythema venous stasis on both her extremities right more than the left. On presentation to the hospital patient had fever, highest temperature 101.3, heart rate 71 blood pressure 118/53 saturating 90%, labs show hemoglobin of 12.2, WBC 9.4 platelets 204, troponin less than 0.01, lactic acid 1.9 ESR 54 CRP 1, sodium 139 potassium 4.0 bicarbonate 21 creatinine 1.1 glucose 199 Blood cultures were done, Chest x-ray shows mild airspace disease on the right side, chronic right hemidiaphragm elevation, likely atelectasis. X-ray of the left knee shows severe degenerative joint disease, and moderate tissue swelling. X-ray of the left hand shows severe DJD. Given the significant weakness, inability to ambulate the patient will be admitted to the hospital. At the time of admission however it is not certain of the patient has septic arthritis or just a gout flareup. Patient is to get aspiration of the left knee status of the patient with her inpatient versus observation will be determined after we get results from the synovial fluid analysis The patient is fully aware that she has severe arthritis in her joints, it seems was advised replacement in the past 11/13 Pt seen examined, no acute issues, pt still has pain in the left thumb and the left knee cultures neg ID consulted for further eval increase dose of prednisone to 20mg start on iv toradol for 4 doses 11/14 Patient seen and examined, no acute overnight events, she is able to move her thumb now, better. Cultures are negative, infectious disease senior health consultant has discontinued Rocephin advised to continue vancomycin for 1 more day. Creatinine bumped up to 1.4, patient will get IV fluids 1 L saline. Likely renal dysfunction secondary to Toradol use. Continue prednisone at a higher dose The patient had skin abscess, carbuncle on her back which was drained by infectious disease today ulcers were sent Pertinent ROS: Denies headache, dizziness Denies chest pain, palpitations Denies cough or shortness of breath Denies abdominal pain, nausea or vomiting. - Constitutional Vitals: Vital Signs Temp Pulse Resp BP Pulse Ox 98.1 F 75 20 110/56 90 11/14/18 11:33 11/14/18 11:33 11/14/18 11:33 11/14/18 11:33 11/14/18 11:33 Period Temp Pulse Resp BP Sys/Lee Pulse Ox Last 24 Hr 97.8 F-99.1 F 73-79 16-24 94-110/46-56 84-92 Intake and Output 11/14/18 11/14/18 11/14/18 05:59 13:59 21:59 Intake Total 750 600 Output Total 275 Balance 475 600 Intake & Output: Intake & Output 11/14/18 11/14/18 11/14/18 05:59 13:59 21:59 Intake Total 750 600 Output Total 275 Balance 475 600 Intake: Oral 750 GI Tube Flush 600 Output: Void Amount 275 Other: Meal Breakfast Percent of Meal Consumed 10 Feeding Ability Independent Urine Appearance Clear Clear Urine Color Dark Yellow Light Eve Urine Odor Strong Exam: Constitutional; Afebrile, cooperative, alert, not in distress. Respiratory system: Air Entry equal on both sides, No crackles or wheezing, no rhonchi. CVS- Rate rhythm regular, S1,S2 heard, no gallop, no rub. Abdomen- Soft nontender abdomen, no organomegaly, no tenderness, no guarding or rigidity, BODY PIERCER- AOOx3, moving all extremities, no gross focal deficit noted. Thumb and knee pain much better Medical - PN: Obj Da - Labs CBC & Chem 7: 11/14/18 04:30 11/14/18 04:30 Labs: Abnormal Lab Results 11/14/18 11/14/18 11/14/18 09:21 04:30 04:30 RBC 3.32 L Hgb 9.7 L Hct 29.1 L RDW 14.6 H Gran % 78.6 H Lymph % (Auto) 10.4 L Lymph # (Auto) 0.7 L Lymphocytes % RBC Morphology Ovalocytes ESR Chloride Anion Gap BUN 27 H Creatinine 1.4 H Glucose 161 H Uric Acid 11.3 H Calcium 8.4 L GGT C-Reactive Protein Synovial Neutrophils Vancomycin Trough 22.4 H* 11/13/18 11/13/18 11/12/18 04:00 04:00 18:08 RBC 3.62 L Hgb 10.5 L Hct 31.9 L RDW 15.8 H Gran % Lymph % (Auto) Lymph # (Auto) 1.3 L Lymphocytes % RBC Morphology Ovalocytes ESR Chloride Anion Gap BUN Creatinine Glucose 142 H Uric Acid 10.6 H Calcium GGT 37 H C-Reactive Protein Synovial Neutrophils 95 H Vancomycin Trough 11/12/18 11/12/18 11/12/18 12:43 12:42 12:37 RBC Hgb Hct RDW 15.5 H Gran % Lymph % (Auto) Lymph # (Auto) Lymphocytes % 13 L RBC Morphology Abnorm A Ovalocytes 1+ A ESR 54 H Chloride Anion Gap BUN Creatinine Glucose Uric Acid Calcium GGT C-Reactive Protein 1.0 H Synovial Neutrophils Vancomycin Trough 11/12/18 12:36 RBC Hgb Hct RDW Gran % Lymph % (Auto) Lymph # (Auto) Lymphocytes % RBC Morphology Ovalocytes ESR Chloride 94 L Anion Gap 17.0 H BUN 25 H Creatinine Glucose 199 H Uric Acid Calcium GGT C-Reactive Protein Synovial Neutrophils Vancomycin Trough Meds: Medications Acetaminophen (Tylenol) 650 mg PO Q6HP PRN PRN Reason: PAIN/FEVER > 101 Hydrocodone Bitart/Acetaminophen (Phenix 10/325mg) 1 tab PO QIDP PRN PRN Reason: Pain Last Admin: 11/13/18 20:22 Dose: 1 tab Documented by: Albuterol Sulfate (Ventolin) 2.5 mg NEB Q2HP PRN PRN Reason: Shortness Of Breath Albuterol Sulfate (Ventolin) 2.5 mg NEB TID [facility] Last Admin: 11/14/18 07:25 Dose: 2.5 mg Documented by: Atorvastatin Calcium (Lipitor) 40 mg PO [facility] Last Admin: 11/13/18 20:22 Dose: 40 mg Documented by: Bisacodyl (Dulcolax) 10 mg PO [facility] Last Admin: 11/13/18 20:21 Dose: 10 mg Documented by: Bisoprolol Fumarate (Zebeta) 5 mg PO DAILY [facility] Last Admin: 11/14/18 09:47 Dose: 5 mg Documented by: Dextrose (Dextrose 50%) 0 ml IV UD PRN PRN Reason: Hypoglycemia Diagnostic Test (Pha) (Accu-Chek) 1 each FS [facility] Last Admin: 11/14/18 11:47 Dose: 1 each Documented by: Furosemide (Lasix) 80 mg PO DAILY [facility] Last Admin: 11/14/18 10:53 Dose: Not Given Documented by: Gabapentin (Neurontin) 600 mg PO TID [facility] Last Admin: 11/14/18 09:47 Dose: 600 mg Documented by: Glucose (Insta-Glucose) 15 gm PO PRN PRN PRN Reason: Hypoglycemia Heparin Sodium (Porcine) (Heparin) 5,000 unit SQ Q12 [facility] Last Admin: 11/14/18 09:48 Dose: 5,000 unit Documented by: Sodium Chloride (Sodium Chloride 0.9%) 1,000 mls @ 100 mls/hr IV .Q10H [facility] Stop: 11/14/18 18:29 Last Admin: 11/14/18 09:41 Dose: 100 mls/hr Documented by: Insulin Human Lispro (Humalog) 0 unit SQ [facility]; Protocol Last Admin: 11/14/18 11:55 Dose: 2 unit Documented by: Lactobacillus Rhamnosus (Culturelle) 1 cap PO DAILY [facility] Last Admin: 11/14/18 09:47 Dose: 1 cap Documented by: Levothyroxine Sodium (Synthroid) 50 mcg PO [facility] Last Admin: 11/14/18 08:10 Dose: 50 mcg Documented by: Lisinopril (Zestril) 5 mg PO DAILY [facility] Last Admin: 11/14/18 09:47 Dose: 5 mg Documented by: Metformin HCl (Glucophage) 1,000 mg PO [facility] Montelukast Sodium (Singular) 10 mg PO DAILY [facility] Last Admin: 11/14/18 09:47 Dose: 10 mg Documented by: Naloxone HCl (Narcan) 0.1 mg IV Q2MIN PRN PRN Reason: Opiate Reversal Ondansetron HCl (Zofran) 4 mg IV Q6HP PRN PRN Reason: Nausea And Vomiting Pantoprazole Sodium (Protonix) 40 mg PO [facility] Last Admin: 11/14/18 08:10 Dose: 40 mg Documented by: Polyethylene Glycol (Miralax) 17 gm PO DAILY [facility] Last Admin: 11/14/18 09:48 Dose: Not Given Documented by: Potassium Chloride (Kdur) 10 meq PO [facility] Last Admin: 11/14/18 09:47 Dose: 10 meq Documented by: Prednisone (Prednisone) 20 mg PO [facility] Last Admin: 11/14/18 09:47 Dose: 20 mg Documented by: Sodium Chloride (Saline Flush) 10 ml IV Q8 [facility] Last Admin: 11/14/18 14:01 Dose: Not Given Documented by: Vancomycin HCl (Vancomycin Per Pharmacy) 1 order IV UD [facility]; Protocol Medical - PN: A/P - Time Spent With Patient Total time spent is greater than 50% in coordination of care (as documented) at patient's floor/unit and/or counseling patient: - Narrative A/P Narrative: A/P Acute Joint pain/ Left knee/ Left thumb first DIP. 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 Influenzae Pneuomnia -resolved, cxr shows atelectasis Fever -likely from gout, could be atelectasis, could be septic arthritis. Patient back had a small abscess, which could have contributed to fever ASD -outpatient Cardiology follow up Acute kidney injury -Creatinine 1.4, IV fluids today trend renal function Weakness -Rehab, treat the underlying etiology improving with pain management, continue rehab Chr pain -resume home pain medication regime DM -SSI for glucose control Anxiety -stable on buspar GERD -on ppi Hypothyroidism -stable on levothyroxine. DVT hep sq If remains stable will discharge to snf tomorrow Medical - PN: Qual - VTE Deep Vein Thrombosis/Pulmonary Embolism Present on Admission: No
--- NOTE | 2018-11-14 16:28 | Infectious Disease Prog Note ---
Subjective Patient information: Note initiated : 11/14/18 at 4:24 pm Service Date, if different from initiated Date: [] Patient: Anne Rosado 78 y/o F admitted on 11/12/18 for Confusion, Weakness. Chief Complaint: [] Interval history: Patient was feeling slightly better than yesterday in terms of her left knee bob n. She felt much better in terms of her left thumb pain. Denies any nausea, vomiting, diarrhea, fever, chills. The nurse and social service worker alerted about patient complaining of upper back pain. Shared CAT scan findings from yesterday and clinical impression about whether or not there is an infection Objective Objective Narrative: Alert, oriented x3 No thrush Chest clear to auscultation Heart sounds are normal, possible 2 out of 6 ejection systolic murmur at right second intercostal space Left thumb: No swelling or redness. Minimal tenderness on movement Left knee: Swollen compared to right side. steep tender at certain locations, pain on movement Bilateral pedal edema with some dependent redness in the lower legs Back: No focal tenderness over vertebral spine except for any area of redness with 2 openings with drainage of pus, exquisitely tender, probe to bone negative, no tunneling on exploration - Vital Signs Vital signs: Vital Signs Temp Pulse Pulse Resp BP Pulse Ox 11/14/18 16:00 36.4 C 81 16 106/55 91 11/14/18 15:10 67 16 11/14/18 11:33 36.7 C 75 20 110/56 90 11/14/18 07:44 73 18 90 11/14/18 07:20 73 16 11/14/18 07:13 36.6 C 73 18 109/52 91 11/14/18 04:02 36.6 C 76 22 104/49 90 11/13/18 23:52 36.8 C 74 24 H 96/53 90 11/13/18 20:23 36.6 C 79 24 H 94/54 92 11/13/18 19:25 77 24 H 84 L Intake and Output 11/14/18 11/14/18 11/14/18 05:59 13:59 21:59 Intake Total 750 600 100 Output Total 275 300 Balance 475 300 100 Intake: Oral 750 100 GI Tube Flush 600 Output: Urine Catheter Amount 300 Void Amount 275 Other: Meal Breakfast Lunch Percent of Meal Consumed 10 100% Feeding Ability Independent Urine Appearance Clear Clear Urine Color Dark Yellow Light Eve Urine Odor Strong Stool Size Small Stool Color Brown Stool Consistency Soft # Bowel Movements 1 Intake & Output: Intake & Output 11/14/18 11/14/18 11/14/18 05:59 13:59 21:59 Intake Total 750 600 100 Output Total 275 300 Balance 475 300 100 Intake: Oral 750 100 GI Tube Flush 600 Output: Urine Catheter Amount 300 Void Amount 275 Other: Meal Breakfast Lunch Percent of Meal Consumed 10 100% Feeding Ability Independent Urine Appearance Clear Clear Urine Color Dark Yellow Light Eve Urine Odor Strong Stool Size Small Stool Color Brown Stool Consistency Soft # Bowel Movements 1 - Lab 11/14/18 04:30 11/14/18 04:30 Most recent lab results Calcium 8.4 mg/dl (8.6-10.4) L 11/14/18 04:30 Phosphorus 4.1 mg/dL (2.7-4.5) 11/14/18 04:30 Magnesium 1.6 mg/dL (1.6-2.5) 11/14/18 04:30 Microbiology 11/12/18 13:03 Blood Blood Culture - Preliminary 11/12/18 12:34 Blood Blood Culture - Preliminary 11/14/18 09:50 Back - Upper Gram Stain - Final 11/12/18 18:08 Synovial Fluid - Knee Gram Stain - Final 11/12/18 18:08 Synovial Fluid - Knee Body Fluid Culture - Final 11/12/18 18:31 Nose MRSA (PCR) - Final Medications Active Medications: Acetaminophen (Tylenol) 650 mg PO Q6HP PRN PRN Reason: PAIN/FEVER > 101 Hydrocodone Bitart/Acetaminophen ([place] 10/325mg) 1 tab PO QIDP PRN PRN Reason: Pain Last Admin: 11/13/18 20:22 Dose: 1 tab Documented by: Admin: 11/12/18 23:16 Dose: 1 tab Documented by: DALTON Albuterol Sulfate (Ventolin) 2.5 mg NEB Q2HP PRN PRN Reason: Shortness Of Breath Albuterol Sulfate (Ventolin) 2.5 mg NEB TID [facility] Last Admin: 11/14/18 15:10 Dose: 2.5 mg Documented by: [id number] Admin: 11/14/18 07:25 Dose: 2.5 mg Documented by: [email or web address] Admin: 11/13/18 21:53 Dose: Not Given Documented by: [email or web address] Non-Admin Reason: Patient Asleep Admin: 11/13/18 14:38 Dose: 2.5 mg Documented by: Admin: 11/13/18 07:25 Dose: Not Given Documented by: [email or web address] Non-Admin Reason: Patient Asleep Admin: 11/12/18 21:15 Dose: 2.5 mg Documented by: JENNIFER Atorvastatin Calcium (Lipitor) 40 mg PO [facility] Last Admin: 11/13/18 20:22 Dose: 40 mg Documented by: Admin: 11/12/18 20:33 Dose: 40 mg Documented by: DALTON Bisacodyl (Dulcolax) 10 mg PO [facility] Last Admin: 11/13/18 20:21 Dose: 10 mg Documented by: Admin: 11/12/18 20:34 Dose: 10 mg Documented by: DALTON Bisoprolol Fumarate (Zebeta) 5 mg PO DAILY [facility] Last Admin: 11/14/18 09:47 Dose: 5 mg Documented by: [email or web address] Admin: 11/13/18 09:13 Dose: 5 mg Documented by: [id number] Dextrose (Dextrose 50%) 0 ml IV UD PRN PRN Reason: Hypoglycemia Diagnostic Test (Pha) (Accu-Chek) 1 each FS ACHS [facility] Last Admin: 11/14/18 11:47 Dose: 1 each Documented by: Admin: 11/14/18 08:11 Dose: 1 each Documented by: [email or web address] Admin: 11/13/18 20:24 Dose: 1 each Documented by: Admin: 11/13/18 17:27 Dose: 1 each Documented by: [id number] Admin: 11/13/18 11:24 Dose: 1 each Documented by: [id number] Admin: 11/13/18 06:50 Dose: 1 each Documented by: [id number] Admin: 11/12/18 19:50 Dose: 1 each Documented by: DALTON Furosemide (Lasix) 80 mg PO DAILY [facility] Last Admin: 11/14/18 10:53 Dose: Not Given Documented by: [email or web address] Non-Admin Reason: Clinical Judgement Comments: Spoke with Dr. Sosa and to hold this dose of Lasix due to increase in kidney function and giving iv fluids Admin: 11/13/18 09:13 Dose: 80 mg Documented by: [id number] Gabapentin (Neurontin) 600 mg PO TID [facility] Last Admin: 11/14/18 14:47 Dose: 600 mg Documented by: [facility] Admin: 11/14/18 09:47 Dose: 600 mg Documented by: [facility] Admin: 11/13/18 20:22 Dose: 600 mg Documented by: Admin: 11/13/18 15:28 Dose: 600 mg Documented by: [id number] Admin: 11/13/18 09:13 Dose: 600 mg Documented by: [email or web address] Admin: 11/12/18 20:34 Dose: 600 mg Documented by: DALTON Glucose (Insta-Glucose) 15 gm PO PRN PRN PRN Reason: Hypoglycemia Heparin Sodium (Porcine) (Heparin) 5,000 unit SQ Q12 [facility] Last Admin: 11/14/18 09:48 Dose: 5,000 unit Documented by: [facility] Admin: 11/13/18 20:21 Dose: 5,000 unit Documented by: Admin: 11/13/18 09:13 Dose: 5,000 unit Documented by: [facility] Admin: 11/12/18 20:34 Dose: 5,000 unit Documented by: DALTON Sodium Chloride (Sodium Chloride 0.9%) 1,000 mls @ 100 mls/hr IV .Q10H [facility] Stop: 11/14/18 18:29 Last Admin: 11/14/18 09:41 Dose: 100 mls/hr Documented by: [facility] Insulin Human Lispro (Humalog) 0 unit SQ ACHS [facility]; Protocol Last Admin: 11/14/18 11:55 Dose: 2 unit Documented by: Admin: 11/14/18 08:11 Dose: Not Given Documented by: [facility] Non-Admin Reason: No Coverage Needed Admin: 11/13/18 20:29 Dose: 4 unit Documented by: Admin: 11/13/18 17:27 Dose: 3 unit Documented by: [id number] Admin: 11/13/18 11:30 Dose: 3 unit Documented by: [id number] Admin: 11/13/18 08:02 Dose: 1 unit Documented by: [id number] Admin: 11/12/18 19:55 Dose: Not Given Documented by: DALTON Non-Admin Reason: pt not eating dinner Lactobacillus Rhamnosus (Culturelle) 1 cap PO DAILY [facility] Last Admin: 11/14/18 09:47 Dose: 1 cap Documented by: [email or web address] Admin: 11/13/18 09:13 Dose: 1 cap Documented by: [id number] Levothyroxine Sodium (Synthroid) 50 mcg PO [facility] Last Admin: 11/14/18 08:10 Dose: 50 mcg Documented by: [email or web address] Admin: 11/13/18 08:02 Dose: 50 mcg Documented by: [id number] Lisinopril (Zestril) 5 mg PO DAILY [facility] Last Admin: 11/14/18 09:47 Dose: 5 mg Documented by: [email or web address] Admin: 11/13/18 09:13 Dose: 5 mg Documented by: [id number] Metformin HCl (Glucophage) 1,000 mg PO [facility] Montelukast Sodium (Singular) 10 mg PO DAILY [facility] Last Admin: 11/14/18 09:47 Dose: 10 mg Documented by: [email or web address] Admin: 11/13/18 09:13 Dose: 10 mg Documented by: [id number] Naloxone HCl (Narcan) 0.1 mg IV Q2MIN PRN PRN Reason: Opiate Reversal Ondansetron HCl (Zofran) 4 mg IV Q6HP PRN PRN Reason: Nausea And Vomiting Pantoprazole Sodium (Protonix) 40 mg PO [facility] Last Admin: 11/14/18 08:10 Dose: 40 mg Documented by: [email or web address] Admin: 11/13/18 08:02 Dose: 40 mg Documented by: [id number] Polyethylene Glycol (Miralax) 17 gm PO DAILY [facility] Last Admin: 11/14/18 09:48 Dose: Not Given Documented by: [email or web address] Non-Admin Reason: Patient Refused Admin: 11/13/18 09:14 Dose: 17 gm Documented by: [id number] Potassium Chloride (Kdur) 10 meq PO [facility] Last Admin: 11/14/18 09:47 Dose: 10 meq Documented by: [email or web address] Admin: 11/13/18 09:13 Dose: 10 meq Documented by: [id number] Prednisone (Prednisone) 20 mg PO [facility] Last Admin: 11/14/18 09:47 Dose: 20 mg Documented by: [facility] Sodium Chloride (Saline Flush) 10 ml IV Q8 [facility] Last Admin: 11/14/18 14:01 Dose: Not Given Documented by: [email or web address] Non-Admin Reason: Continuous IV Admin: 11/14/18 05:50 Dose: 10 ml Documented by: Admin: 11/13/18 20:22 Dose: 10 ml Documented by: Admin: 11/13/18 12:11 Dose: 10 ml Documented by: [id number] Admin: 11/13/18 05:36 Dose: 10 ml Documented by: Admin: 11/12/18 20:34 Dose: Not Given Documented by: DALTON Non-Admin Reason: Continuous IV Admin: 11/12/18 19:50 Dose: 10 ml Documented by: DALTON Vancomycin HCl (Vancomycin Per Pharmacy) 1 order IV UD [facility]; Protocol Assessment and Plan - Narrative A/P Narrative: Assessment: 1. Acute arthritis involving left knee and first DIP and CMC joints: Clinically, it is uncommon to have those 2 joints involved at the same time unless patient was bacteremic which does not seem so at this moment. Preliminary workup negative for septic arthritis [white cell count, Gram stain, imaging]: Cultures negative so far - CT of left hand and left knee today suggestive of severe degenerative osteoarthritis with erosive changes inv multiple joints of left hand and no effusion, and basic degenerative changes and small effusion in left knee. No concerns for septic arthritis or osteomyelitis 2. 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 Carbuncle over cervical thoracic spine area without any deeper involvement Recommendations: Continue IV vancomycin per pharmacy assisted dosing, day 3 Stop IV ceftriaxone Await synovial fluid cultures, blood cultures. If negative by tomorrow; will stop IV vancomycin. - s/p bedside pressure assisted drainage and saline irrigation Once patient is off vancomycin she could be started on oral doxycycline 100 mg twice daily for 3 more days to finish antibiotic course for carbuncle in the back will follow Steven Merino MD Infectious diseases
--- NOTE | 2018-11-14 16:33 | Procedure Note ---
Procedures - Abscess I/D Consent obtained: verbal consent Date of Procedure: 11/14/18 (assisted by Yessy (RN)Blanca (wound care nurse). Procedure took about 10 min. Cultures from the pus were sent.) Site: back Sedation/analgesia: none, other (2 mg of IV morphine was given) Technique: other (Pressure assisted drainage) Amount of fluid: 10 (pus drainage, thick consistency) Irrigation: Yes (normal saline) Packing used?: none (sponataneous drainage) Complications: bleeding (5 ml, mild, stopped on its own)
[2018-11-14] MEDS: ATORVASTATIN 20 MG TABLET PO SCH (20:56)
[2018-11-14] MEDS: BISACODYL 5 MG TABLET PO SCH (20:56)
[2018-11-15] MEDS: 0.9 % SODIUM CHLORIDE 10 ML SYRINGE IV SCH ×2 (04:45→06:50)
[2018-11-15 06:38] LABS: Basophils # (Auto) 0 K/mcL (0.0-0.3); Basophils % (Auto) 0.5 % (0.0-2.0); Eosinophils # (Auto) 0.1 K/mcL (0.0-0.7); Eosinophils % (Auto) 2.1 % (0.0-7.0); Granulocytes % (Auto) 74.3 % (38.0-78.0); Lymphocytes # (Auto) 0.9 K/mcL (1.5-4.8); Lymphocytes % (Auto) 14.7 % (15.5-49.0); Mean Cell Volume 88.2 fL (80.0-100.0); Monocytes # (Auto) 0.5 K/mcL (0.1-0.9); Monocytes % (Auto) 8.4 % (1.0-12.0); Platelet Count 168 K/mcL (140-440); RBC 3.27 M/mcL (4.00-5.20); Red Cell Distribution Width 15.3 % (11.5-14.5)
[2018-11-15] MEDS: LEVOTHYROXINE 50 MCG TABLET PO SCH (06:55)
[2018-11-15] MEDS: PANTOPRAZOLE 40 MG TABLET PO SCH (06:55)
[2018-11-15] MEDS: INSULIN LISPRO 1 UNIT/0.01 ML UNIT SQ SCH ×2 (06:59→11:35)
[2018-11-15 07:02] LABS: Vancomycin,Random 13.4 ug/mL
[2018-11-15 07:13] LABS: ALT/SGPT 9 U/l (0-40); Albumin 3.1 gm/dL (3.2-5.2); Alkaline Phosphatase 42 U/L (39-117); Bilirubin,Direct < 0.2 mg/dL (0.0-0.3); Blood Urea Nitrogen 35 mg/dl (8-23); Gamma Glutamyl Transpeptidase 30 U/L (5-36); Uric Acid 10.8 mg/dL (2.5-8.0)
[2018-11-15] MEDS ORDERED: metFORMIN 500 MG TABLET PO SCH (08:00)
[2018-11-15] MEDS: POTASSIUM CHLORIDE 10 MEQ TABLET PO SCH (08:24)
[2018-11-15] MEDS: predniSONE 20 MG TABLET PO SCH (08:24)
[2018-11-15] MEDS ORDERED: VANCOMYCIN 1,000 MG in 0.9 % SODIUM CHLORIDE 250 ML IV SCH (09:00)
[2018-11-15] MEDS: FUROSEMIDE 80 MG TABLET PO SCH (09:06)
[2018-11-15] MEDS: BISOPROLOL 5 MG TABLET PO SCH (09:06)
[2018-11-15] MEDS: GABAPENTIN 300 MG CAPSULE PO SCH (09:06)
[2018-11-15] MEDS: LACTOBACILLUS 1 CAPSULE PO SCH (09:06)
[2018-11-15] MEDS: MONTELUKAST 10 MG TABLET PO SCH (09:06)
[2018-11-15] MEDS: LISINOPRIL 5 MG TABLET PO SCH (09:06)
[2018-11-15] MEDS: HEPARIN 5,000 UNIT/ML VIAL SQ SCH (09:07)
[2018-11-15] MEDS: POLYETHYLENE GLYCOL 3350 17 GM PACKET PO SCH (09:07)
--- NOTE | 2018-11-15 10:33 | Discharge Summary ---
Medical - DS: Prov Patient information: Note initiated : 11/15/18 at 10:28 am Service Date, if different from initiated Date: [] Patient: Anne Rosado 78 y/o F admitted on 11/12/18 for Confusion, Weakness. Chief Complaint: [] Date of admission: 11/12/18 18:04 Discharge date: 11/15/18 Primary care physician: Hans Arias Admitting clinician: Ramses Sosa Consults: 11/12/18 15:21 Consult to Physician [CONS] Stat Comment: Consulting Provider: Ramses Sosa Reason For Exam: Physician to Consult 11/13/18 13:00 Consult to Infectious Disease [CONS] Routine Comment: arthritis Consulting Provider: Steven Merino Reason For Exam: Physician to Consult Discharging clinician: Ramses Sosa Medical - DS: Meds - Discharge Medications Prescriptions: Doxycycline Hyclate 100 mg PO BID #6 tablet.orl HYDROcodone/APAP 10/325MG [[place] 10-325Mg] 1 tab PO QIDP PRN #30 tab PRN Reason: Pain predniSONE [Prednisone] 20 mg PO QAMCC #14 tab Active and Home Medications: Home Medications Albuterol Sulfate [Proair Hfa] 1 - 2 puff INH Q4HP PRN 06/01/15 [History Confirmed 11/13/18 Last Taken 06/04/15] Bisacodyl [Dulcolax] 10 mg PO HSP PRN 06/01/15 [History Confirmed 11/13/18 Last Taken 06/04/15] Bisoprolol Fumarate [Zebeta] 5 mg PO DAILY 06/01/15 [History Confirmed 11/12/18 Last Taken 06/04/15] Budesonide [Pulmicort] 0.5 mg INH BID 06/01/15 [History Confirmed 11/13/18 Last Taken 06/04/15] Gabapentin [Neurontin] 600 mg PO TID 06/01/15 [History Confirmed 11/12/18 Last Taken 06/04/15] Levothyroxine Sodium [Synthroid] 50 mcg PO QAMAC 06/01/15 [History Confirmed 11/13/18 Last Taken 06/04/15] Montelukast [Singular] 10 mg PO DAILY 06/01/15 [History Confirmed 11/12/18 Last Taken 06/04/15] Polyethylene Glycol 3350 [Miralax] 17 gm PO DAILYP PRN 06/01/15 [History Confirmed 11/13/18 Last Taken 06/04/15] metFORMIN HCL [Glucophage] 1,000 mg PO QAMCC 06/01/15 [History Confirmed 11/13/18 Last Taken 06/04/15] Atorvastatin [Lipitor] 40 mg PO HS 10/28/18 [History Confirmed 11/12/18 Last Taken Unknown] Lisinopril [Zestril] 5 mg PO DAILY 10/28/18 [History Confirmed 11/12/18 Last Taken Unknown] Albuterol Sulfate [Ventolin] 2.5 mg NEB Q8HP PRN 10/29/18 [History Confirmed 11/13/18 Last Taken Unknown] Erythromycin Ophth Oint [Ilotycin Ophth Oint] 1 ribbon OD HS 10/29/18 [History Confirmed 11/12/18 Last Taken Unknown] Furosemide [Lasix] 80 mg PO DAILY 10/29/18 [History Confirmed 11/12/18 Last Taken Unknown] Lactobacillus Acidophilus [Acidophilus Probiotic] 1 cap PO DAILY 10/29/18 [History Confirmed 11/13/18 Last Taken Unknown] Propylene Glycol/Peg 400 [Systane 0.3-0.4% Eye Drops] 1 gtt OP PRN PRN 10/29/18 [History Confirmed 11/12/18 Last Taken Unknown] conjugated estrogens 0.625 mg/gram vaginal cream 1 applic VAGINAL DAILY g 11/06/18 [History Confirmed 11/12/18 Last Taken Unknown] Esomeprazole Magnesium [Nexium] 40 mg PO QAMAC 11/12/18 [History Confirmed 11/13/18 Last Taken Unknown] predniSONE [Prednisone Intensol] 4.5 mg PO DAILY 11/12/18 [History Confirmed 11/12/18 Last Taken Unknown] Bisacodyl [Dulcolax] 10 mg ME DAILYP PRN 11/13/18 [History Confirmed 11/13/18 Last Taken Unknown] Clobetasol Propionate [Temovate Cream 0.05%] 1 dose TOPICAL HS 11/13/18 [History Confirmed 11/13/18 Last Taken Unknown] Na Phos,M-B/Na Phos,Di-Ba [Fleets Adult] 1 dose ME DAILYP PRN 11/13/18 [History Confirmed 11/13/18 Last Taken Unknown] Ondansetron HCl [Zofran] 4 mg PO Q6HP PRN 11/13/18 [History Confirmed 11/13/18 Last Taken Unknown] Medical - DS: Hosp Hospital course: Ms. Rosado is a 78 year old F recently discharged from this hospital to [facility], presents to the ER today for evaluation of pain in the left knee and left thumb that started today According to the patient she was doing well until yesterday, she woke up today with severe pain in her left knee as well as the left thumb, she was unable to move or stand on that leg. She was very weak and it was hurting her significantly to even put minimal weight on the left leg. The patient also had significant pain and tenderness on the left thumb. She therefore came to the hospital for further evaluation. The patient was admitted to the hospital with a diagnosis of pneumonia, influenza A, and a UTI, she completed a course of treatment, and was doing well. The patient does not have a history of gout. The patient denies any cough chest pain shortness of breath nausea vomiting abdominal pain, she has chronic dry mouth, denies any urinary complaint, she has chronic swelling in her lower extremities, she has bilateral erythema venous stasis on both her extremities right more than the left. On presentation to the hospital patient had fever, highest temperature 101.3, heart rate 71 blood pressure 118/53 saturating 90%, labs show hemoglobin of 12.2, WBC 9.4 platelets 204, troponin less than 0.01, lactic acid 1.9 ESR 54 CRP 1, sodium 139 potassium 4.0 bicarbonate 21 creatinine 1.1 glucose 199 Blood cultures were done, Chest x-ray shows mild airspace disease on the right side, chronic right hemidiaphragm elevation, likely atelectasis. X-ray of the left knee shows severe degenerative joint disease, and moderate tissue swelling. X-ray of the left hand shows severe DJD. Given the significant weakness, inability to ambulate the patient will be admitted to the hospital. At the time of admission however it is not certain of the patient has septic arthritis or just a gout flareup. Patient is to get aspiration of the left knee status of the patient with her inpatient versus observation will be determined after we get results from the synovial fluid analysis The patient is fully aware that she has severe arthritis in her joints, it seems was advised replacement in the past 11/13 Pt seen examined, no acute issues, pt still has pain in the left thumb and the left knee cultures neg ID consulted for further eval increase dose of prednisone to 20mg start on iv toradol for 4 doses 11/14 Patient seen and examined, no acute overnight events, she is able to move her thumb now, better. Cultures are negative, infectious disease application packaging consultant has discontinued Rocephin advised to continue vancomycin for 1 more day. Creatinine bumped up to 1.4, patient will get IV fluids 1 L saline. Likely renal dysfunction secondary to Toradol use. Continue prednisone at a higher dose The patient had skin abscess, carbuncle on her back which was drained by infectious disease today ulcers were sent 11/15 Patient seen examined, no acute overnight issues, tolerating po diet well, feels much better, joint pain improved, labs stable,not on any oxygen. stable for discharge back to SNF In Summary Patient admitted from rehab center for left knee and left thumb pain, there was joint swelling and effusion. CT was negative for septic arthritis or ostium mellitus, left knee was tapped, although crystals were not there patient did have 95% neutrophils, total neutrophil count was however less than 10,000. Microbiology was negative. Initially treated with Rocephin and vancomycin, cultures remain negative and antibiotics were stopped. Infectious disease did evaluate the patient. Patient also had a small abscess on her back that was drained by infectious disease. Patient will be on oral doxycycline for same for another 3 days. 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 Her uric acid level is elevated. Patient is on prednisone for her asthma, however takes 4.5 mg as per her art specialist. Given she has multiple joint involvement and is already on steroids IV increase her dose of prednisone to 20 mg this helped resolve the patient's arthropathy. She will be on 20 mg over 2 weeks then 50 mg over 2 weeks then 10 mg of 2 weeks and then 5 mg and then continue on her usual taper schedule. No other changes in her chronic home medications have been done Discharge diagnosis: Acute Gouty arthritis, Skin abscess - Time Spent with Patient Total time spent providing and/or coordinating discharge services: Greater than 30 minutes Medical - DS: Exam - Constitutional Vitals: Vital Signs Temp Pulse Pulse Resp BP Pulse Ox 11/15/18 06:50 98.0 F 16 100/50 91 11/15/18 04:15 98.3 F 65 16 96/49 93 11/14/18 23:24 97.5 F 70 18 93/54 94 11/14/18 21:07 67 18 92 11/14/18 21:06 69 18 11/14/18 19:16 97.7 F 82 20 93/53 91 11/14/18 16:00 97.5 F 81 16 106/55 91 11/14/18 15:10 67 16 11/14/18 11:33 98.1 F 75 20 110/56 90 Intake and Output 11/14/18 11/15/18 11/15/18 21:59 05:59 13:59 Intake Total 2290 400 Output Total 310 150 Balance 2290 90 -150 Intake: IV 1000 Sodium Chloride 0.9% 1,000 ml @ 1000 100 mls/hr IV .Q10H [facility] Rx#: [id number] Oral 1290 400 Output: Void Amount 310 150 Other: Meal Dinner Percent of Meal Consumed 100% Urine Appearance Clear Clear Urine Color Bright Yellow Bright Yellow Stool Size Small Small Stool Color Brown Brown Stool Consistency Soft Soft Formed # Bowel Movements 1 Weight 199 lb 8 oz Additional comments: Constitutional; Afebrile, cooperative, alert, not in distress. Respiratory system: Air Entry equal on both sides, No crackles or wheezing, no rhonchi. CVS- Rate rhythm regular, S1,S2 heard, no gallop, no rub. Abdomen- Soft nontender abdomen, no organomegaly, no tenderness, no guarding or rigidity, LICENSED WEIGHER- AOOx3, moving all extremities, no gross focal deficit noted. Medical - DS: Data Labs on day of discharge: Labs from last 24 hours 11/15/18 11/15/18 11/15/18 05:00 05:00 05:00 WBC 6.1 RBC 3.27 L Hgb 9.5 L Hct 28.8 L MCV 88.2 MCH 29.1 MCHC 33.0 RDW 15.3 H Plt Count 168 MPV 9.4 Gran % 74.3 Lymph % (Auto) 14.7 L [place] % (Auto) 8.4 Eos % (Auto) 2.1 Baso % (Auto) 0.5 Gran # 4.5 Lymph # (Auto) 0.9 L [place] # (Auto) 0.5 Eos # (Auto) 0.1 Baso # (Auto) 0 Sodium 136 Potassium 4.3 Chloride 95 L Carbon Dioxide 26 Anion Gap 15.0 BUN 35 H Creatinine 1.2 H GFR Calculation 43 Glucose 177 H Uric Acid 10.8 H Calcium 8.3 L Phosphorus 4.0 Magnesium 1.9 Total Bilirubin 0.3 Direct Bilirubin < 0.2 GGT 30 AST 12 ALT 9 Alkaline Phosphatase 42 Lactate Dehydrogenase 212 Total Protein 6.3 Albumin 3.1 L Globulin 3.2 Albumin/Globulin Ratio 1.0 Triglycerides 101 Vancomycin Trough Random Vancomycin 13.4 Vancomycin Dose Not Reportable Vanco Last Dose Time Not Reportable 11/14/18 09:21 WBC RBC Hgb Hct MCV MCH MCHC RDW Plt Count MPV Gran % Lymph % (Auto) [place] % (Auto) Eos % (Auto) Baso % (Auto) Gran # Lymph # (Auto) [place] # (Auto) Eos # (Auto) Baso # (Auto) Sodium Potassium Chloride Carbon Dioxide Anion Gap BUN Creatinine GFR Calculation Glucose Uric Acid Calcium Phosphorus Magnesium Total Bilirubin Direct Bilirubin GGT AST ALT Alkaline Phosphatase Lactate Dehydrogenase Total Protein Albumin Globulin Albumin/Globulin Ratio Triglycerides Vancomycin Trough 22.4 H* Random Vancomycin Vancomycin Dose Vanco Last Dose Time Preliminary micro results at discharge 11/14/18 16:21 Stool Culture - Preliminary Stool 11/14/18 09:50 Wound Culture - Preliminary Back - Upper 11/12/18 13:03 Blood Culture - Preliminary Blood 11/12/18 12:34 Blood Culture - Preliminary Blood Medical - DS: A/P - Patient/Caregiver Discharge Instructions Activity: as per physical therapy Diet: Regular Diet - Follow up Plan Follow up with: Hans Arias MD [Primary Care Provider] - Disposition: Xfer SNF Prognosis: Good Rehab Potential: Good I certify that the patient requires SNF services: Yes Overall status at discharge: patient is progressing back to baseline Medical - DS: Qual - VTE Deep Vein Thrombosis/Pulmonary Embolism Present on Admission: No
[2018-11-15] MEDS: ALBUTEROL SULFATE 2.5 MG/3 ML NEBULIZER NEB SCH (10:39)
--- NOTE | 2018-11-15 10:40 | Infectious Disease Prog Note ---
Subjective Patient information: Note initiated : 11/15/18 at 10:15 am Service Date, if different from initiated Date: [] Patient: Anne Rosado 78 y/o F admitted on 11/12/18 for Confusion, Weakness. Chief Complaint: [] Interval history: Pt feels much better. Sitting in chair, eating her breakfast. Denied any back p ain (like yesterday), fever, chills, n/v/d. Reports that pain in both left thumb and left knee is much better. Discussed with her plans to do 3 days of PO Doxycycline twice daily. Voiced understanding. Objective Objective Narrative: ao x 3, in nad no thrush chest cta s1 s2 normnal, 2/6 ESM at rt 2nd ICS bs ++, distended, non tender the back skin lesion looks much better with minimal redness/tenderness, no drainage on pressure the left hand and left knee: no tenderness on palpation, passive and active movement at the joint + pedal edema - Vital Signs Vital signs: Vital Signs Temp Pulse Pulse Resp BP Pulse Ox 11/15/18 06:50 36.7 C 16 100/50 91 11/15/18 04:15 36.8 C 65 16 96/49 93 11/14/18 23:24 36.4 C 70 18 93/54 94 11/14/18 21:07 67 18 92 11/14/18 21:06 69 18 11/14/18 19:16 36.5 C 82 20 93/53 91 11/14/18 16:00 36.4 C 81 16 106/55 91 11/14/18 15:10 67 16 11/14/18 11:33 36.7 C 75 20 110/56 90 Intake and Output 11/14/18 11/15/18 11/15/18 21:59 05:59 13:59 Intake Total 2290 400 Output Total 310 150 Balance 2290 90 -150 Intake: IV 1000 Sodium Chloride 0.9% 1,000 ml @ 1000 100 mls/hr IV .Q10H [facility] Rx#: [id number] Oral 1290 400 Output: Void Amount 310 150 Other: Meal Dinner Percent of Meal Consumed 100% Urine Appearance Clear Clear Urine Color Bright Yellow Bright Yellow Stool Size Small Small Stool Color Brown Brown Stool Consistency Soft Soft Formed # Bowel Movements 1 Weight 90.492 kg Intake & Output: Intake & Output 11/14/18 11/15/18 11/15/18 21:59 05:59 13:59 Intake Total 2290 400 Output Total 310 150 Balance 2290 90 -150 Weight 90.492 kg Intake: IV 1000 Sodium Chloride 0.9% 1,000 ml @ 1000 100 mls/hr IV .Q10H [facility] Rx#: [id number] Oral 1290 400 Output: Void Amount 310 150 Other: Meal Dinner Percent of Meal Consumed 100% Urine Appearance Clear Clear Urine Color Bright Yellow Bright Yellow Stool Size Small Small Stool Color Brown Brown Stool Consistency Soft Soft Formed # Bowel Movements 1 - Lab 11/15/18 05:00 11/15/18 05:00 Most recent lab results Calcium 8.3 mg/dl (8.6-10.4) L 11/15/18 05:00 Phosphorus 4.0 mg/dL (2.7-4.5) 11/15/18 05:00 Magnesium 1.9 mg/dL (1.6-2.5) 11/15/18 05:00 Microbiology 11/14/18 09:50 Back - Upper Gram Stain - Final 11/14/18 09:50 Back - Upper Wound Culture - Preliminary 11/12/18 13:03 Blood Blood Culture - Preliminary 11/12/18 12:34 Blood Blood Culture - Preliminary 11/12/18 18:08 Synovial Fluid - Knee Gram Stain - Final 11/12/18 18:08 Synovial Fluid - Knee Body Fluid Culture - Final 11/12/18 18:31 Nose MRSA (PCR) - Final Medications Active Medications: Acetaminophen (Tylenol) 650 mg PO Q6HP PRN PRN Reason: PAIN/FEVER > 101 Hydrocodone Bitart/Acetaminophen ([place] 10/325mg) 1 tab PO QIDP PRN PRN Reason: Pain Last Admin: 11/13/18 20:22 Dose: 1 tab Documented by: Admin: 11/12/18 23:16 Dose: 1 tab Documented by: DALTON Albuterol Sulfate (Ventolin) 2.5 mg NEB Q2HP PRN PRN Reason: Shortness Of Breath Albuterol Sulfate (Ventolin) 2.5 mg NEB TID [facility] Last Admin: 11/14/18 20:57 Dose: 2.5 mg Documented by: Admin: 11/14/18 15:10 Dose: 2.5 mg Documented by: [email or web address] Admin: 11/14/18 07:25 Dose: 2.5 mg Documented by: [email or web address] Admin: 11/13/18 21:53 Dose: Not Given Documented by: [email or web address] Non-Admin Reason: Patient Asleep Admin: 11/13/18 14:38 Dose: 2.5 mg Documented by: Admin: 11/13/18 07:25 Dose: Not Given Documented by: DIANA Non-Admin Reason: Patient Asleep Admin: 11/12/18 21:15 Dose: 2.5 mg Documented by: [email or web address] Atorvastatin Calcium (Lipitor) 40 mg PO [facility] Last Admin: 11/14/18 20:56 Dose: 40 mg Documented by: Admin: 11/13/18 20:22 Dose: 40 mg Documented by: Admin: 11/12/18 20:33 Dose: 40 mg Documented by: DALTON Bisacodyl (Dulcolax) 10 mg PO [facility] Last Admin: 11/14/18 20:56 Dose: 10 mg Documented by: Admin: 11/13/18 20:21 Dose: 10 mg Documented by: Admin: 11/12/18 20:34 Dose: 10 mg Documented by: DALTON Bisoprolol Fumarate (Zebeta) 5 mg PO DAILY [facility] Last Admin: 11/15/18 09:06 Dose: 5 mg Documented by: Admin: 11/14/18 09:47 Dose: 5 mg Documented by: [email or web address] Admin: 11/13/18 09:13 Dose: 5 mg Documented by: [id number] Dextrose (Dextrose 50%) 0 ml IV UD PRN PRN Reason: Hypoglycemia Diagnostic Test (Pha) (Accu-Chek) 1 each FS ACHS [facility] Last Admin: 11/15/18 06:56 Dose: 1 each Documented by: [email or web address] Admin: 11/14/18 20:55 Dose: 1 each Documented by: Admin: 11/14/18 17:23 Dose: 1 each Documented by: [email or web address] Admin: 11/14/18 11:47 Dose: 1 each Documented by: Admin: 11/14/18 08:11 Dose: 1 each Documented by: [email or web address] Admin: 11/13/18 20:24 Dose: 1 each Documented by: Admin: 11/13/18 17:27 Dose: 1 each Documented by: [email or web address] Admin: 11/13/18 11:24 Dose: 1 each Documented by: [email or web address] Admin: 11/13/18 06:50 Dose: 1 each Documented by: [email or web address] Admin: 11/12/18 19:50 Dose: 1 each Documented by: DALTON Doxycycline Hyclate (Doxycycline Hyclate) 100 mg PO BID [facility]; Protocol Furosemide (Lasix) 80 mg PO DAILY [facility] Last Admin: 11/15/18 09:06 Dose: 80 mg Documented by: Admin: 11/14/18 10:53 Dose: Not Given Documented by: [facility] Non-Admin Reason: Clinical Judgement Comments: Spoke with Dr. Sosa and to hold this dose of Lasix due to increase in kidney function and giving iv fluids Admin: 11/13/18 09:13 Dose: 80 mg Documented by: [email or web address] Gabapentin (Neurontin) 600 mg PO TID [facility] Last Admin: 11/15/18 09:06 Dose: 600 mg Documented by: Admin: 11/14/18 20:56 Dose: 600 mg Documented by: Admin: 11/14/18 14:47 Dose: 600 mg Documented by: [email or web address] Admin: 11/14/18 09:47 Dose: 600 mg Documented by: [email or web address] Admin: 11/13/18 20:22 Dose: 600 mg Documented by: Admin: 11/13/18 15:28 Dose: 600 mg Documented by: [id number] Admin: 11/13/18 09:13 Dose: 600 mg Documented by: [email or web address] Admin: 11/12/18 20:34 Dose: 600 mg Documented by: DALTON Glucose (Insta-Glucose) 15 gm PO PRN PRN PRN Reason: Hypoglycemia Heparin Sodium (Porcine) (Heparin) 5,000 unit SQ Q12 [facility] Last Admin: 11/15/18 09:07 Dose: 5,000 unit Documented by: [email or web address] Admin: 11/14/18 20:56 Dose: 5,000 unit Documented by: Admin: 11/14/18 09:48 Dose: 5,000 unit Documented by: [email or web address] Admin: 11/13/18 20:21 Dose: 5,000 unit Documented by: Admin: 11/13/18 09:13 Dose: 5,000 unit Documented by: Admin: 11/12/18 20:34 Dose: 5,000 unit Documented by: DALTON Insulin Human Lispro (Humalog) 0 unit SQ ACHS [facility]; Protocol Last Admin: 11/15/18 06:59 Dose: 1 unit Documented by: [email or web address] Admin: 11/14/18 21:10 Dose: 4 unit Documented by: Admin: 11/14/18 17:27 Dose: 4 unit Documented by: Admin: 11/14/18 11:55 Dose: 2 unit Documented by: Admin: 11/14/18 08:11 Dose: Not Given Documented by: [email or web address] Non-Admin Reason: No Coverage Needed Admin: 11/13/18 20:29 Dose: 4 unit Documented by: Admin: 11/13/18 17:27 Dose: 3 unit Documented by: [id number] Admin: 11/13/18 11:30 Dose: 3 unit Documented by: [email or web address] Admin: 11/13/18 08:02 Dose: 1 unit Documented by: [email or web address] Admin: 11/12/18 19:55 Dose: Not Given Documented by: DALTON Non-Admin Reason: pt not eating dinner Lactobacillus Rhamnosus (Culturelle) 1 cap PO DAILY [facility] Last Admin: 11/15/18 09:06 Dose: 1 cap Documented by: Admin: 11/14/18 09:47 Dose: 1 cap Documented by: [email or web address] Admin: 11/13/18 09:13 Dose: 1 cap Documented by: [email or web address] Levothyroxine Sodium (Synthroid) 50 mcg PO QAMAC [facility] Last Admin: 11/15/18 06:55 Dose: 50 mcg Documented by: Admin: 11/14/18 08:10 Dose: 50 mcg Documented by: [email or web address] Admin: 11/13/18 08:02 Dose: 50 mcg Documented by: [email or web address] Lisinopril (Zestril) 5 mg PO DAILY [facility] Last Admin: 11/15/18 09:06 Dose: 5 mg Documented by: Admin: 11/14/18 09:47 Dose: 5 mg Documented by: [email or web address] Admin: 11/13/18 09:13 Dose: 5 mg Documented by: [id number] Metformin HCl (Glucophage) 1,000 mg PO [facility] Last Admin: 11/15/18 08:23 Dose: 1,000 mg Documented by: [email or web address] Montelukast Sodium (Singular) 10 mg PO DAILY [facility] Last Admin: 11/15/18 09:06 Dose: 10 mg Documented by: Admin: 11/14/18 09:47 Dose: 10 mg Documented by: [email or web address] Admin: 11/13/18 09:13 Dose: 10 mg Documented by: [email or web address] Naloxone HCl (Narcan) 0.1 mg IV Q2MIN PRN PRN Reason: Opiate Reversal Ondansetron HCl (Zofran) 4 mg IV Q6HP PRN PRN Reason: Nausea And Vomiting Pantoprazole Sodium (Protonix) 40 mg PO [facility] Last Admin: 11/15/18 06:55 Dose: 40 mg Documented by: Admin: 11/14/18 08:10 Dose: 40 mg Documented by: [email or web address] Admin: 11/13/18 08:02 Dose: 40 mg Documented by: [email or web address] Polyethylene Glycol (Miralax) 17 gm PO DAILY [facility] Last Admin: 11/15/18 09:07 Dose: 17 gm Documented by: Admin: 11/14/18 09:48 Dose: Not Given Documented by: [email or web address] Non-Admin Reason: Patient Refused Admin: 11/13/18 09:14 Dose: 17 gm Documented by: [email or web address] Potassium Chloride (Kdur) 10 meq PO [facility] Last Admin: 11/15/18 08:24 Dose: 10 meq Documented by: Admin: 11/14/18 09:47 Dose: 10 meq Documented by: [email or web address] Admin: 11/13/18 09:13 Dose: 10 meq Documented by: [email or web address] Prednisone (Prednisone) 20 mg PO [facility] Last Admin: 11/15/18 08:24 Dose: 20 mg Documented by: Admin: 11/14/18 09:47 Dose: 20 mg Documented by: [email or web address] Sodium Chloride (Saline Flush) 10 ml IV Q8 [facility] Last Admin: 11/15/18 06:50 Dose: 10 ml Documented by: Admin: 11/15/18 04:45 Dose: 10 ml Documented by: Admin: 11/14/18 21:11 Dose: 10 ml Documented by: Admin: 11/14/18 14:01 Dose: Not Given Documented by: [email or web address] Non-Admin Reason: Continuous IV Admin: 11/14/18 05:50 Dose: 10 ml Documented by: Admin: 11/13/18 20:22 Dose: 10 ml Documented by: [email or web address] Admin: 11/13/18 12:11 Dose: 10 ml Documented by: [email or web address] Admin: 11/13/18 05:36 Dose: 10 ml Documented by: Admin: 11/12/18 20:34 Dose: Not Given Documented by: DALTON Non-Admin Reason: Continuous IV Admin: 11/12/18 19:50 Dose: 10 ml Documented by: DALTON Assessment and Plan - Narrative A/P Narrative: Assessment: 1. Acute arthritis involving left knee and first DIP and CMC joints: resolving workup negative for septic arthritis [white cell count, Gram stain, imaging]: blood, left knee aspirate cultures negative - CT of left hand and left knee suggestive of severe degenerative osteoarthritis with erosive changes. No concerns for septic arthritis or osteomyelitis 2. 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 Carbuncle over cervical thoracic spine area without any deeper involvement: s/p bedside drainage yesterday - now on oral Doxycycline x 3 more days Recommendations: Stop IV vancomycin -Start oral doxycycline 100 mg twice daily for 3 more days with stop date of 11/17/18 evening will sign off. No ID follow up needed unless pt has new infection. Steven Merino MD Infectious diseases
[2018-11-15] MEDS ORDERED: DOXYCYCLINE HYCLATE 100 MG TABLET.ORL PO SCH (21:00)
== END 2018-11-15 12:57 | DRG 554 ==
LOC: ED 11:25 → MEDSUR 11:25 → OBSVTOIN 18:04 → MEDSUR 18:07
PROVIDERS: ADMIT Internal Medicine; ATTEND Internal Medicine

== ENCOUNTER 2025-08-25 10:55 | Observation (INO) ==
[2025-08-25] MEDS: 0.9 % SODIUM CHLORIDE 1,000 ML IV ONE (12:14)
[2025-08-25 12:56] LABS: Basophils # (Auto) 0.03 K/mcL (0.00-0.30); Basophils % (Auto) 0.4 % (0.0-2.0); Eosinophils # (Auto) 0.01 K/mcL (0.00-0.70); Eosinophils % (Auto) 0.1 % (0.0-7.0); Hematocrit 31.7 % (34.1-44.9); Hemoglobin 9.6 g/dL (11.2-15.7); Lymphocytes # (Auto) 0.82 K/mcL (1.50-4.80); Lymphocytes % (Auto) 11.8 % (15.5-49.0); Mean Corpuscular HGB Conc 30.3 g/dL (31.0-36.0); Monocytes # (Auto) 0.81 K/mcL (0.10-0.90); Monocytes % (Auto) 11.7 % (1.0-12.0); Neutrophils % (Auto) 75.9 % (38.0-78.0); Platelet Count 190 K/mcL (140-440); RBC 3.52 M/mcL (3.59-5.38); WBC 6.9 K/mcL (4.5-11.0)
[2025-08-25 13:13] LABS: ALT/SGPT 7 U/L (<40); AST/SGOT 19 U/L (<32); Albumin 4.1 gm/dL (3.2-5.2); Albumin/Globulin Ratio 1.2 (1.0-2.3); Alkaline Phosphatase 69 U/L (39-117); Anion Gap 14.0 (8.0-16.0); Bilirubin,Total 0.6 mg/dL (0.1-1.0); Blood Urea Nitrogen 36 mg/dL (8-23); Calcium 9.4 mg/dL (8.6-10.4); Carbon Dioxide 28 mmol/L (22-30); Chloride 100 mmol/L (96-108); Globulin 3.3 gm/dL (2.2-3.7); Glucose 167 mg/dL (70-105); Potassium 4.0 mmol/L (3.3-5.1); Sodium 142 mmol/L (133-145); Thyroid Stimulating Hormone 0.74 uIU/mL (0.27-5.01)
[2025-08-25 16:45] LABS: Bacteria,Urine Many /hpf (0); Bilirubin,Urine NEGATIVE (Negative); Color,Urine LT. YELLOW; Glucose,Urine (UA) NEGATIVE (Negative); Ketones,Urine NEGATIVE (Negative); Leukocyte Esterase,Urine MODERATE /uL (Negative); PH,Urine 6.0 (5.0-9.0); Protein,Urine TRACE mg/dL (Negative); Specific Gravity,Urine 1.010 (1.000-1.035); Urobilinogen,Urine 0.2 mg/dL
[2025-08-25] MEDS: cefTRIAXone 1 GM VIAL IV ONE ×2 (17:06→22:09)
[2025-08-25] MEDS ORDERED: ONDANSETRON 4 MG/2 ML VIAL IV PRN (17:20)
[2025-08-25] MEDS ORDERED: IPRATROPIUM/ALBUTEROL 3 ML AMPUL.NEB NEB PRN (17:20)
[2025-08-25] MEDS ORDERED: DEXTROSE 50% 50 ML VIAL IV PRN (17:20)
[2025-08-25] MEDS ORDERED: DEXTROSE 31 GM ORAL.SUSP PO PRN (17:20)
[2025-08-25] MEDS: INSULIN LISPRO 1 UNIT/0.01 ML UNIT SQ SCH (17:45)
[2025-08-25] MEDS ORDERED: BISACODYL 10 MG SUPP.RECT PR PRN (19:57)
[2025-08-25] MEDS ORDERED: ACETAMINOPHEN (PP) 325MG TABLET (#50) PO PRN (19:57)
[2025-08-25] MEDS: ACETAMINOPHEN 325 MG TABLET PO PRN (21:44)
[2025-08-25] MEDS: DOCUSATE SODIUM 100 MG CAPSULE PO SCH (21:45)
[2025-08-25] MEDS: SENNOSIDES 1 TABLET PO SCH (21:45)
[2025-08-25] MEDS ORDERED: MAGNESIUM OXIDE 400 MG TABLET PO PRN (21:49)
[2025-08-25] MEDS: GABAPENTIN 300 MG CAPSULE PO SCH (22:09)
[2025-08-25] MEDS: 0.9 % SODIUM CHLORIDE 10 ML SYRINGE IV SCH (22:09)
[2025-08-25] MEDS: LISINOPRIL 5 MG TABLET PO SCH (22:09)
[2025-08-25] MEDS: ATORVASTATIN 10 MG TABLET PO SCH (22:09)
[2025-08-26 06:47] LABS: ALT/SGPT 6 U/L (<40); AST/SGOT 19 U/L (<32); Albumin 3.7 gm/dL (3.2-5.2); Albumin/Globulin Ratio 1.1 (1.0-2.3); Alkaline Phosphatase 66 U/L (39-117); Anion Gap 14.0 (8.0-16.0); Bilirubin,Total 0.4 mg/dL (0.1-1.0); Blood Urea Nitrogen 31 mg/dL (8-23); Calcium 9.1 mg/dL (8.6-10.4); Carbon Dioxide 27 mmol/L (22-30); Chloride 104 mmol/L (96-108); Globulin 3.4 gm/dL (2.2-3.7); Glucose 98 mg/dL (70-105); Potassium 3.6 mmol/L (3.3-5.1); Sodium 145 mmol/L (133-145)
[2025-08-26 06:48] LABS: Basophils # (Auto) 0.01 K/mcL (0.00-0.30); Basophils % (Auto) 0.2 % (0.0-2.0); Eosinophils # (Auto) 0.04 K/mcL (0.00-0.70); Eosinophils % (Auto) 0.8 % (0.0-7.0); Hematocrit 30.8 % (34.1-44.9); Hemoglobin 9.4 g/dL (11.2-15.7); Lymphocytes # (Auto) 1.06 K/mcL (1.50-4.80); Lymphocytes % (Auto) 21.9 % (15.5-49.0); Mean Corpuscular HGB Conc 30.5 g/dL (31.0-36.0); Monocytes # (Auto) 0.53 K/mcL (0.10-0.90); Monocytes % (Auto) 11.0 % (1.0-12.0); Neutrophils % (Auto) 65.7 % (38.0-78.0); Platelet Count 149 K/mcL (140-440); RBC 3.42 M/mcL (3.59-5.38); WBC 4.8 K/mcL (4.5-11.0)
[2025-08-26 07:07] LABS: Estimated Average Glucose(eAG) 131 mg/dL; Hemoglobin A1C 6.2 % Hgb (4.0-6.0)
[2025-08-26] MEDS: cefTRIAXone 2 GM in DEXTROSE 5% IN WATER 50 ML IV SCH (08:12)
[2025-08-26] MEDS: FUROSEMIDE 40 MG TABLET PO SCH (08:12)
[2025-08-26] MEDS: LEVOTHYROXINE 50 MCG TABLET PO SCH (08:13)
[2025-08-26] MEDS: ALLOPURINOL 100 MG TABLET PO SCH (08:13)
[2025-08-26] MEDS: MONTELUKAST 10 MG TABLET PO SCH (08:14)
[2025-08-26] MEDS: ISOSORBIDE DINITRATE 10 MG TABLET PO SCH (08:14)
[2025-08-26] MEDS: OMEPRAZOLE 20 MG CAPSULE PO SCH (08:14)
[2025-08-26] MEDS: POTASSIUM CHLORIDE 10 MEQ TABLET PO SCH (08:15)
[2025-08-26] MEDS: CALCIUM CARBONATE 500 MG TAB.CHEW PO SCH (08:15)
[2025-08-26] MEDS ORDERED: ISOSORBIDE DINITRATE 10 MG TABLET PO SCH (09:00)
[2025-08-26] MEDS ORDERED: GABAPENTIN 300 MG CAPSULE PO SCH (21:00)
[2025-08-26] MEDS: IBUPROFEN 600 MG TABLET PO PRN (23:42)
[2025-08-27 03:21] VITALS: TEMP 97
[2025-08-27 06:45] LABS: ALT/SGPT < 5 U/L (<40); AST/SGOT 15 U/L (<32); Albumin 3.4 gm/dL (3.2-5.2); Albumin/Globulin Ratio 1.2 (1.0-2.3); Alkaline Phosphatase 58 U/L (39-117); Anion Gap 11.0 (8.0-16.0); Bilirubin,Total 0.4 mg/dL (0.1-1.0); Blood Urea Nitrogen 36 mg/dL (8-23); Calcium 8.4 mg/dL (8.6-10.4); Carbon Dioxide 29 mmol/L (22-30); Chloride 101 mmol/L (96-108); Globulin 2.8 gm/dL (2.2-3.7); Glucose 117 mg/dL (70-105); Potassium 3.4 mmol/L (3.3-5.1); Sodium 141 mmol/L (133-145)
[2025-08-27 07:27] VITALS: O2SAT 94
[2025-08-27 09:28] LABS: Basophils # (Auto) 0.02 K/mcL (0.00-0.30); Basophils % (Auto) 0.6 % (0.0-2.0); Eosinophils # (Auto) 0.10 K/mcL (0.00-0.70); Eosinophils % (Auto) 2.8 % (0.0-7.0); Hematocrit 28.2 % (34.1-44.9); Hemoglobin 8.4 g/dL (11.2-15.7); Lymphocytes # (Auto) 1.36 K/mcL (1.50-4.80); Lymphocytes % (Auto) 38.6 % (15.5-49.0); Mean Corpuscular HGB Conc 29.8 g/dL (31.0-36.0); Monocytes # (Auto) 0.44 K/mcL (0.10-0.90); Monocytes % (Auto) 12.5 % (1.0-12.0); Neutrophils % (Auto) 45.2 % (38.0-78.0); Platelet Count 143 K/mcL (140-440); RBC 3.07 M/mcL (3.59-5.38); WBC 3.5 K/mcL (4.5-11.0)
== END 2025-08-27 13:15 ==
LOC: MEDSUR 10:55 → ED 10:55 → MEDSUR 17:20
PROVIDERS: ADMIT Internal Medicine; ATTEND Internal Medicine